=== PATIENT | female | born 1965 | race Caucasian/White ===

== ENCOUNTER 2019-12-15 08:12 | Outpatient (CLI) | payer MEDICARE, MEDICAID, SELFPAY ==
[2019-12-15 09:38] LABS: Alanine Aminotransferase 26 U/L (4-35); Albumin Level 4.3 g/dL (3.5-5.1); Alkaline Phosphatase 106 U/L (38-126); Aspartate Amino Transferase 24 U/L (14-36); Bilirubin,Total 0.5 mg/dL (0.2-1.3); Blood Urea Nitrogen 21 mg/dL (7-17); Calcium 9.6 mg/dL (8.4-10.2); Carbon Dioxide 30 mmol/L (22-30); Chloride 102 mmol/L (98-107); Estimated Glomerular Filt Rate > 60; Glucose 88 mg/dL (65-105); Potassium 4.9 mmol/L (3.4-5.0); Sodium 143 mmol/L (137-145)
== END 2019-12-15 08:13 | disposition home or self-care (01) ==
PROVIDERS: PCP Family Medicine; Visit Provider Physician Assistant
DX: Z13.1 Encounter for screening for diabetes mellitus (principal); Z13.220 Encounter for screening for lipoid disorders
CPT/HCPCS: 36415; 80053

== ENCOUNTER 2020-04-05 00:09 | Outpatient (CLI) | payer MEDICARE, SELFPAY ==
[2020-04-05 17:43] LABS: SARS-CoV-2 RNA PCR Negative
== END 2020-04-05 00:10 | disposition home or self-care (01) ==
LOC: ANHCOVIDDT 00:09
PROVIDERS: PCP Family Medicine; Visit Provider Podiatrist Foot & Ankle Surgery
DX: Z01.818 Encounter for other preprocedural examination (principal); Z11.59 Encounter for screening for other viral diseases
CPT/HCPCS: 87635; C9803; U0003

== ENCOUNTER 2020-04-07 00:57 | Day surgery (SDC) | payer MEDICARE, SELFPAY ==
[2020-03-24 16:24] VITALS: BMI 29.7
--- NOTE | ~2020-04-07 | XR_ITS ---
EXAMINATION: XR surgery orthopedic DATE: 04/07/2020 09:25 INDICATION: Left second proximal interphalangeal joint arthrodesis TECHNIQUE: Single fluoroscopic dorsal plantar spot images of the left forefoot were obtained during p rocedure performed by Dr. Castillo. Radiologist was not present for the imaging or procedure. The [place] of fluoroscopy time used during this procedure was 0.2 minutes. COMPARISON: None. FINDINGS: Image demonstrates changes of an internally fixed left second proximal interphalangeal joint arthrode sis with a compression screw placed over an axially directed guide pin. There is expected postoperati ve gas at the joint space. Additional postoperative changes a chronic bunionectomy at the medial head of the first metatarsal and screw fixation of a old healed realignment osteotomy at the head of the first metatarsal. Alignment appears near-anatomic. No fracture. Mild osteoarthritis at the first meta tarsophalangeal and first interphalangeal joints. IMPRESSION: 1. Expected appearance post instrumented left second toe proximal interphalangeal joint arthrodesis. See procedure note for further detail. Reviewed, dictated and finalized at location A. IMPRESSION: 1. Expected appearance post instrumented left second toe proximal interphalange al joint arthrodesis. See procedure note for further detail.
--- NOTE | 2020-04-07 07:12 | WPDHPUPDATE1 ---
History and Physical Update Update Date/Time: 04/07/20 07:12 History and Physical has been reviewed, including an updated exam of the patient. There are NO changes in the patient's condition. Risks, benefits, and alternatives have been discussed and questions answered. Patient agrees to proceed with procedure.
--- NOTE | 2020-04-07 07:24 | WPDANESEPPF ---
Anes - Initial Pre Proc Eval Procedure: Operation Date: 04/07/20 09:00 Proposed Procedures p Arthrodesis of Proximal Interphalangeal Joint Second Digit Left Foot - Quintin Castillo JR, MD Date/Time: 04/07/20 07:24 Surgeon: Quintin Castillo JR, MD Pre Op Diagnosis: fx with malunion 2nd digit left foot Patient Data Age: 55 Gender: F Height: 5 ft 7 in Weight: 90.2 kg Allergies Allergy/AdvReac Type Severity Reaction Status Date / Time No Known Allergies Allergy Verified 04/07/20 07:21 Home Medications Medication Instructions Recorded Confirmed Type aripiprazole 10 mg tablet 10 mg PO DAILY #90 tablet 10/13/19 04/07/20 Rx bupropion HCl 150 mg 24 hr tablet, 150 mg PO QAM #90 tablet 10/13/19 04/07/20 Rx extended release meloxicam 15 mg tablet 15 mg PO DAILY #30 tablet 12/14/19 04/07/20 Rx Acetaminophen Extra Strength 500 mg BYMOUTH TID PRN 03/24/20 04/07/20 History Patient hx anesthesia problems: none Family hx anesthesia problems: none [facility] Past Medical History Medical History Schizophrenia Surgical History Surgical History H/O knee surgery H/O: hysterectomy (~2014) S/P foot surgery, right (~2018) Family History Family History Mother Depression Family history of mental disorder Sibling Patient's brother is in good health Father Patient's father is Social History Social History Smoking status: Former smoker Second hand tobacco smoke exposure: No Smoking end date: 11/03/92 Alcohol intake: never Gender identity (if verbalized by the patient): Female Anes - Eval Final PreProcedure Day of Procedure 04/07/20 07:24 Patient weight: obese Heart: regular rate and rhythm Lungs: clear to auscultation Airway: Mallampati scale class II Neurological: other (alert) Last oral intake: >/= 8 hours ASA classification: III Emergent: no Anesthetic plan: proceed Anesthesia type and monitoring: general LMA and standard monitoring Informed Consent: The patient's anesthetic plan and its attendant risks and benefits were discussed with the patient/family/POA. Questions were solicited and answers provided to the satisfaction of the patient/family/POA.
[2020-04-07] MEDS: LACTATED RINGERS 1,000 ML 30 ML IV CONT (07:40)
[2020-04-07 07:56] VITALS: BP 113/81; PULSE 71; RESP 16; TEMP 36.7; O2SAT 100
[2020-04-07] MEDS: ceFAZolin 2 GM/D5W 50 ML 2 GM/50 ML BAG IVPB (08:33)
[2020-04-07] MEDS: LIDOCAINE HCL 2% LOCAL INJ 20 ML VIAL 10 ML INFILTRATE (08:43)
--- NOTE | 2020-04-07 09:32 | PM.OP ---
Procedure Note - Brief Procedure Note - Brief Date of procedure: 04/07/20 Pre-op diagnosis: fx with malunion 2nd digit left foot Post-op diagnosis: same Procedure performed: Arthrodesis of the proximal interphalangeal joint of the left foot Anesthesia: MAC and local Surgeon: Quintin Castillo JR, DPM Estimated blood loss (mL): 1 Complications: No immediate complications Condition: stable Disposition: same day
[2020-04-07 09:35] VITALS: BP 102/69; PULSE 55; RESP 18; O2SAT 98
[2020-04-07 10:05] VITALS: BP 106/71; PULSE 51; RESP 16
[2020-04-07 10:30] VITALS: BP 123/68; PULSE 50; RESP 16
[2020-04-07 11:00] VITALS: BP 120/79; PULSE 48; RESP 16
--- NOTE | 2020-04-07 17:11 | OP_ITS ---
DATE OF PROCEDURE: 04/07/2020 PREOPERATIVE DIAGNOSIS: Malunion of fracture of 2nd digit, left foot. POSTOPERATIVE DIAGNOSIS: Malunion of fracture of 2nd digit, left foot. PROCEDURE PERFORMED: Arthrodesis of the proximal interphalangeal joint to the left 2nd digit. PATHOLOGY: None. ANESTHESIA: MAC with local. HEMOSTASIS: Pneumatic ankle tourniquet at 250 mmHg. ESTIMATED BLOOD LOSS: Minimal. MATERIALS USED: One [employer] Phalinx hammertoe implant, medium with one 0.045 inch K-wire. INJECTABLES: 20 mL of a 1:1 mixture of 2% lidocaine plain and 0.5% Marcaine plain injected preoperatively. COMPLICATIONS: None. PROCEDURE IN DETAIL: Under mild sedation, the patient was brought to the operating room, placed on the operating table in the supine position. Pneumatic ankle tourniquet was placed about the patient's left ankle. Following IV sedation, local anesthesia was obtained about the left foot utilizing 20 mL of a 1:1 mixture of 2% lidocaine plain and 0.5% Marcaine plain. The foot was then scrubbed, prepped, and draped in the usual aseptic manner. An Esmarch bandage was then used to examine the patient's left foot and pneumatic ankle tourniquet was then inflated. Surgery began in the following manner. Attention was directed to the dorsal aspect of the second digit of the left foot where an incision was made starting along the base of the proximal phalanx of the second digit extending to the PIP joint of the left second digit. Incision was continued deep down through subcutaneous tissues using sharp and blunt dissection. All bleeders were ligated and cauterized as necessary. At this point, a transverse tenotomy was performed over the dorsal aspect of the proximal interphalangeal joint, but there was a noted clinical malposition of the second digit in the transverse plane laterally. At this point, the head of the proximal phalanx was freed of any tendinous and capsular structures. Next, the base of the middle phalanx was also exposed and freed of all tendinous and ligamentous structures. There was significant damage to the base of the proximal phalanx apparent with an old malunited intra-articular fracture to the second digit with malunion and dislocation. At this point, the abnormal portion of the middle phalanx was resected utilizing an oscillating bone cell. Next, the head of the proximal phalanx was also resected utilizing an oscillating bone saw. At this point, utilizing standard principles and techniques for the [facility] Phalinx hammertoe implant, size medium was positioned in a cannulated fashion along the PIP joint of the second digit. After implantation, the cannulated wire was drilled proximally into the proximal phalanx in order to help stabilize the digit. After implantation, the second digit was noted to be aligned in all planes. Next, a Satsuma was used to hold the K-wire which was bent dorsally and then cut utilizing a wireless manager. A DermApprovedgan ball was placed along the tip of the cut K-wire. Next, the tendinous structures to the PIP joint were reapproximated and coapted utilizing 3-0 Vicryl. Next, the subcutaneous structures were reapproximated and coapted utilizing 4-0 Vicryl. Next, the skin was reapproximated and coapted utilizing 4-0 Prolene in horizontal mattress suture fashion technique. Upon completion of procedure, the incision was dressed with Adaptic, 4x4s, Kerlix, and Coban. The pneumatic ankle tourniquet was then deflated and a prompt hyperemic response was noted to all digits of the left foot. A CAM walker boot was then applied. It is important to note that Dr. Castillo was present throughout the procedure. The patient did very well with the procedure and the anesthesia. She was transferred to the recovery room with vital signs stabl
== END 2020-04-07 11:45 | disposition home or self-care (01) ==
PROVIDERS: PCP Family Medicine; Visit Provider Podiatrist Foot & Ankle Surgery
PROC: (CPT 28750; principal; 2020-04-07 09:00)
DX: S92.512K Displaced fracture of proximal phalanx of left lesser toe(s), subsequent encounter for fracture with nonunion (principal); F20.9 Schizophrenia, unspecified; Z87.891 Personal history of nicotine dependence; E66.9 Obesity, unspecified; Z68.31 Body mass index [BMI] 31.0-31.9, adult; X50.0XXD Overexertion from strenuous movement or load, subsequent encounter
CPT/HCPCS: 28285; 87635; C1776; C9803; J0690; J2250; J2704; J3010; J7120; U0003

== ENCOUNTER 2020-04-28 09:26 | Outpatient (CLI) | payer MEDICARE, SELFPAY ==
--- NOTE | ~2020-04-28 | MM_ITS ---
EXAMINATION: MM screening [facility] BI w cici HISTORY: Screening mammogram TECHNIQUE: Craniocaudal and mediolateral oblique 3-D tomosynthesis images were obtained and synthetic 2-D images were generated. CAD analysis was submitted and interpreted. COMPARISON: 12/18/2018 bilateral digital screening mammogram BREAST PARENCHYMAL COMPOSITION: The breasts are almost entirely fatty. FINDINGS: There is no evidence of suspicious mass, calcification, or architectural distortion to sugg est malignancy in either breast. There has been no suspicious interval change. IMPRESSION: 1. No mammographic evidence of malignancy. 2. Recommend routine screening mammography in one year. BI-RADS Category 1: Negative Reviewed, dictated and finalized at location A.
[2020-04-28 10:38] LABS: Cholesterol 199 mg/dL (0-200); HDL Direct 48 mg/dL; Triglycerides 95 mg/dL (<150)
[2020-04-28 10:48] LABS: LDL Cholesterol Direct 113 mg/dL
== END 2020-04-28 09:27 | disposition home or self-care (01) ==
PROVIDERS: PCP Family Medicine; Visit Provider Physician Assistant
DX: Z12.31 Encounter for screening mammogram for malignant neoplasm of breast (principal); E78.5 Hyperlipidemia, unspecified; I10 Essential (primary) hypertension
CPT/HCPCS: 36415; 77063; 77067; 80061

== ENCOUNTER 2020-05-30 10:27 | Outpatient (CLI) | payer MEDICARE, SELFPAY ==
[2020-05-30 11:30] LABS: Alanine Aminotransferase 33 U/L (4-35); Aspartate Amino Transferase 26 U/L (14-36)
== END 2020-05-30 10:28 | disposition home or self-care (01) ==
PROVIDERS: PCP Family Medicine; Visit Provider Podiatrist Foot & Ankle Surgery
DX: B35.1 Tinea unguium (principal)
CPT/HCPCS: 36415; 84450; 84460

== ENCOUNTER 2020-08-09 10:44 | Outpatient (CLI) | payer MEDICARE, SELFPAY ==
[2020-08-09 11:53] LABS: Alanine Aminotransferase 24 U/L (4-35); Aspartate Amino Transferase 26 U/L (14-36)
== END 2020-08-09 10:45 | disposition home or self-care (01) ==
LOC: ANHLAB 10:48
PROVIDERS: PCP Family Medicine; Visit Provider Podiatrist Foot & Ankle Surgery
DX: B35.1 Tinea unguium (principal)
CPT/HCPCS: 36415; 84450; 84460

== ENCOUNTER 2020-10-16 09:50 | Outpatient (CLI) | payer MEDICARE, SELFPAY ==
[2020-10-16 10:24] LABS: Alanine Aminotransferase 30 U/L (4-35); Albumin Level 4.5 g/dL (3.5-5.1); Alkaline Phosphatase 102 U/L (38-126); Anion Gap 6 mmol/L (8-16); Aspartate Amino Transferase 31 U/L (14-36); Bilirubin,Total 0.4 mg/dL (0.2-1.3); Blood Urea Nitrogen 21 mg/dL (7-17); Calcium 9.9 mg/dL (8.4-10.2); Carbon Dioxide 29 mmol/L (22-30); Chloride 106 mmol/L (98-107); Cholesterol 231 mg/dL (0-200); Estimated Glomerular Filt Rate > 60; Glucose 97 mg/dL (65-105); HDL Direct 62 mg/dL; Potassium 4.5 mmol/L (3.4-5.0); Sodium 141 mmol/L (137-145); Triglycerides 58 mg/dL (<150)
[2020-10-16 10:28] LABS: Hemoglobin A1C 4.8 % (<5.7)
[2020-10-16 10:36] LABS: LDL Cholesterol Direct 131 mg/dL
== END 2020-10-16 09:51 | disposition home or self-care (01) ==
LOC: ANHLAB 09:52
PROVIDERS: PCP Family Medicine; Visit Provider Physician Assistant
DX: Z13.1 Encounter for screening for diabetes mellitus (principal); E78.5 Hyperlipidemia, unspecified; R73.09 Other abnormal glucose
CPT/HCPCS: 36415; 80053; 80061; 83036

== ENCOUNTER → 2021-01-02 00:26 | Outpatient (CLI) | payer MEDICARE, SELFPAY ==
[2021-01-02 19:08] LABS: SARS-CoV-2 RNA PCR Negative
== END ==
PROVIDERS: PCP Family Medicine; Visit Provider Podiatrist Foot & Ankle Surgery
DX: Z01.812 Encounter for preprocedural laboratory examination (principal); Z20.822 Contact with and (suspected) exposure to COVID-19
CPT/HCPCS: C9803; U0003; U0005

== ENCOUNTER 2021-01-05 01:08 | Day surgery (SDC) | payer MEDICARE, MEDICAID, SELFPAY ==
[2021-01-01 18:48] VITALS: BMI 32.8
--- NOTE | 2021-01-04 13:42 | WPDANESEPPF ---
Anes - Initial Pre Proc Eval Procedure: Operation Date: 01/05/21 10:30 Proposed Procedures p Arthrodesis Of The Interphalangeal Joint Of The Left Hallux - Quintin Castillo JR, MD Date/Time: 01/04/21 13:42 Surgeon: Quintin Castillo JR, MD Pre Op Diagnosis: Arthritis Of Interphalangeal Joint Left Hallux Patient Data Age: 55 Gender: F Height: 1.7 m Weight: 95.25 kg Allergies Allergy/AdvReac Type Severity Reaction Status Date / Time No Known Allergies Allergy Verified 10/13/20 09:41 Home Medications Medication Instructions Recorded Confirmed Type meloxicam 15 mg tablet 15 mg PO DAILY #30 tablet 12/14/19 01/01/21 Rx aripiprazole 10 mg tablet 10 mg PO DAILY #90 tablet 10/13/20 01/01/21 Rx bupropion HCl 300 mg 24 hr tablet, 300 mg PO QAM #90 tablet 10/13/20 01/01/21 Rx extended release tramadol 50 mg PO BID PRN 01/01/21 01/01/21 History PMFSH Past Medical History Medical History (Updated 01/04/21 @ 13:43 by Edmund Petty MD) Bipolar 1 disorder Obesity Schizophrenia Surgical History Surgical History H/O knee surgery H/O: hysterectomy (~2014) S/P foot surgery, right (~2018) Family History Family History Mother Depression Family history of mental disorder Sibling Patient's brother is in good health Father Patient's father is Social History Social History Smoking status: Never smoker Second hand tobacco smoke exposure: No Smoking end date: 11/03/92 Alcohol intake: never Gender identity (if verbalized by the patient): Female Spiritual care concerns: No Anes - Eval Final PreProcedure Day of Procedure 01/04/21 13:42 Patient weight: obese Heart: regular rate and rhythm Lungs: clear to auscultation and normal air movement Airway: Mallampati scale class II Neurological: alert and oriented Last oral intake: >/= 8 hours ASA classification: III Emergent: no Anesthetic plan: proceed Anesthesia type and monitoring: general GIVS Informed Consent: The patient's anesthetic plan and its attendant risks and benefits were discussed with the patient/family/POA. Questions were solicited and answers provided to the satisfaction of the patient/family/POA.
--- NOTE | ~2021-01-05 | XR_ITS ---
EXAMINATION: XR surgery orthopedic EXAM DATE: 01/05/2021 11:14 INDICATION: Left foot arthrodesis. TECHNIQUE: Fluoroscopy used during XR surgery orthopedic performed by Dr. Quintin Castillo JR MD. The DAP for this procedure was 0.6 cGycm2. FINDINGS: There are orthopedic screws bridging the left 1st interphalangeal joint and 2nd proximal i nterphalangeal joint. There are 2 screws identified bridging an old 1st metatarsal fracture or osteot mark. Correlate with procedure note. IMPRESSION: Fluoroscopy used during arthrodesis left foot. Reviewed, dictated and finalized at location A. ILATED RIB FITTER
--- NOTE | 2021-01-05 07:14 | WPDHPUPDATE1 ---
History and Physical Update Update Date/Time: 01/05/21 07:14 History and Physical has been reviewed, including an updated exam of the patient. There are NO changes in the patient's condition. Risks, benefits, and alternatives have been discussed and questions answered. Patient agrees to proceed with procedure.
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
[2021-01-05] MEDS: LACTATED RINGERS 1,000 ML 30 ML IV CONT (09:30)
[2021-01-05] MEDS: BUPIVACAINE HCL 0.5% PF 30 ML VIAL INFILTRATE (10:16)
[2021-01-05] MEDS: ceFAZolin 2 GM/D5W 50 ML 2 GM/50 ML BAG IVPB (10:16)
[2021-01-05] MEDS: LIDOCAINE HCL 2% LOCAL INJ 20 ML VIAL 10 ML INFILTRATE (10:16)
[2021-01-05 10:27] VITALS: BP 110/63; PULSE 82; RESP 18; TEMP 36.8; O2SAT 97; BMI 32.8
[2021-01-05 11:24] VITALS: BP 112/67; PULSE 52; RESP 12; O2SAT 96
--- NOTE | 2021-01-05 11:50 | PM.PROC ---
Procedure Note - Detailed Date of procedure: 01/05/21 Pre-op diagnosis: Arthritis Of Interphalangeal Joint Left Hallux Anesthesia: GLMA and local Surgeon: Quintin Castillo JR, DPM Estimated blood loss (mL): 1 Drains: No Packing: No Pathology: none sent Complications: No immediate complications Condition: stable Disposition: same day Findings: Under mild sedation, the patient was brought to the operating room, placed on the operating table in the supine position. A pneumatic ankle tourniquet was placed about the patient's ankle. Following IV sedation, I performed a proximal first metatarsal Paiz Block with 20cc's of a one to one mix of 0.5% Marcaine plain and 2% Lidocaine plain. The foot was then scrubbed, prepped, and draped in the usual aseptic manner. An Esmarch bandage was then used to examine the patient's foot and pneumatic ankle tourniquet was then inflated. Surgery began in the following manner. Attention was directed to the hallux where a 3cm incision was made just proximal to the nail fold extending to the base of the hallux. A transverse tenotomy was created dorsal to the interphalangeal joint, next the head of the proximal phalanx was resected with an sagittal saw blade. Next, I denuded the cartilage with an oscillating saw blade from the base of the distal phalanx. I used a 2.0 drill bit to fenestrate the distal proximal phalanx and base of the distal phalanx of the hallux to facilitate fusion of the joint. Moreover, I drove a K wire from the base of the distal phalanx exiting the hallux and retrograded through the proximal phalanx unitl the sunchondral bone of the base of the proximal phalanx was felt. Fluoroscopy was used to make sure that the digit and implant were both appropriately positioned within the canals of the proximal and distal phalanges of the hallux. Next, I drove a 45mm by 3.8mm [employer] Headed cannulated screw from distal to proximal in a cannulated fashion excellent compression was noted. Again, I used fluoroscopy to make sure that the screw was within the intramedullary canal of the corresponding phalanges. I repaired the extensor tendon with 2.0 Vicryl. I reapproximated the subcutaneous structures with 4.0 Vicryl and the skin with 4-0 Monocryl in simple in running subcuticular suture fashion technique. The guidewire was removed and final fluoroscopic images were taken. Upon completion of the procedure, the incision was dressed with Adaptic, 4 x 4's, Kerlix, and Coban. The pneumatic ankle tourniquet was then deflated and a prompt hyperemic response noted to all digits of the foot. A surgical shoe was then applied. The patient did very well with the procedure and the anesthesia. The patient was transferred to the recovery room with vital signs stable and vascular status intact to all remaining toes of the affected foot. Following a period of postoperative monitoring, the patient will be discharged home on the following written and oral postoperative instructions: 1. Keep the dressing clean, dry, and intact. Use a cast protector bag with showers. 2. The patient should use a surgical shoe for ambulation postoperatively. 3. The patient should be on bedrest with bathroom priviliges and elevate the affected foot when at rest. 4. The patient to contact Dr. Castillo for all postop care and if any problems arise. 5. Prescriptions were written for Percocet 5/325 dispensed 40 to be taken 1 p.o. q.4 to 6 hours as needed for severe pain.
[2021-01-05 12:45] VITALS: BP 112/76; PULSE 52; RESP 20
== END 2021-01-05 13:00 | disposition home or self-care (01) ==
PROVIDERS: PCP Family Medicine; Visit Provider Podiatrist Foot & Ankle Surgery
PROC: (CPT 28715; principal; 2021-01-05 10:30)
DX: M19.072 Primary osteoarthritis, left ankle and foot (principal); F31.9 Bipolar disorder, unspecified; F20.9 Schizophrenia, unspecified; E66.9 Obesity, unspecified; Z68.32 Body mass index [BMI] 32.0-32.9, adult
CPT/HCPCS: 28755; C9803; J0690; J2250; J2405; J2704; J3010; J7120; U0003; U0005

== ENCOUNTER 2021-01-25 10:31 | Outpatient (CLI) | payer MEDICARE, MEDICAID, SELFPAY ==
[2021-01-25 11:16] LABS: Alanine Aminotransferase 17 U/L (4-35); Albumin Level 4.5 g/dL (3.5-5.1); Alkaline Phosphatase 96 U/L (38-126); Anion Gap 6 mmol/L (8-16); Aspartate Amino Transferase 23 U/L (14-36); Bilirubin,Total 0.2 mg/dL (0.2-1.3); Blood Urea Nitrogen 21 mg/dL (7-17); Calcium 9.8 mg/dL (8.4-10.2); Carbon Dioxide 31 mmol/L (22-30); Chloride 106 mmol/L (98-107); Estimated Glomerular Filt Rate > 60; Glucose 95 mg/dL (65-105); Potassium 4.7 mmol/L (3.4-5.0); Sodium 143 mmol/L (137-145); Uric Acid 3.4 mg/dL (2.5-7.5)
== END 2021-01-25 10:32 | disposition home or self-care (01) ==
PROVIDERS: PCP Family Medicine; Visit Provider Podiatrist Foot & Ankle Surgery
DX: M10.9 Gout, unspecified (principal)
CPT/HCPCS: 36415; 80053; 84550

== ENCOUNTER 2021-05-01 08:02 | Outpatient (CLI) | payer MEDICARE, SELFPAY ==
[2021-05-01 09:11] LABS: Cholesterol 219 mg/dL (0-200); HDL Direct 45 mg/dL; Triglycerides 91 mg/dL (<150)
[2021-05-01 09:12] LABS: Alanine Aminotransferase 24 U/L (4-35); Albumin Level 4.6 g/dL (3.5-5.1); Alkaline Phosphatase 86 U/L (38-126); Anion Gap 11 mmol/L (8-16); Aspartate Amino Transferase 28 U/L (14-36); Bilirubin,Total 0.2 mg/dL (0.2-1.3); Blood Urea Nitrogen 14 mg/dL (7-17); Calcium 9.5 mg/dL (8.4-10.2); Carbon Dioxide 27 mmol/L (22-30); Chloride 103 mmol/L (98-107); Estimated Glomerular Filt Rate > 60; Glucose 104 mg/dL (65-105); Potassium 4.2 mmol/L (3.4-5.0); Sodium 141 mmol/L (137-145)
[2021-05-01 09:22] LABS: LDL Cholesterol Direct 118 mg/dL
== END 2021-05-01 08:03 | disposition home or self-care (01) ==
PROVIDERS: PCP Family Medicine; Referring Provider Family Medicine; Visit Provider Physician Assistant
DX: Z00.00 Encounter for general adult medical examination without abnormal findings (principal); Z13.220 Encounter for screening for lipoid disorders; E66.9 Obesity, unspecified
CPT/HCPCS: 36415; 80053; 80061

== ENCOUNTER 2021-05-01 09:31 | Outpatient (CLI) | payer MEDICARE, SELFPAY ==
--- NOTE | ~2021-05-01 | MM_ITS ---
EXAMINATION: MM screening [facility] BI w cici HISTORY: Screening TECHNIQUE: Craniocaudal and mediolateral oblique 3-D tomosynthesis images were obtained and synthetic 2-D images were generated. CAD analysis was submitted and interpreted. COMPARISON: Comparison to multiple prior studies sequentially, with oldest reviewed study dated 12/18. BREAST PARENCHYMAL COMPOSITION: There are scattered areas of fibroglandular density. FINDINGS: There is no evidence of suspicious mass, calcification, or architectural distortion to sugg est malignancy in either breast. There has been no suspicious interval change. IMPRESSION: 1. No mammographic evidence of malignancy. 2. Recommend routine screening mammography in one year. BI-RADS Category 1: Negative Reviewed, dictated and finalized at location A.
== END 2021-05-01 09:32 | disposition home or self-care (01) ==
PROVIDERS: PCP Family Medicine; Visit Provider Physician Assistant
DX: Z12.31 Encounter for screening mammogram for malignant neoplasm of breast (principal)
CPT/HCPCS: 36415; 77063; 77067; 80053; 80061

== ENCOUNTER 2021-05-23 10:28 | Outpatient (CLI) | payer MEDICARE, SELFPAY ==
[2021-05-23 11:30] LABS: Alanine Aminotransferase 17 U/L (4-35); Aspartate Amino Transferase 33 U/L (14-36)
== END 2021-05-23 10:29 | disposition home or self-care (01) ==
LOC: ANHLAB 10:31
PROVIDERS: PCP Family Medicine; Visit Provider Podiatrist Foot & Ankle Surgery
DX: B35.1 Tinea unguium (principal)
CPT/HCPCS: 36415; 84450; 84460

== ENCOUNTER 2022-02-08 08:42 | Emergency (ER) | payer MEDICARE, SELFPAY ==
--- NOTE | ~2022-02-08 | XR_ITS ---
EXAMINATION: XR foot RT min 3V, XR heel RT min 2V EXAM DATE: 02/08/2022 09:31 INDICATION: Fall, foot pain, surgery October 2021. TECHNIQUE: Right foot dorsoplantar, lateral and oblique projections obtained and reviewed. Frontal and lateral projections right calcaneus. Comparison is made to prior examination from 07/02/2017. FINDINGS: Right metatarsal bones unremarkable. There are surgical changes at the talus, calcaneus, subtalar joint including arthrodesis of the subtalar joint. Hardware is intact. There is moderate-siz ed inferior calcaneal spur. Small Nieves's deformity. There are no acute fractures identified. Mild to moderate polyarticular primary osteoarthritis. There are old 3rd, 4th metatarsal neck fractures. Compared to previous examination, some decrease in Boehler's angle suspected, loss of the subtalar tony int space and also interval orthopedic hardware, subtalar arthrodesis. IMPRESSION: 1. No acute right foot, calcaneal findings. 2. Interval subtalar arthrodesis. 3. Other chronic findings. Reviewed, dictated and finalized at location A. IMPRESSION: 1. No acute right foot, calcaneal findings. 2. Interval subtalar arthrodesis. 3. Other chronic findings.
[2022-02-08 08:51] VITALS: BP 133/56; PULSE 67; RESP 20; TEMP 36.7; O2SAT 96
--- NOTE | 2022-02-08 09:37 | PC.NURSE ---
Per Krystin in xray, pt declined imaging of elbow because it's just a scrape .
--- NOTE | 2022-02-08 09:43 | ED.LOWEXIN ---
HPI - Extremity Injury (Lower) General Chief Complaint: Extremity Injury, Lower Stated Complaint: fall Time Seen by Provider: 02/08/22 08:50 Source: RN notes reviewed History of Present Illness HPI Narrative: Patient presents emergency department from home for a fall. Patient is a last night she was walking when she tripped and fell she is during the fall she injured her left foot with pain in her left heel she states that she recently had surgery approximately 4 months ago by podiatry in her left foot in 1 to make sure everything was okay she she did have mild abrasion to her left elbow but denies any definable pain in the elbow she denies striking her head or any loss of consciousness states she not taking medication for the symptoms today she denies any numbness or tingling or any other Related Data Allergies Allergy/AdvReac Type Severity Reaction Status Date / Time No Known Allergies Allergy Verified 02/08/22 09:01 Review of Systems Review of Systems: Gen.: Denies fevers or chills Musculoskeletal: See HPI Neuro: Denies head injury, numbness, tingling, weakness Skin: Denies rash Endo: Denies DM PMFSH Past Medical History Medical History Bipolar 1 disorder Obesity Radiculopathy Schizophrenia Surgical History Surgical History H/O knee surgery H/O: hysterectomy (~2014) S/P foot surgery, right (~2018) Family History Family History Mother Depression Family history of mental disorder Sibling Patient's brother is in good health Father Patient's father is Social History Social History Second hand tobacco smoke exposure: No Smoking end date: 11/03/92 Alcohol intake: never Gender identity (if verbalized by the patient): Female Spiritual care concerns: No Exam Narrative: APPEARANCE: No acute distress, nontoxic, resting in bed Eyes: EOMI HEENT: Normocephalic, atraumatic, RESPIRATORY: No respiratory distress MUSCULOSKELETAl: Tender palpation over the left dorsal and inferior heel no swelling or ecchymosis present no tenderness of the remainder of the foot no tenderness of the ankle dorsalis pedis pulse 2+ neurovascular intact, mild superficial abrasion over the left elbow no tenderness over the left medial lateral posterior elbow full range of motion without pain radial pulse 2+ neurovascular intact NEURO: Awake and alert. Following commands, speech normal, no focal deficits SKIN:: Warm, dry. Normal Color no rash or lesions Course Course Emergency Course: Discussed with patient results of workup and diagnosis. Discussed need for follow-up with primary care, proper use of medication, and reasons to return to the emergency department. Patient understands and agrees to current treatment plan Vital Signs Vital signs: Vital Signs Temperature 98.1 F 02/08/22 08:51 Pulse Rate 67 02/08/22 08:51 Respiratory Rate 20 02/08/22 08:51 Blood Pressure 133/56 L 02/08/22 08:51 Pulse Oximetry 96 02/08/22 08:51 Temperature 98.1 F 02/08/22 08:51 Pulse Rate 67 02/08/22 08:51 Respiratory Rate 20 02/08/22 08:51 Blood Pressure 133/56 L 02/08/22 08:51 Pulse Oximetry 96 02/08/22 08:51 MDM - Extremity Injury (Lower) Imaging Data Radiologist's impression: ITS Impressions Foot X-Ray 02/08/22 09:33 IMPRESSION: 1. No acute right foot, calcaneal findings. 2. Interval subtalar arthrodesis. 3. Other chronic findings. Heel X-Ray 02/08/22 09:33 IMPRESSION: 1. No acute right foot, calcaneal findings. 2. Interval subtalar arthrodesis. 3. Other chronic findings. Discharge Plan Discharge Clinical Impression: Contusion of foot, left, Abrasion of elbow, left Patient Disposition: Home, Self-Care Condit
[2022-02-08] MEDS: IBUPROFEN 600 MG TABLET PO (10:02)
[2022-02-08 10:12] VITALS: BP 136/74
== END 2022-02-08 10:15 | disposition home or self-care (01) ==
PROVIDERS: Emergency Provider Emergency Medicine; PCP Family Medicine
DX: S90.31XA Contusion of right foot, initial encounter (principal); S50.312A Abrasion of left elbow, initial encounter; F31.9 Bipolar disorder, unspecified; F20.9 Schizophrenia, unspecified; E66.9 Obesity, unspecified; Z68.31 Body mass index [BMI] 31.0-31.9, adult; Z98.1 Arthrodesis status; W01.0XXA Fall on same level from slipping, tripping and stumbling without subsequent striking against object, initial encounter
CPT/HCPCS: 73630; 73650; 99283; A9270

== ENCOUNTER 2022-04-09 14:15 | Outpatient (CLI) | payer MEDICARE, SELFPAY ==
[2022-04-09 15:10] LABS: Alanine Aminotransferase 22 U/L (6-35); Aspartate Amino Transferase 25 U/L (14-36)
== END 2022-04-09 14:16 | disposition home or self-care (01) ==
LOC: ANHLAB 14:18
PROVIDERS: PCP Family Medicine; Visit Provider Podiatrist Foot & Ankle Surgery
DX: B35.1 Tinea unguium (principal)
CPT/HCPCS: 36415; 84450; 84460

== ENCOUNTER 2023-08-27 09:28 | Outpatient (CLI) | payer MEDICARE, MEDICAID, SELFPAY ==
--- NOTE | ~2023-08-27 | MM_ITS ---
EXAMINATION: MM screening brody BI w cici HISTORY: Screening mammogram TECHNIQUE: Craniocaudal, rotated lateral craniocaudal and mediolateral oblique 3-D tomosynthesis imag es of both breasts were obtained and synthetic 2-D images were generated. CAD analysis was submitted and interpreted. COMPARISON: 05/01/2021, 04/28/2020, 12/18/2018 bilateral screening mammogram examinations BREAST PARENCHYMAL COMPOSITION: The breasts are almost entirely fatty. FINDINGS: There is no evidence of suspicious mass, calcification, or architectural distortion to sugg est malignancy in either breast. There has been no suspicious interval change. IMPRESSION: 1. No mammographic evidence of malignancy. 2. Recommend routine screening mammography in one year. BI-RADS Category 1: Negative Reviewed, dictated and finalized at location A.
== END 2023-08-27 09:29 | disposition home or self-care (01) ==
LOC: ANHIMG 09:29
PROVIDERS: PCP Family Medicine; Visit Provider Physician Assistant
DX: Z12.31 Encounter for screening mammogram for malignant neoplasm of breast (principal)
CPT/HCPCS: 77063; 77067

== ENCOUNTER 2023-08-28 06:34 | Outpatient (CLI) | payer MEDICARE, MEDICAID, SELFPAY ==
[2023-08-28 07:55] LABS: Alanine Aminotransferase 27 U/L (6-35); Albumin Level 4.7 g/dL (3.5-5.1); Alkaline Phosphatase 94 U/L (38-126); Anion Gap 9 mmol/L (8-16); Aspartate Amino Transferase 27 U/L (14-36); Bilirubin,Total 0.6 mg/dL (0.2-1.3); Blood Urea Nitrogen 18 mg/dL (7-17); Calcium 9.5 mg/dL (8.4-10.2); Carbon Dioxide 24 mmol/L (22-30); Chloride 103 mmol/L (98-107); Estimated Glomerular Filt Rate > 60; Glucose 104 mg/dL (65-110); Potassium 3.8 mmol/L (3.4-5.0); Sodium 136 mmol/L (137-145)
[2023-08-28 15:05] LABS: Cholesterol 198 mg/dL (0-200); HDL Direct 63 mg/dL; Triglycerides 58 mg/dL (<150)
[2023-08-28 15:10] LABS: LDL Cholesterol Direct 104 mg/dL
== END 2023-08-28 06:35 | disposition home or self-care (01) ==
PROVIDERS: PCP Family Medicine; Visit Provider Physician Assistant
DX: E78.5 Hyperlipidemia, unspecified (principal); Z13.220 Encounter for screening for lipoid disorders; Z13.1 Encounter for screening for diabetes mellitus
CPT/HCPCS: 36415; 80053; 80061

== ENCOUNTER 2024-01-01 08:33 | Outpatient (CLI) | payer MEDICARE, MEDICAID, SELFPAY ==
--- NOTE | 2024-01-01 09:04 | ECG_ITS ---
Measurements Intervals [place] Rate: 59 P: 32 [place]: 157 QRS: 19 QRSD: 81 T: 32 QT: 396 QTc: 393 Interpretive Statements SINUS BRADYCARDIA NO PREVIOUS ECG AVAILABLE FOR COMPARISON Electronically Signed On 01-01-2024 15:43:00 FLIGHT SOFTWARE TEST ENGINEER by Aura Gar M.D.
== END 2024-01-01 08:34 | disposition home or self-care (01) ==
LOC: ANHIMG 08:37 → ANHCARD 08:37
PROVIDERS: PCP Family Medicine; Visit Provider Family Medicine
DX: E78.2 Mixed hyperlipidemia (principal); Z01.818 Encounter for other preprocedural examination
CPT/HCPCS: 93005

== ENCOUNTER 2024-12-03 02:31 | Day surgery (SDC) | payer MEDICARE, MEDICAID, SELFPAY ==
[2024-11-30 09:19] VITALS: BMI 33.8
--- OUTSIDE RECORDS SUMMARY | 2024-12-03 02:36 | XMS_ITS | Continuity of Care Document ---
Author Organization [facility] Address [id number] [place] [address] [address] [place] [address] Phone Care Team Providers Care Insulator Tester Name Role Phone Suman English Unavailable Unavailable Advance Directives Directive Yes / No Effective Date File Name No Information Encounters Encounter Description Practice Location Reason(s) For Visit Diagnoses Date Provider Providers Copied on Encounter [facility], [address], [place], [place], [id number], [place] tel:[phone] [facility] [place] No Information [address] [facility] [place] , [address], [place], [address], [place]. tel:[phone] Family History Family Member Type Diagnosis Age At Onset No Information Payers Payer name Insurance type Covered democrat ID Authoriza tion(s) No Information Social History Type Description Quantity Date Captured Comments Sex Female Smoking Status No Information Chief Complaint And Reason For Visit No Information Reason For Referral Reason For Referral No Information History Of Present Illness Encounter Date Complaint History Of Prese nt Illness No Information Functional Status Date Functional Assessmen t No Information Instructions Date Instruction Additional Infor mation No Information Assessments Type Assessment Date No Information Patient Care Teams Name Effective Dates (start - stop) Status Members No Information
--- OUTSIDE RECORDS SUMMARY | 2024-12-03 02:36 | XMS_ITS | Referral Summary ---
Author Organization [id number] [place] Address [address] [place] [phone] Care Team Providers Care Nursing Informatics Clinical Analyst Name Role Phone Kaycee Marie MD Primary Care Provider [phone] Encounters Date Type Department Care Team Description 11/26/[address] [facility] Obstetrics and Gynecology [address] [place] [address] Floor [address] [place] [phone] Belgica Smart RN Colonoscopy 11/17/2024 11:59 PM MACHINIST WOOD Anesthesia Event [facility] [address] [phone] Cheryl Rodriguez NP 11/24/[address] [facility] Obstetrics and Gynecology [address] [place] [address] Floor [address] [place] [phone] Kaitlin Jin CMA 11/24/2024 Orders Only [facility] OBGYN [address] [facility] [address] [place] [phone] ProviderThong MD 11/24/2024 4:15 PM MACHINIST WOOD Office Visit [facility] Obstetrics and Gynecology [address] [place] [address] Floor [address] [place] [phone] Kelsey Lim MD Cystocele with prolapse (Primary Dx); Rectal bleeding 11/08/[address] [facility] Obstetrics and Gynecology [address] [place] [address] Floor [address] [place] [phone] Neva Porras technical healthcare consultant question 11/05/[address] [facility] Obstetrics and Gynecology [address] [place] [address] [address] [place] [phone] Kaitlin Jin CMA 11/04/2024 Orders Only [facility] [address] [facility] [address] [place] [phone] Laisha Coreas MD 10/29/[address] [facility] Obstetrics and Gynecology [address] [place] [address] Floor [address] [place] [phone] Belgica Smart, REYES 10/28/[address] [facility] Obstetrics and Gynecology [address] [place] [address] [address] [place] [phone] Belgica Smart, RN 10/28/2024 1:00 PM MACHINIST WOOD Office Visit [facility] Obstetrics and Gynecology [address] [place] [address] Floor [address] [place] [phone] Mixed stress and urge urinary incontinence 10/25/2024 8:00 AM MACHINIST WOOD Office Visit [facility] Obstetrics and Gynecology [address] [place] [address] [address] [place] [phone] Kelsey Lim MD Cystocele with prolapse (Primary Dx); Pressure of female perineum; Rectocele; Vaginal vault prolapse; Vaginal enterocele; Cystocele, midline; Mixed stress and urge urinary incontinence 10/21/[address] [facility] Obstetrics and Gynecology [address] [place] [address] [address] [place] [phone] [place] [place] Scheduling Appointments 10/15/2024 Orders Only [facility] [address] [facility] [address] [place] [phone] Laisha Coreas MD 10/05/2024 3:00 PM MACHINIST WOOD Office Visit [facility] [address] [facility] [address] [place] [phone] Laisha Coreas MD Well woman exam with routine gynecological exam (Primary Dx); Encounter for screening mammogram for malignant neoplasm of breast; Vaginal enterocele; Cystocele, midline; Rectocele; Chronic idiopathic constipation 09/20/2024 Telephone [facility] [address] [phone] Melani Garvey RN from Last 3 Months Allergies Active Allergy Reactions Criticality Noted Date Comments Hydrocodone-Acetaminophen Mental status changes Low 04/13/2024 Medications buPROPion XL (WELLBUTRIN XL) 150 mg 24 hr tabletIndicati ons:Anxiety with Depression Take 1 tablet (150 mg total) by mouth every morning Active multivit,Ca,ir kk-YB-dvpjnl-l or [phone] pc-luz-lwr-mcg tabletIndicati ons:supplement Take 1 tablet by mouth every morning Active celecoxib (CeleBREX) 200 mg capsuleIndicat ions:Pain Take 1 capsule (200 mg total) by mouth as needed for pain 09/26/20 Active traMADoL (ULTRAM) 50 mg tabletIndicati ons:Pain Take 1 tablet (50 mg total) by mouth as needed for pain Active ARIPiprazole (ABILIFY) 5 mg tabletIndicati ons:Mood Take 1 tablet (5 mg total) by mouth every morning 10/25/20 Active ARIPiprazole (ABILIFY) 10 mg tablet Take 0.5 tablets (5 mg total) by mouth every morning 025 Discontinued docusate sodium (COLACE) 100 mg capsuleIndicat ions:constipat ion Take 1 capsule (100 mg total) by mouth 2 (two) times a day 04/15/20 025 Discontinued senna-docusate (PERICOLACE) 8.6-50 mgIndications: constipation Take 1 tablet by mouth 2 (two) times a day as needed for constipation 04/15/20 24 025 Discontinued ibuprofen (ADVIL,MOTRIN) 800 mg tablet Take 1 tablet (800 mg total) by mouth every 6 (six) hours as needed 09/24/20 19 025 Discontinued Active Problems Problem Noted Date Diagnosed Date Vaginal prolapse 11/02/2024 Rectocele 10/05/2024 Cystocele, midline 10/05/2024 Vaginal enterocele 10/05/2024 Chronic idiopathic constipation 10/05/2024 S/P reverse total shoulder arthroplasty, right 0 04/12/2024 Nontraumatic complete tear of right rotator cuff 08/28/2023 Allergic arthritis of shoulder region, right Bicipital tendinitis of right shoulder Right foot pain 12/05/2017 Ankle pain 05/01/2017 Arthralgia of hip 08/26/2013 Immunizations Name Administration Dates Next Due Influenza, Quadrivalent, Split, Intramuscular ,07/29/2016 Influenza, Quadrivalent, Spl it, Preservative Free, Intramuscular 07/26/2019,07/28/2017 Influenza, Trivalent, IM (MDV) 07/09/2018 Pneumococcal Conjugate PCV 13 06/17/2017 ZOSTER LIVE 07/28/2018 ZOSTER Recombinant 10/01/2018 Social History Tobacco Use Types Packs/Day Years Used Date Smoking Tobacco: Former Cigarettes 1.5 12 1 983 - 1994 Passive Smoke Exposure: Never Smokeless Tobacco: Never Tobacco Cessation:Counseling Given: Not Answered [facility] Utilities Answer Date Recorded In the past 12 months has [employer], gas, oil, or water [employer] threatened to shut off services in your home? No 04/13/2024 Social Connection and Isolat ion Panel [NHANES] Answer Date Recorded In a typical week, how many times do you talk on the phone with family, friends, or neighbors? More than three times a week 04/13/2024 How often do you get togethe r with friends or relatives? Once a week 04/13/2024 How often do you attend [facility] or druze services? Never 04/13/2024 Do you belong to any clubs o r organizations such as pentecostal groups, unions, fraternal or athletic groups, or school groups? No 04/13/2024 How often do you attend meet ings of the clubs or organizations you belong to? Never 04/13/2024 Are you , , di vorced, , never , or living with a partner? Never 04/13/2024 AUDIT-C Answer Date Recorded Q1: How often do you have a drink containing alcohol? Never 11/10/2024 Q2: How many drinks containi ng alcohol do you have on a typical day when you are drinking? Patient does not drink Q3: How often do you have si x or more drinks on one occasion? Never 11/10/2024 Overall Financial Resource Strain (CARDIA) Answe r Date Recorded How hard is it for you to pa y for the very basics like food, housing, medical care, and heating? Not hard at all 04/13/2024 Hunger Vital Sign Answer Date Recorded Within the past 12 months, y ou worried that your food would run out before you got the money to buy more. Never true 04/13/20 24 Within the past 12 months, t he food you bought just didn't last and you didn't have money to get more. Never true 04/13/2024 PRAPARE - Transportation Answer Date Re corded In the past 12 months, has l ack of transportation kept you from medical appointments or from getting medications? No 04/03 In the past 12 months, has l ack of transportation kept you from meetings, work, or from getting things needed for daily living? No 04/13/2024 Housing Stability Vital Sign Answer Celso e Recorded In the last 12 months, was t here a time when you were not able to pay the mortgage or rent on time? No 04/13/2024 Number of Times Moved in the Last Year Not on fi le 04/13/2024 At any time in the past 12 m [facility], were you homeless or living in a skilled nursing (including now)? No 04/13/2024 Personal Safety Answer Date Recorded Have you ever been in or are you currently in a harmful physical or emotional relationship or is someone making you feel afraid or unsafe? Denies 04/12/2024 Comments No Sex and Gender Information Value Date Recorded Sex Assigned at Not on file Legal Sex Female 9:01 PM MACHINIST WOOD Gender Identity Not on file Sexual Orientation Not on file Last Filed Vital Signs Vital Sign Reading Time Taken Comments Blood Pressure 105/73 11/24/2024 4:39 PM MACHINIST WOOD Pulse 79 04/15/2024 3:05 PM CDT Temperature 36.6 ??C (97.9 ??F) 04/15/2024 3:05 PM CD T Respiratory Rate 16 04/15/2024 3:05 PM CDT Oxygen Saturation 99% 04/15/2024 3:05 PM CDT Inhaled Oxygen Concentration - - Weight 95.3 kg (210 lb) 11/24/2024 4:39 PM MACHINIST WOOD Height 167.6 cm (5' 6 ) 11/24/2024 4:39 PM MACHINIST WOOD Body Mass Index 33.89 11/24/2024 4:39 PM MACHINIST WOOD Plan of Treatment Not on file Medical Devices Implanted Type Area Sock Lining Examiner Device Identifier Shelf Expiration Date Model / Serial / Lot Metal Bilateral: Foot [employer] Arthrex 24mm Modular Shoulder +4mm Baseplate Glenoid Sterile Ar-0481-42-4 - [id number] Implanted:Qty: 1 on 04/12/2024 by Malik Leavitt MD at [facility] Right: Shoulder [employer] [id number] 11/02/2028 AR-9560-2 4-4 / / [id number] [employer] Univers Revers Univers Joes Shoulder 8 Stem Humeral Ar-9501-08s - [id number] Implanted:Qty: 1 on 04/12/2024 by Malik Leavitt MD at [facility] Right: Shoulder [employer] [id number] 04/02/2028 AR-9501-0 8S / / [id number] [employer] Arthrex 25mm Central Modular Shoulder Screw Baseplate Sterile Ar-9561-25s - [id number] Implanted:Qty: 1 on 04/12/2024 by Malik Leavitt MD at [facility] Right: Shoulder [employer] [id number] 11/02/2027 AR-9561-2 5S / / [id number] [employer] 36mm 24 Baseplate Taper Sphere Glenoid Zs-[id number] - [id number] Implanted:Qty: 1 on 04/12/2024 by Malik Leavitt MD at [facility] Right: Shoulder [employer] [id number] 06/02/2028 AR-9564-2 436 / / [id number] [employer] 4.5mm 32mm Peripheral Screw Bone Sterile Qw-5874-03us - [id number] Implanted:Qty: 1 on 04/12/2024 by Malik Leavitt MD at [facility] Right: Shoulder [employer] [id number] 09/02/2028 AR-9562-3 2NL / / [id number] [employer] 4.5mm 32mm Peripheral Screw Bone Sterile Qz-[id number] - [id number] Implanted:Qty: 1 on 04/12/2024 by Malik Leavitt MD at [facility] Right: Shoulder [employer] [id number] 09/02/2028 AR-9562-3 2NL / / [id number] [employer] Screw Glenoid Locking Reverse Univers Revers 5.5x20mm Titanium Ar-9563-20 - [id number] Implanted:Qty: 1 on 04/12/2024 by Malik Leavitt MD at [facility] Right: Shoulder [employer] [id number] 11/02/2028 AR-9563-2 0 / / [id number] [employer] Screw Glenoid Locking Reverse Univers Revers 5.5x20mm Titanium Ar-9563-20 - [id number] Implanted:Qty: 1 on 04/12/2024 by Malik Leavitt MD at [facility] Right: Shoulder [employer] [id number] 11/02/2028 AR-9563-2 0 / / [id number] [employer] Arthrex Univers Revers 36mm Suture Cup Humeral Sterile Latex Free [id number] - [id number] Implanted:Qty: 1 on 04/12/2024 by Malik Leavitt MD at [facility] Right: Shoulder [employer] [id number] 11/02/2028 AR-9502F- 36CPC / / [id number] [employer] Univers Revers 36mm Shoulder +3mm Small Insert Humeral Sterile Ar-9503s-03 - [id number] Implanted:Qty: 1 on 04/12/2024 by Malik Leavitt MD at [facility] Right: Shoulder [employer] [id number] 09/02/2028 AR-9503S- 03 / / [id number] Procedures Procedure Name Priority Date/Time Associated Diagnosis Comments SCREENING MAMMOGRAM Schedule Routine, Read Routine (OP Routine) 11/24/2024 7:51 AM MACHINIST WOOD SCAN - RADIOLOGY/IMAGING 11/04/2024 8:39 AM MACHINIST WOOD POCT URINALYSIS DIPSTICK Routine 10/28/2024 2:04 PM MACHINIST WOOD Mixed stress and urge urinary incontinence URODYNAMICS 10/28/2024 1:53 PM MACHINIST WOOD SCAN - RADIOLOGY/IMAGING 10/15/2024 11:38 AM MACHINIST WOOD from Last 3 Months Results * Screening Mammogram (11/24/2024 7:51 AM MACHINIST WOOD) Anatomical Region Laterality Modality Breast N/A Mammography Thong Provider MD HERNANDEZ MAMMO PROCEDURES Vanessa l Result * SCAN - RADIOLOGY/IMAGING (11/04/2024 8:39 AM MACHINIST WOOD) Anatomical Region Laterality Modality Other Laisha Coreas MD Final Resu lt * POCT urinalysis dipstick (10/28/2024 2:04 PM MACHINIST WOOD) Color, Urine, POC Yellow Clarity, ur, POC Clear Clear Glucose, ur, POC Negative Negative MG/DL Bilirubin, ur, POC Negative Negative, Small, Moderate, Large Ketones, ur, POC Negative Negative Specific [place], POC 1.020 1.003 - 1.030 Blood, ur, POC Negative Negative pH, ur, POC 5.0 5.0 - 8.0 Protein, ur, POC Negative Negative Urobilinogen, urine, POC 0.2 0.2 - 1.0 mg/dL Nitrite, ur, POC Negative Negative Leukocytes, ur, POC Negative Negative Lot Number [id number] Urine 10/28/2024 2:04 PM MACHINIST WOOD Result [facility] Kelsey Lim MD POINT OF CARE TEST ORDERA BLES Final Result * Urodynamics (10/28/2024 1:53 PM MACHINIST WOOD) Kelsey Lim MD PROCEDURE ORDERABLES F inal Result * SCAN - RADIOLOGY/IMAGING (10/15/2024 11:38 AM MACHINIST WOOD) Anatomical Region Laterality Modality Other us Laisha Coreas MD Final Resu lt from Last 3 Months Insurance IDMS IDMS [facility] MEDICARE O [facility] MEDICARE HMO IDPA Advance Directives For more information, please contact: [phone] * Full Code (Latest Code Status on File) Date Activated Date Inactivated Comments 04/12/2024 5:42 PM 04/16/2024 12:17 AM Care Teams Nursing Informatics Clinical Analyst Relationship Specialty Start Date End Date Kaycee Marie MD PCP - General Family Medicine 01/30/24
--- OUTSIDE RECORDS SUMMARY | 2024-12-03 02:36 | XMS_ITS | Encounter Summary ---
Author Organization [facility] Address [address] [facility] [address] [place] [address] Care Team Providers Care Literacy Coordinator Name Role Phone Kaycee Marie MD Primary Care Provider [phone] Encounter Details Date Type Department Care Team (Late st Contact Info) Description 10/15/2024 Orders Only [facility] [address] [facility] [address] [place] [address] [place] [address] [facility] [address] [place], [place] [id number] Social History Tobacco Use Types Packs/Day Years Used Date Smoking Tobacco: Former Cigarettes Q uit: 1994 [facility] Utilities Answer Date Recorded In the past 12 months has [employer], gas, oil, or water company threatened to shut off services in your [...] week 04/13/2024 How often do you attend chur ch or methodist services? Never 04/13/2024 Do you belong to any clubs o r organizations such as oriental orthodox groups, unions, fraternal or athletic groups, or school groups? No 04/13/2024 How often do you attend meet ings of the clubs or organizations you belong to? Never 04/13/2024 Are you , , di vorced, , never , or living with a partner? Never 04/13/2024 AUDIT-C Answer Date Recorded Q1: How often do you have a drink containing alcohol? Never 04/12/2024 Q2: How many drinks containi ng alcohol do you have on a typical day when you are drinking? Patient does not drink Q3: How often do you have si x or more drinks on one occasion? Never 04/12/2024 Overall Financial Resource Strain (CARDIA) Answe r [...] any time in the past 12 m [facility], were you homeless or living in a care home (including now)? No 04/13/2024 Personal Safety Answer Date Recorded Have you ever been in or are you currently in a harmful physical or emotional relationship or is someone making you feel afraid or unsafe? Denies 04/12/2024 Comments No Sex and Gender Information Value Date Recorded Sex Assigned at Not on file Legal Sex Female 9:01 PM [employer] Gender Identity Not on file Sexual Orientation Not on file documented as of this encounter Plan of Treatment Not on file documented as of this encounter Procedures Procedure Name Priority Date/Time Associated Diagnosis Comments SCAN - RADIOLOGY/IMAGING 10/15/2024 11:38 AM [employer] documented in this encounter Results * SCAN - RADIOLOGY/IMAGING (10/15/2024 11:38 AM [employer]) Anatomical Region Laterality Modality Other us Laisha Coreas MD Final Resu lt documented in this encounter Visit Diagnoses Not on filedocumented in this encounter Care Teams Literacy Coordinator Relationship Specialty Start Date End Date Kaycee Marie MD PCP - General Family Medicine 01/30/24 documented as of this encounter
--- OUTSIDE RECORDS SUMMARY | 2024-12-03 02:36 | XMS_ITS | Clinical Summary ---
Author Organization [id number] [place] Address [address] [place] [phone] Care Team Providers Care [employer] Supervisor Name Role Phone Kaycee Marie MD Primary Care Provider [phone] Allergies Active Allergy Reactions Criticality Noted Date Comments Hydrocodone-Acetaminophen Mental status changes Low 04/13/2024 Medications buPROPion XL (WELLBUTRIN XL) 150 mg 24 hr tabletIndicati ons:Anxiety with Depression Take 1 tablet (150 mg total) by mouth every morning Active multivit,Ca,ir kq-HE-xxveaw-l sd [phone] ma-cln-npe-mcg tabletIndicati ons:supplement Take 1 tablet by mouth every morning Active celecoxib (CeleBREX) 200 mg capsuleIndicat ions:Pain Take 1 capsule (200 mg total) by mouth as needed for pain 09/26/20 24 Active traMADoL (ULTRAM) 50 mg tabletIndicati ons:Pain Take 1 tablet (50 mg total) by mouth as needed for pain Active ARIPiprazole (ABILIFY) 5 mg tabletIndicati ons:Mood Take 1 tablet (5 mg total) by mouth every morning 10/25/20 24 Active ARIPiprazole (ABILIFY) 10 mg tablet Take 0.5 tablets (5 mg total) by mouth every morning 025 Discontinued docusate sodium (COLACE) 100 mg capsuleIndicat ions:constipat ion Take 1 capsule (100 mg total) by mouth 2 (two) times a day 04/15/20 24 025 Discontinued senna-docusate (PERICOLACE) 8.6-50 mgIndications: constipation [...] Ankle pain 05/01/2017 Arthralgia of hip 08/26/2013 Encounters Date Type Department Care Team Description 11/26/2024 Telephone [facility] [address] [place] [address] Floor [address] [phone] Belgica Smart RN Colonoscopy 11/24/2024 4:[address] JUSTICE Office Visit [facility] [address] [place] [address] Floor [address] [phone] Kelsey Lim MD Cystocele with prolapse (Primary Dx); Rectal bleeding 11/24/2024 Telephone [facility] [address] [place] [address] Floor [address] [phone] Kaitlin Jin CMA 11/24/2024 Orders Only [facility] [address] [facility] [address] [place] [address] ProviderThong MD 11/17/2024 11:[address] JUSTICE Anesthesia Event [facility] Operating Room [address] [place] [phone] Cheryl Rodriguez NP 11/08/2024 Telephone [facility] [address] [place] [address] [facility] Floor [address] [phone] Neva Porras, price lister question 11/05/2024 Telephone [facility] [address] [place] [address] Floor [address] [phone] Davin JohnDAISHA ye 11/04/2024 Orders Only [facility] [address] [facility] [address] [place] [phone] Laisha Coreas MD 10/29/2024 Telephone [facility] [address] [place] [address] Floor [address] [phone] Belgica Smart RN 10/28/2024 1:[address] JUSTICE Office Visit [facility] [address] [place] [address] Floor [address] [phone] Mixed stress and urge urinary incontinence 10/28/2024 Telephone [facility] [address] [place] [address] Floor [address] [phone] Belgica Smart RN 10/25/2024 8:[address] JUSTICE Office Visit [facility] [address] [place] [address] Floor [address] [phone] Kelsey Lim MD Cystocele with prolapse (Primary Dx); Pressure of female perineum; Rectocele; Vaginal vault prolapse; Vaginal enterocele; Cystocele, midline; Mixed stress and urge urinary incontinence 10/21/2024 Telephone [facility] [address] [place] [address] Floor [address] [phone] Verona Boston Scheduling Appointments 10/15/2024 Orders Only [facility] [address] [facility] [address] [place] [phone] Laisha Coreas MD 10/05/2024 3:[address] JUSTICE Office Visit [facility] [address] [facility] [address] [place] [phone] Laisha Coreas MD Well woman exam with routine gynecological exam (Primary Dx); Encounter for screening mammogram for malignant neoplasm of breast; Vaginal enterocele; Cystocele, midline; Rectocele; Chronic idiopathic constipation 09/20/2024 Telephone [facility] [address] [facility] [address] [place] [address] Melani Garvey RN from Last 3 Months Immunizations Name Administration Dates Next Due Influenza, Quadrivalent, Split, Intramuscular ,07/29/2016 Influenza, Quadrivalent, Spl it, Preservative Free, Intramuscular 07/26/2019,07/28/2017 Influenza, Trivalent, IM (MDV) 07/09/2018 Pneumococcal Conjugate PCV 13 06/17/2017 ZOSTER LIVE 07/28/2018 ZOSTER Recombinant 10/01/2018 Surgical History Surgery Date Site/Laterality Comments HYSTERECTOMY early ANKLE SURGERY Right multiple, last one was 12/2017 OTHER SURGICAL HISTORY 11/03/1992 - 11/02/1993 Left bone malformation-knee FOOT SURGERY Bilateral + metal implant on both feet, left foot- 09/2019, right- 10/2021 REVERSE TOTAL SHOULDER ARTHROPLASTY 04/03/2024 - 05/02/2024 Right Medical History Medical History Date Comments Nontraumatic complete tear of right rotator cuff Obesity Family History Medical History Relation Name Comments Anesthesia problems Neg Hx Breast cancer Neg Hx Colon cancer Neg Hx Ovarian cancer Neg Hx Uterine cancer Neg Hx Social History Tobacco Use Types Packs/Day Years Used Date Smoking Tobacco: Former Cigarettes 1.5 12 1 983 - 1994 Passive Smoke Exposure: Never Smokeless Tobacco: Never Tobacco Cessation:Counseling Given: Not Answered [facility] Utilities Answer Date Recorded In the past 12 months has [employer], gas, oil, or water [employer] threatened to shut off services in your [...] week 04/13/2024 How often do you attend [facility] or buddhist services? Never 04/13/2024 Do you belong to any clubs o r organizations such as confucianist groups, unions, fraternal or athletic groups, or [...] any time in the past 12 m [facility], were you homeless or living in a retirement (including now)? No 04/13/2024 Personal Safety Answer Date Recorded Have you ever been in or are you currently in a harmful physical or emotional relationship or is someone making you feel afraid or unsafe? Denies 04/12/2024 Comments No Sex and Gender Information Value Date Recorded Sex Assigned at Not on file Legal Sex Female 9:[address] JUSTICE Gender Identity Not on file Sexual Orientation Not on file Obstetrics History Para Term AB IAB SAB Ectopic Multiple Livin g Live Births 0 0 0 0 0 0 0 0 0 0 0 Last Filed Vital Signs Vital Sign Reading Time Taken Comments Blood Pressure 105/73 11/24/2024 4:[address] JUSTICE Pulse 79 04/15/2024 3:05 PM CDT Temperature 36.6 ??C (97.9 ??F) 04/15/2024 3:05 PM CD T Respiratory Rate 16 04/15/2024 3:05 PM CDT Oxygen Saturation 99% 04/15/2024 3:05 PM CDT Inhaled Oxygen Concentration - - Weight 95.3 kg (210 lb) 11/24/2024 4:[address] JUSTICE Height 167.6 cm (5' 6 ) 11/24/2024 4:[address] JUSTICE Body Mass Index 33.89 11/24/2024 4:[address] JUSTICE Plan of Treatment Health Maintenance Due Date Last Done Comments Colon Cancer Screening-Colonoscopy 1967 Depression Screening 1967 Hepatitis C Screening 1967 DTaP/Tdap/Td Vaccine (1 - Tdap) 1978 Hepatitis B Screening 1985 Zoster Vaccine (3 of 3) 11/26/2018 10/01/2018, 07/28 Influenza Vaccine (#1) 2024 9, 07/26/2019, 07/09/2018, Additional history exists Regular Well Visit/Exam 18-64 10/05/2025 10/05/2024, 12/23/2019 Breast Cancer Screening-Mammogram 11/24/2025 11/24/2024 Pneumococcal vaccine <65 Aged Out 06/17/2017 No longer eligible based on patient's age to complete this topic Medical Devices Implanted Type Area Mate Relief Device Identifier Shelf Expiration Date Model / Serial / Lot Metal Bilateral: Foot [employer] Arthrex 24mm Modular Shoulder +4mm Baseplate Glenoid Sterile Qf-8770-98-4 - [id number] Implanted:Qty: 1 on 04/12/2024 by Malik Leavitt MD at Right: Shoulder [employer] [id number] 11/02/2028 AR-9560-2 4-4 / / [id number] [employer] [facility] Shoulder 8 Stem Humeral Ar-9501-08s - [id number] Implanted:Qty: 1 on 04/12/2024 by Malik Leavitt MD at Right: Shoulder [employer] [id number] 04/02/2028 AR-9501-0 8S / / [id number] [employer] Arthrex 25mm Central Modular Shoulder Screw Baseplate Sterile Ar-9561-25s - [id number] Implanted:Qty: 1 on 04/12/2024 by Malik Leavitt MD at Right: Shoulder [employer] [id number] 11/02/2027 AR-9561-2 5S / / [id number] [employer] 36mm 24 Baseplate Taper Sphere Glenoid Os-[id number] - [id number] Implanted:Qty: 1 on 04/12/2024 by Malik Leavitt MD at Right: Shoulder [employer] [id number] 06/02/2028 AR-9564-2 436 / / [id number] [employer] 4.5mm 32mm Peripheral Screw Bone Sterile Uw-9665-33zn - [id number] Implanted:Qty: 1 on 04/12/2024 by Malik Leavitt MD at Right: Shoulder [employer] [id number] 09/02/2028 AR-9562-3 2NL / / [id number] [employer] 4.5mm 32mm Peripheral Screw Bone Sterile Jc-6312-66bn - [id number] Implanted:Qty: 1 on 04/12/2024 by Malik Leavitt MD at Right: Shoulder [employer] [id number] 09/02/2028 AR-9562-3 2NL / / [id number] [employer] Screw Glenoid Locking Reverse Univers Revers 5.5x20mm Titanium Ar-9563-20 - [id number] Implanted:Qty: 1 on 04/12/2024 by Malik Leavitt MD at Right: Shoulder [employer] [id number] 11/02/2028 AR-9563-2 0 / / [id number] [employer] Screw Glenoid Locking Reverse Univers Revers 5.5x20mm Titanium Ar-9563-20 - [id number] Implanted:Qty: 1 on 04/12/2024 by Malik Leavitt MD at Right: Shoulder [employer] [id number] 11/02/2028 AR-9563-2 0 / / [id number] [employer] Arthrex Univers Revers 36mm Suture Cup Humeral Sterile Latex Free Ww-5169q-[id number] - [id number] Implanted:Qty: 1 on 04/12/2024 by Malik Leavitt MD at Right: Shoulder [employer] [id number] 11/02/2028 AR-9502F- 36CPC / / [id number] [employer] Univers Revers 36mm Shoulder +3mm Small Insert Humeral Sterile Ar-9503s-03 - [id number] Implanted:Qty: 1 on 04/12/2024 by Malik Leavitt MD at Right: Shoulder [employer] [id number] 09/02/2028 AR-9503S- 03 / / [id number] Procedures Procedure Name Priority Date/Time Associated Diagnosis Comments SCREENING MAMMOGRAM Schedule Routine, Read Routine (OP Routine) 11/24/2024 7:[address] JUSTICE SCAN - RADIOLOGY/IMAGING 11/04/2024 8:[address] JUSTICE POCT URINALYSIS DIPSTICK Routine 10/28/2024 2:[address] JUSTICE Mixed stress and urge urinary incontinence URODYNAMICS 10/28/2024 1:[address] JUSTICE SCAN - RADIOLOGY/IMAGING 10/15/2024 11:[address] JUSTICE from Last 3 Months Results * Screening Mammogram (11/24/2024 7:[address] JUSTICE) Anatomical Region Laterality Modality Breast N/A Mammography us Historical Provider MD IMG MAMMO PROCEDURES Vanessa l Result * SCAN - RADIOLOGY/IMAGING (11/04/2024 8:[address] JUSTICE) Anatomical Region Laterality Modality Other Laisha Coreas MD Final Resu lt * POCT urinalysis dipstick (10/28/2024 2:[address] JUSTICE) Color, Urine, POC Yellow Clarity, ur, POC Clear Clear Glucose, ur, POC Negative Negative MG/DL Bilirubin, ur, POC Negative Negative, Small, Moderate, Large Ketones, ur, POC Negative Negative Specific [place], POC 1.020 1.003 - 1.030 Blood, ur, POC Negative Negative pH, ur, POC 5.0 5.0 - 8.0 Protein, ur, POC Negative Negative Urobilinogen, urine, POC 0.2 0.2 - 1.0 mg/dL Nitrite, ur, POC Negative Negative Leukocytes, ur, POC Negative Negative Lot Number [id number] Urine 10/28/2024 2:[address] JUSTICE Kelsey Lim MD POINT OF CARE TEST ORDERA BLES Final Result * Urodynamics (10/28/2024 1:[address] JUSTICE) Kelsey Lim MD PROCEDURE ORDERABLES F inal Result * SCAN - RADIOLOGY/IMAGING (10/15/2024 11:[address] JUSTICE) Anatomical Region Laterality Modality Other Laisha Coreas MD Final Resu lt from Last 3 Months Insurance IDPA IDPA [facility] MEDICARE O [facility] MEDICARE O IDPA Advance Directives For more information, please contact: [phone] * Full Code (Latest Code Status on File) Date Activated Date Inactivated Comments 04/12/2024 5:42 PM 04/16/2024 12:17 AM Care Teams [employer] Supervisor Relationship Specialty Start Date End Date Kaycee Marie MD PCP - General Family Medicine 01/30/24
--- OUTSIDE RECORDS SUMMARY | 2024-12-03 02:36 | XMS_ITS | Patient Health Summary ---
Author Organization [facility] Address [facility] [place] [address] Care Team Providers Care Manager Urgent Care Name Role Phone Kaycee Marie MD Primary Care Provider [phone] Note from [facility],non-owned Affiliates and Associated Physician Practices is amultiple site organization consisting of ambulatory clinics and hospital sitesin [place], [place], [place] and [place]. This disclosure is being madepursuant to the Care Everywhere program and may not contain all information available regarding this patient. Last updated 18.[facility] Allergies No known active allergies Medications * Be aware that medications may not be up to date on this document. Alwaysverify current medications with the patient. * buPROPion SR 12hr (ZYBAN) 150 MG tablet Take 150 mg by mouth 2 times daily * ARIPiprazole (ABILIFY) 10 MG tablet Take 10 mg by mouth once daily * ibuprofen (MOTRIN) 800 MG tablet(Started 09/24/2019) Take 1 tablet by mouth every 6 hours as needed for Pain * TERBINAFINE HCL PO * Vit-Fe Fumarate-FA (M-VIT PO) * buPROPion SR 12hr (WELLBUTRIN SR) 150 MG tablet Take 150 mg by mouth once daily * meloxicam (MOBIC) 7.5 MG tablet Take 7.5 mg by mouth once daily * traMADol (ULTRAM) 50 MG tablet(Started 10/18/2021) Take 1 (one) tablet by mouth every 4 hours as needed for Pain * acetaminophen (TYLENOL) 500 MG tablet(Started 10/18/2021) Take 1 (one) tablet by mouth every 4 hours as needed for Fever or Pain Maximum allowable Acetaminophen amount = 4 Grams (4000 mg) / 24 hours. Active Problems Problem Noted Date Diagnosed Date Right foot pain 12/05/2017 Social History Tobacco Use Types Packs/Day Years Used Date Smoking Tobacco: Former Cigarettes 1 1994 Smokeless Tobacco: Never Alcohol Use Standard Drinks/Week Comments Yes 0 (1 standard drink = 0.6 oz pur e alcohol) seldom AUDIT-C Answer Date Recorded Q1: How often do you have a drink containing alc ohol? Never 10/18/2021 Average Number of Drinks Not on file 021 Q3: How often do you have si x or more drinks on one occasion? Never 10/18/2021 Sex and Gender Information Value Date Recorded Sex Assigned at Not on file Gender Identity Not on file Sexual Orientation Not on file Last Filed Vital Signs Vital Sign Reading Time Taken Comments Blood Pressure 119/82 10/18/2021 9:55 AM CLOSING MACHINE OPERATOR Pulse 73 10/18/2021 9:55 AM CLOSING MACHINE OPERATOR Temperature 36.2 ??C (97.1 ??F) 10/18/2021 6:15 AM CS T Respiratory Rate 12 10/18/2021 9:55 AM CLOSING MACHINE OPERATOR Oxygen Saturation 97% 10/18/2021 10:05 AM CLOSING MACHINE OPERATOR Inhaled Oxygen Concentration - - Weight 97.1 kg (214 lb) 10/18/2021 6:15 AM CLOSING MACHINE OPERATOR Height 170.2 cm (5' 7 ) 10/11/2021 1:09 PM CLOSING MACHINE OPERATOR Body Mass Index 33.52 10/11/2021 1:09 PM CLOSING MACHINE OPERATOR Medical Devices Implanted Type Area Zigzag Stitcher Device Identifier Shelf Expiration Date Model / Serial / Lot Vtoss Bone Graft Implanted:Qty: 1 on 12/05/2017 by George Sanchez DPM at [facility] Right: Foot [id number] / / [id number] Stpl Bone [id number] 3mm Easyclip Implanted:Qty: 1 on 12/05/2017 by George Sanchez DPM at [facility] Right: Ankle [employer] 06/03/2020 [id number] / / [id number] 7.0mm / 70 Mm Headless Compression Screw Implanted:Qty: 1 on 12/05/2017 by Goerge Sanchez DPM at [facility] Right: Ankle [id number] / / 50 Mm Screw Implanted:Qty: 1 on 12/05/2017 by George Sanchez DPM at [facility] Right: Ankle [id number] / / Ti Asanis Iii Washer 5.0 Mm Implanted:Qty: 1 on 12/05/2017 by George Sanchez DPM at [facility] Right: Ankle [id number] / / Screw 3mm 16mm Chaitanya Rvrs Cut Flut Slf Cut Implanted:Qty: 2 on 09/24/2019 at [facility] Left: Foot [employer] [id number] / / Graft Bone Alfs + Dbm 1cc Algrf Pst Implanted:Qty: 1 on 10/18/2021 by George Sanchez DPM at [facility] Right: Foot [employer] 05/30/2022 [id number] / / [id number] Wire K .045in 6in 2 End Troc Pnt Smth Ss Implanted:Qty: 4 on 10/18/2021 by George Sanchez DPM at [facility] Right: Foot [employer] [id number] / / Explanted Type Area Zigzag Stitcher Device Identifier Shelf Expiration Date Model / Serial / Lot Pin Fx 2.5mm Smth 100mm Orth Stnm Ss Ns Explanted:Qty: 2 on 12/05/2017 at [facility] Right: Ankle [employer] [id number] / / Gw Orth 2mm 150mm Unthread Fixos Explanted:Qty: 2 on 12/05/2017 at [facility] Right: Ankle [employer] [id number] / / Gw Orth 3.2mm 150mm Unthread Explanted:Qty: 1 on 12/05/2017 at [facility] Right: Ankle [employer] [id number] / / Wire K 1.2mm 100mm 3mm Asns Chaitanya Screw Fx Explanted:Qty: 2 on 09/24/2019 at [facility] Left: Foot [employer] [id number] / / Procedures * XR SHOULDER RIGHT 2VW OR MORE(Performed 07/13/2024) Performed for Right shoulder pain, unspecified chronicity * XR SHOULDER RIGHT 2VW OR MORE(Performed 06/01/2024) Performed for Right shoulder pain, unspecified chronicity * XR SHOULDER RIGHT 2VW OR MORE(Performed 05/04/2024) Performed for Right shoulder pain, unspecified chronicity * XR SHOULDER RIGHT 2VW OR MORE(Performed 12/03/2022) Performed for Right shoulder pain, unspecified chronicity * FL ANABELA SURGERY(Performed 10/18/2021) Performed for Right foot pain * LARYNGEAL MASK AIRWAY(Performed 10/18/2021) * RI TREAT METATARSAL FRACTURE(Performed 10/18/2021) Performed for Closed fracture of third metatarsal bone of right foot, physeal involvement unspecified, initial encounter, Closed fracture of fourth metatarsal bone of right foot, physeal involvement unspecified, initial encounter, Foot pain, right * PERCUTANEOUS FIXATION FOOT (TARSAL-METATARSAL/CALCANEAL)(Performed 10/18/2021) Performed for Closed fracture of third metatarsal bone of right foot, physeal involvement unspecified, initial encounter, Closed fracture of fourth metatarsal bone of right foot, physeal involvement unspecified, initial encounter, Foot pain, right * FL ANABELA SURGERY LESS 60 MIN(Performed 09/24/2019) Performed for Pain * REVISION NERVE FOOT(Performed 09/24/2019) Performed for Acquired hallux valgus of left foot, Nerve entrapment of lower limb, left, Left foot pain * BUNIONECTOMY (HALLUX VALGUS CORRECTION) BILATERAL(Performed 09/24/2019) Performed for Acquired hallux valgus of left foot, Nerve entrapment of lower limb, left, Left foot pain * IMAGING/RADIOLOGY/XRAY RESULTS ORDER(Performed 12/19/2017) * BASIC METABOLIC PANEL (CALCIUM TOTAL)(Performed 12/14/2017) * BASIC METABOLIC PANEL (CALCIUM TOTAL)(Performed 12/10/2017) * CBC W AUTO DIFFERENTIAL(Performed 12/10/2017) * BASIC METABOLIC PANEL (CALCIUM TOTAL)(Performed 12/09/2017) * CBC W AUTO DIFFERENTIAL(Performed 12/09/2017) * BASIC METABOLIC PANEL (CALCIUM TOTAL)(Performed 12/08/2017) * CBC W AUTO DIFFERENTIAL(Performed 12/08/2017) * URINALYSIS REFLEX MICROSCOPIC REFLEX CULTURE(Performed 12/07/2017) * COMPREHENSIVE METABOLIC PANEL(Performed 12/06/2017) * CBC W AUTO DIFFERENTIAL(Performed 12/06/2017) * XR FOOT RIGHT 3VW OR MORE(Performed 12/05/2017) Performed for Right foot pain * LARYNGEAL MASK AIRWAY(Performed 12/05/2017) * FL ANABELA SURGERY 2 HRS PLUS(Performed 12/05/2017) Performed for Right foot pain * LENGTHENING OR SHORTENING TENDON(S) LEG/ANKLE(Performed 12/05/2017) * PERIPHERAL BLOCK(Performed 12/05/2017) * PERIPHERAL BLOCK(Performed 12/05/2017) Results * XR Shoulder Right 2Vw or More (07/13/2024 9:11 AM CDT) Only the most recent of4 resultswithin the time period is included. Anatomical Region Laterality Modality Upper Extremity Radiographic Trinidad ging 07/13/2024 3:41 PM CDT Narrative 07/13/2024 3:41 PM CDT PROCEDURE(s): XR SHOULDER RIGHT 2VW OR MORE DATE AND TIME OF EXAM(s): 07/13/2024 9:11 AM INDICATION(s): M25.511: Pain in right shoulder. COMPARISON(s): Right shoulder radiographs dated 06/01/2024. 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 No evidence of hardware failure, acute fracture, or dislocation is seen. The soft tissues are grossly unremarkable. > Interpreting Provider: Christiano Moon MD on 07/13/2024 3:41 PM Procedure Note Christiano Moon MD - 07/13/2024 PROCEDURE(s): XR SHOULDER RIGHT 2VW OR MORE DATE AND TIME OF EXAM(s): 07/13/2024 9:11 AM INDICATION(s): M25.511: Pain in right shoulder. COMPARISON(s): Right shoulder radiographs dated 06/01/2024. 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 No evidence of hardware failure, acute fracture, or dislocation is seen. The softtissues are grossly unremarkable. > Interpreting Provider: Christiano Moon MD on 07/13/2024 3:41 PM Malik Leavitt MD DIAGNOSTIC IMAGING O RDERABLES * FL ANABELA SURGERY (10/18/2021 9:04 AM CLOSING MACHINE OPERATOR) Narrative [facility] - 10/18/2021 9:07 AM CLOSING MACHINE OPERATOR For details of this study, please see the providers note. George Sanchez [facility] FLUOROSCOPY ORDERABLES [facility] [address] [place] [address] * LARYNGEAL MASK AIRWAY (10/18/2021 7:25 AM CLOSING MACHINE OPERATOR) Narrative Vannesa Hernandes APRN-CRNA - 10/18/2021 7:25 AM CLOSING MACHINE OPERATOR Vannesa Hernandes APRN-CRNA ? 10/18/2021 ??7:26 AM LMA Placement Procedure/LDA Note: Patient Location: OR. Procedure: LMA. Pretreatment: 100% O2 Induction: standard IV Patient position: supine. Mask Ventilation: not attempted Type: ??gel LMA Size: ??4 Placement verified by: bilateral breath sounds and CO2 monitor Dentition unchanged? ??Yes Staff Section ? Anesthesia Provider: Vannesa Hernandes APRN-CRNA, Performed the procedure ? Provider #1: Alfred Sinclair, . Alfred Sinclair DO GENERAL ANESTHESIA O RDERABLES * FL ANABELA SURGERY LESS 60 MIN (09/24/2019 8:30 AM CLOSING MACHINE OPERATOR) Anatomical Region Laterality Modality Radiographic Trinidad ging 09/24/2019 2:17 PM CLOSING MACHINE OPERATOR Narrative 09/24/2019 2:13 PM CLOSING MACHINE OPERATOR Fluoroscopy was rendered. No radiologist was present. Fluoroscopy time was 2 seconds. 5 images were submitted. Reading Radiologist: Amara Barrios MD on 09/24/2019 at 2:18 PM Procedure Note Amara Barrios MD - 09/24/2019 Fluoroscopy was rendered. No radiologist was present. Fluoroscopy time was 2 seconds. 5 images were submitted. Reading Radiologist: Amara Barrios MD on 09/24/2019 at 2:18 PM George Ni Daniel DPM FLUOROSCOPY ORDERABLES * IMAGING/RADIOLOGY/XRAY RESULTS ORDER (12/19/2017 2:14 AM CLOSING MACHINE OPERATOR) Anatomical Region Laterality Modality Other Narrative 12/19/2017 2:14 AM CLOSING MACHINE OPERATOR Ordered by an unspecified provider. Scanned Document IMAGING * (ABNORMAL) BASIC METABOLIC PANEL (CALCIUM TOTAL) (12/14/2017 5:06 AM CLOSING MACHINE OPERATOR) Only the most recent of4 resultswithin the time period is included. Glucose 79 74 - 106 mg/dL 12/14/2017 5:31 AM [facility] Sodium 140 136 - 145 mmol/L 12/14/2017 5:31 AM [facility] Potassium 3.8 3.5 - 5.1 mmol/L 12/14/2017 5:31 AM [facility] Chloride 105 98 - 107 mmol/L 12/14/2017 5:31 AM [facility] CO2 28 22 - 31 mmol/L 12/14/2017 5:31 AM [facility] Calcium 9.5 8.5 - 10.1 mg/dL 12/14/2017 5:31 AM [facility] Anion Gap 7(L) 8 - 16 mmol/L 12/14/2017 5:31 AM [facility] BUN 10 7 - 21 mg/dL 12/14/2017 5:31 AM [facility] Creatinine 0.65 0.50 - 1.30 mg/dL 12/14/2017 5:31 AM [facility] eGFR by MDRD >60 >60 mL/min/1.7 3m2 12/14/2017 5:31 AM [facility] eGFR by MDRD >60 >60 mL/min/1.7 3m2 12/14/2017 5:31 AM [facility] Blood BLOOD SPECIMEN / Unknown Venipuncture / Unknown 12/14/2017 5:06 AM CLOSING MACHINE OPERATOR 12/14/2017 5:10 AM CLOSING MACHINE OPERATOR Osvaldo Hawkins MD LAB - CHEMISTRY [facility] [address] [place] [id number] * (ABNORMAL) CBC W AUTO DIFFERENTIAL (12/10/2017 4:37 AM CLOSING MACHINE OPERATOR) Only the most recent of4 resultswithin the time period is included. WBC 4.5 4.4 - 10.7 x10E9/L 12/10/2017 5:50 AM CLOSING MACHINE OPERATOR [facility] WBC Corrected x10E9/L 12/10/2017 5:50 AM [facility] RBC 3.47(L) 3.80 - 5.20 x10E12/L 12/10/2017 5:50 AM [facility] Hemoglobin 10.2(L) 12.0 - 15.6 gm/dL 12/10/2017 5:50 AM [facility] Hematocrit 31.4(L) 35.9 - 45.5 % 12/10/2017 5:50 AM [facility] MCV 90.5 80.7 - 98.3 fl 12/10/2017 5:50 AM [facility] MCH 29.4 26.7 - 34.0 pg 12/10/2017 5:50 AM [facility] MCHC 32.5 30.8 - 35.9 gm/dL 12/10/2017 5:50 AM [facility] Platelet Count 360 153 - 416 x10E9/L 12/10/2017 5:50 AM [facility] RDW-CV 11.1(L) 12.1 - 14.9 % 12/10/2017 5:50 AM [facility] MPV 9.4 9.4 - 12.9 fl 12/10/2017 5:50 AM [facility] Neutrophils % 61.2 44.0 - 73.0 % 12/10/2017 5:50 AM CLOSING MACHINE OPERATOR [facility] Lymphocytes % 25.6 20.0 - 43.0 % 12/10/2017 5:50 AM [facility] Monocytes % 6.6 5.0 - 13.0 % 12/10/2017 5:50 AM [facility] Eosinophils % 5.9 0.0 - 6.0 % 12/10/2017 5:50 AM [facility] Basophils % 0.7 0.0 - 2.0 % 12/10/2017 5:50 AM [facility] Immature Granulocytes 0.0 0 - 1 % 12/10/2017 5:50 AM [facility] Neutrophil Absolute 2.78 2.01 - 7.14 x10E9/L 12/10/2017 5:50 AM [facility] Lymphocytes Absolute 1.16 1.07 - 3.94 x10E9/L 12/10/2017 5:50 AM [facility] Monocytes Absolute 0.30 0.26 - 1.07 x10E9/L 12/10/2017 5:50 AM [facility] Eosinophils Absolute 0.27 0 - 0.47 x10E9/L 12/10/2017 5:50 AM [facility] Basophils Absolute 0.03 0 - 0.08 x10E9/L 12/10/2017 5:50 AM [facility] Immature Granulocytes Absolute 0.00 0.00 - 0.06 x10E9/L 12/10/2017 5:50 AM [facility] nRBC Auto 0 /100 WBC 12/10/2017 5:50 AM [facility] Blood BLOOD SPECIMEN / Unknown Venipuncture / Unknown 12/10/2017 4:37 AM CLOSING MACHINE OPERATOR 12/10/2017 5:27 AM [facility] Jesse Dunlap MD LAB - HEMATOLOGY ORD ERABLES [facility] [address] [place] [id number] * URINALYSIS ROUTINE W/REFLEX TO CULTURE (12/07/2017 6:32 AM [facility]) Color UA Straw Straw, Yellow 12/07/2017 7:08 AM [facility] Clarity UA Clear Clear 12/07/2017 7:08 AM [facility] Glucose UA Negative Negative 12/07/2017 7:08 AM [facility] Bilirubin UA Negative Negative 12/07/2017 7:08 AM [facility] Ketone UA Negative Negative 12/07/2017 7:08 AM [facility] Specific Dumont UA 1.006 1.005 - 1.030 12/07/2017 7:08 AM [facility] Blood UA Negative Negative 12/07/2017 7:08 AM [facility] pH UA 7.0 5.0 - 8.0 pH 12/07/2017 7:08 AM [facility] Protein UA Negative Negative 12/07/2017 7:08 AM [facility] Urobilinogen UA Negative Negative mg/dL 12/07/2017 7:08 AM [facility] Nitrite UA Negative Negative 12/07/2017 7:08 AM [facility] Leukocyte UA Negative Negative 12/07/2017 7:08 AM [facility] Urine Microscopy Urine microscopy not indicated 12/07/2017 7:08 AM [facility] Reflex Status Culture not indicated 12/07/2017 7:08 AM [facility] Urine URINE SPECIMEN OBTAINED BY CLEAN CATCH PROCEDURE / Unknown Collection / Unknown 12/07/2017 6:32 AM CLOSING MACHINE OPERATOR 12/07/2017 6:34 AM [facility] Narrative [facility] - 12/07/2017 7:08 AM CLOSING MACHINE OPERATOR Lee Rueda LEAD HOUSEKEEPER-GENETIC SCIENTIST LAB - URINALYSIS ORDERABLES Performing Organization Address City/State/RUST Co de Phone Number [facility] [address] [place] [address] * (ABNORMAL) COMPREHENSIVE METABOLIC PANEL (12/06/2017 4:49 AM CLOSING MACHINE OPERATOR) Glucose 125(H) 74 - 106 mg/dL 12/06/2017 5:15 AM [facility] Sodium 137 136 - 145 mmol/L 12/06/2017 5:15 AM [facility] Potassium 3.8 3.5 - 5.1 mmol/L 12/06/2017 5:15 AM [facility] Chloride 104 98 - 107 mmol/L 12/06/2017 5:15 AM [facility] CO2 28 22 - 31 mmol/L 12/06/2017 5:15 AM [facility] Calcium 8.6 8.5 - 10.1 mg/dL 12/06/2017 5:15 AM [facility] Anion Gap 5(L) 8 - 16 mmol/L 12/06/2017 5:15 AM [facility] BUN 15 7 - 21 mg/dL 12/06/2017 5:15 AM [facility] Creatinine 0.63 0.50 - 1.30 mg/dL 12/06/2017 5:15 AM [facility] Alkaline Phosphatase 124 38 - 126 U/L 12/06/2017 5:15 AM CLOSING MACHINE OPERATOR [facility] ALT 21 13 - 61 U/L 12/06/2017 5:15 AM [facility] AST 29 5 - 40 U/L 12/06/2017 5:15 AM [facility] Protein Total 6.3(L) 6.4 - 8.2 gm/dL 12/06/2017 5:15 AM [facility] Albumin 3.3(L) 3.4 - 5.0 gm/dL 12/06/2017 5:15 AM [facility] Bilirubin Total 0.5 0.2 - 1.0 mg/dL 12/06/2017 5:15 AM [facility] eGFR by MDRD >60 >60 mL/min/1.7 3m2 12/06/2017 5:15 AM [facility] eGFR by MDRD >60 >60 mL/min/1.7 3m2 12/06/2017 5:15 AM [facility] Blood BLOOD SPECIMEN / Unknown Venipuncture / Unknown 12/06/2017 4:49 AM CLOSING MACHINE OPERATOR 12/06/2017 4:52 AM CLOSING MACHINE OPERATOR Paulino Cabezas LEAD HOUSEKEEPER-GENETIC SCIENTIST LAB - CHEMISTRY O RDERABLES [facility] [address] [place] [id number] * XR FOOT 3+ VW RIGHT IN PACU (12/05/2017 2:27 PM CLOSING MACHINE OPERATOR) Anatomical Region Laterality Modality Ankle / Foot Radiographic Trinidad ging 12/05/2017 2:34 PM CLOSING MACHINE OPERATOR Narrative 12/05/2017 2:34 PM CLOSING MACHINE OPERATOR Right Foot 3 Views INDICATION: Right foot fusion aftercare FINDINGS: ??No prior. 3 views show subtalar fusion and talonavicular fusion. No hardware failure. Procedure Note Partha Bedoya MD - 12/05/2017 Right Foot 3 Views INDICATION: Right foot fusion aftercare FINDINGS: No prior. 3 views show subtalar fusion and talonavicular fusion. No hardware failure. Parris Cadet DPM DIAGNOSTIC IMAGIN G ORDERABLES * FL ANABELA SURGERY 2 HRS PLUS (12/05/2017 1:26 PM CLOSING MACHINE OPERATOR) Anatomical Region Laterality Modality Radiographic Trinidad ging 12/05/2017 1:31 PM CLOSING MACHINE OPERATOR Narrative 12/05/2017 1:31 PM CLOSING MACHINE OPERATOR FLUOROSCOPY: Less than 1 hour ??of fluoroscopy was utilized during a podiatric surgery. No radiologist was present. Please refer to surgical report for details. 42 seconds fluoroscopy were provided Procedure Note Azul Hernandez MD - 12/05/2017 FLUOROSCOPY: Less than 1 hour of fluoroscopy was utilized during a podiatric surgery. No radiologist was present. Please refer to surgical report for details. 42 seconds fluoroscopy were provided George Sanchez DPM FLUOROSCOPY ORDERABLES Care Teams Manager Urgent Care Relationship Specialty Start Date End Date Kaycee Marie MD [address] [place] [address] PCP - General Family Medicine 09/17/19
--- OUTSIDE RECORDS SUMMARY | 2024-12-03 02:36 | XMS_ITS | Clinical Summary ---
Author Organization [facility] [employer] Address [facility] [facility] [place] [address] Care Team Providers Care Deputy Assessor Name Role Phone Kaycee Marie MD Primary Care Provider [phone] Source Comments [facility] [employer],non-[facility] Affiliates and Associated Physician Practices is amultiple site organization consisting of ambulatory clinics and hospital sitesin [place], [place]. This disclosure is being madepursuant to the Care Everywhere program and may not contain all information available regarding this patient. Last updated 18.[facility] [employer] Allergies No known active allergies Medications * Be aware that medications may not be up to date on this document. Alwaysverify current medications with the patient. Medication Sig Dispensed Refills Start Date End Date Status buPROPion SR 12hr (ZYBAN) 150 MG tablet Take 150 mg by mouth 2 times daily Active ARIPiprazole (ABILIFY) 10 MG tablet Take 10 mg by mouth once daily Active ibuprofen (MOTRIN) 800 MG tablet Take 1 tablet by mouth every 6 hours as needed for Pain 60 tablet 09/24/2019 Active Additional Information Patient not taking.Reported on 10/11/2021 TERBINAFINE HCL PO Active Vit-Fe Fumarate-FA (M-VIT PO) Active buPROPion SR 12hr (WELLBUTRIN SR) 150 MG tablet Take 150 mg by mouth once daily Active meloxicam (MOBIC) 7.5 MG tablet Take 7.5 mg by mouth once daily Active traMADol (ULTRAM) 50 MG tablet Take 1 (one) tablet by mouth every 4 hours as needed for Pain 40 tablet 10/18/2021 Active acetaminophen (TYLENOL) 500 MG tablet Take 1 (one) tablet by mouth every 4 hours as needed for Fever or Pain Maximum allowable Acetaminophen amount = 4 Grams (4000 mg) / 24 hours. 50 tablet 10/18/2021 Active Active Problems Problem Noted Date Diagnosed Date Right foot pain 12/05/2017 Social History Tobacco Use Types Packs/Day Years Used Date Smoking Tobacco: Former Cigarettes 1 - 1994 Smokeless Tobacco: Never Alcohol Use Standard [...] Comments Blood Pressure 119/82 10/18/2021 9:55 AM [facility] Pulse 73 10/18/2021 9:55 AM [facility] Temperature 36.2 ??C (97.1 ??F) 10/18/2021 6:15 AM CS T Respiratory Rate 12 10/18/2021 9:55 AM [facility] Oxygen Saturation 97% 10/18/2021 10:05 AM [facility] Inhaled Oxygen Concentration - - Weight 97.1 kg (214 lb) 10/18/2021 6:15 AM [facility] Height 170.2 cm (5' 7 ) 10/11/2021 1:09 PM [facility] Body Mass Index 33.52 10/11/2021 1:09 PM [facility] Plan of Treatment Health Maintenance Due Date Last Done Comments COLOGUARD (AGES 45-75) - COLON CA SCREENING 1967 COLON MONITORING 1967 COLONOSCOPY - COLON CA SCREENING 1967 CT COLONOGRAPHY - COLON CA SCREENING 1967 Colorectal Cancer Screening 1967 FIT - COLON CA SCREENING 1967 FLEX SIG - COLON CA SCREENING 1967 LIPID TESTING 1967 MAMMOGRAM 1967 PAP SMEAR 1967 HIV SCREENING 1982 HEPATITIS C SCREENING 01/23/1985 DTAP/TDAP/TD VACCINES (1 - Tdap) 1986 HEPATITIS B VACCINE (1 of 3 - 19+ 3-dose series) 1986 PNEUMOCOCCAL VACCINE 50+ (1 of 1 - PCV) 2017 ZOSTER VACCINE (1 of 2) 2017 SCREENING FOR DIABETES 12/14/2020 8, 12/10/2017, 12/09/2017, Additional history exists COVID-19 VACCINE (3 - 2023- season) 2024 09/29/2021, 01/09/2021 INFLUENZA VACCINE (#1) 2024 , 07/11/2020, 07/26/2019, Additional history exists DEPRESSION SCREENING 11/03/2024 HIB VACCINE Aged Out No longer eligi ble based on patient's age to complete this topic HPV VACCINE Aged Out No longer eligi ble based on patient's age to complete this topic MENINGOCOCCAL (Group B) VACCINE Aged Out No longer eligible based on patient's age to complete this topic MENINGOCOCCAL VACCINE Aged Out No avril shanita eligible based on patient's age to complete this topic PNEUMOCOCCAL VACCINE Aged Out No long er eligible based on patient's age to complete this topic Medical Devices Implanted Type Area Tetryl Nitrator Operator Device Identifier Shelf Expiration Date Model / Serial / Lot Vtoss Bone Graft Implanted:Qty: 1 on 12/05/2017 by George Sanchez DPM at [facility] Right: Foot [id number] / / [id number] Stpl Bone [id number] 3mm Easyclip Implanted:Qty: 1 on 12/05/2017 by George Sanchez DPM at [facility] Right: Ankle [employer] 06/03/2020 [id number] / / [id number] 7.0mm / 70 Mm Headless Compression Screw Implanted:Qty: 1 on 12/05/2017 by George Sanchez DPM at [facility] Right: Ankle [id number] / / 50 Mm Screw Implanted:Qty: 1 on 12/05/2017 by George Sanchez DPM at [facility] Right: Ankle [id number] / / Ti Asanis Iii Washer 5.0 Mm Implanted:Qty: 1 on 12/05/2017 by George Sanchez DPM at [facility] Right: Ankle [id number] / / Screw 3mm 16mm Chaitanya Rvrs Cut Flut Slf Cut Implanted:Qty: 2 on 09/24/2019 at [facility] Left: Foot [employer] [id number] / / Graft Bone Alfs + Dbm 1cc Algrf Pst Implanted:Qty: 1 on 10/18/2021 by George Sanchez DPM at [facility] Right: Foot [employer] 05/30/2022 [id number] / / [id number] Wire K .045in 6in 2 End Troc Pnt Smth Ss Implanted:Qty: 4 on 10/18/2021 by George Sanchez DPM at [facility] Right: Foot [employer] [id number] / / Explanted Type Area Tetryl Nitrator Operator Device Identifier Shelf Expiration Date Model / Serial / Lot Pin Fx 2.5mm Smth 100mm Orth Stnm Ss Ns Explanted:Qty: 2 on 12/05/2017 at [facility] Right: Ankle [employer] [id number] / / Gw Orth 2mm 150mm Unthread Fixos Explanted:Qty: 2 on 12/05/2017 at [facility] Right: Ankle [employer] [id number] / / Gw Orth 3.2mm 150mm Unthread Explanted:Qty: 1 on 12/05/2017 at [facility] Right: Ankle [employer] [id number] / / Wire K 1.2mm 100mm 3mm Asns Chaitanya Screw Fx Explanted:Qty: 2 on 09/24/2019 at [facility] Left: Foot [employer] [id number] / / Procedures Procedure Name Priority Date/Time Associated Diagnosis Comments BASIC METABOLIC PANEL (CALCIUM TOTAL) AM Draw 12/14/2017 5:06 AM [facility] from Last 3 Months or Most Recently Relevant to Health Maintenance Results * (ABNORMAL) BASIC METABOLIC PANEL (CALCIUM TOTAL) (12/14/2017 5:06 AM [facility]) Glucose 79 74 - 106 mg/dL 12/14/2017 5:31 AM [facility] Sodium 140 136 - 145 mmol/L 12/14/2017 5:31 AM [facility] Potassium 3.8 3.5 - 5.1 mmol/L 12/14/2017 5:31 AM [facility] Chloride 105 98 - 107 mmol/L 12/14/2017 5:31 AM [facility] CO2 28 22 - 31 mmol/L 12/14/2017 5:31 AM [facility] Calcium 9.5 8.5 - 10.1 mg/dL 12/14/2017 5:31 AM [facility] Anion Gap 7(L) 8 - 16 mmol/L 12/14/2017 5:31 AM [facility] BUN 10 7 - 21 mg/dL 12/14/2017 5:31 AM [facility] Creatinine 0.65 0.50 - 1.30 mg/dL 12/14/2017 5:31 AM [facility] eGFR by MDRD >60 >60 mL/min/1.7 3m2 12/14/2017 5:31 AM [facility] eGFR by MDRD >60 >60 mL/min/1.7 3m2 12/14/2017 5:31 AM [facility] Blood BLOOD SPECIMEN / Unknown Venipuncture / Unknown 12/14/2017 5:06 AM [facility] 12/14/2017 5:10 AM [facility] Osvaldo Hawkins MD LAB - CHEMISTRY SRIDHAR MUÑOZ [facility] [address] [place] [address] from Last 3 Months or Most Recently Relevant to Health Maintenance Advance Directives * Full Code (Latest Code Status on File) Date Activated Date Inactivated Comments 12/05/2017 2:29 PM 12/15/2017 2:21 PM Care Teams Deputy Assessor Relationship Specialty Start Date End Date Kaycee Marie MD [address] [place] [address] PCP - General Family Medicine 09/17/19
--- OUTSIDE RECORDS SUMMARY | 2024-12-03 02:36 | XMS_ITS | Continuity of Care Document ---
Author Organization [facility] Address [address] [place] [address] Phone Care Team Providers Care Piano Assembler Name Role Phone Cedrick Louie MD Unavailable Unavailable Advance Directives Directive Yes / No Effective Date File Name No Information Encounters Encounter Description Practice Location Reason(s) For Visit Diagnoses Date Provider Providers Copied on Encounter [facility], [address], [place], [place], [id number], tel:[phone] [facility] No Information Liban Philip. [address] , [place], [place], [id number], [place]. tel:[phone] Referring Provider: Jin Gomez, [address], [place], [address]. tel:[phone] Family History Family Member Type Diagnosis Age At Onset No Information Payers Payer name Insurance type Covered libertarian ID Authoriza tion(s) MEDICARE [id number] Social History Type Description Quantity Date Captured [...]
--- OUTSIDE RECORDS SUMMARY | 2024-12-03 02:36 | XMS_ITS | Continuity of Care Document ---
Author Organization [facility] Address [address] [place] [address] Phone Care Team Providers Care Flare Stitcher Name Role Phone House THEODORA Cheryl Unavailable Unavailable Allergies, Adverse Reactions, Alerts Substance Reaction Status Criticality No Known Allergies Active No Inform ation Medications Medication Instructions Dosage Effective Dates (start - stop) Status Comments aripiprazole 2 mg tablet take 1 tablet by oral route every day 2 MG - Active bupropion HCl 75 mg tablet take 1 tablet by oral route 3 times every day 75 MG - Active meloxicam 7.5 mg tablet take 2 tablet by oral route every day 15 MG - Active Procedures Procedure Date Global/Postop followup visit Global/Postop followup visit BMI Documented Above Normal Limit F/U Pl an Doc Arc 2 0 Sling Angola Arm Sling Global/Postop followup visit Total Shoulder Replcmt Biceps Tenodesis Release shoulder joint Office/outpatient visit,est, mod 2023 Kenalog 40mg/mL Asp/Injection, Major Joint W/ Ultrasound Office/outpatient visit,est, mod 2022 Office/outpatient visit,est, mod 2022 Kenalog 10mg/mL Asp/Injection, Major Joint W/ Ultrasound Kenalog 10mg/mL Asp/Injection, Major Joint W/ Ultrasound Office/outpatient visit,est, mod 2022 Kenalog 40mg/mL Asp/Injection, Major Joint W/ Ultrasound Office/outpatient visit,new, mod 2022 Advance Directives Directive Yes / No Effective Date File Name No Information Encounters Encounter Description Practice Location Reason(s) For Visit Diagnoses Date Provider Providers Copied on Encounter [facility], [address] [place] [address], [id number], tel:[phone] [facility] Professional Building shoulder (chief complaint) Presence of right artificial shoulder joint 4 House Cheryl . [address] [place] [address], [id number] , [place]. tel:[phone] Referring Provider: Kaycee Marie, [address] [place] [address], [id number] . tel:[phone] [facility], [address] [place] [address], [id number], [place] tel:[phone] [facility] shoulder (chief complaint) Presence of right artificial shoulder joint 4 House Cheryl . [address] [place] [address], [id number] , [place]. tel:[phone] Referring Provider: Kaycee Marie, [address] [place] [address], [id number] . tel:[phone] [facility], [address] [place] [address], [id number], [place] tel:[phone] [facility] Other specified arthritis, right shoulder 4 Dagmar Gan. [address] [place] [address], [id number] , [place]. tel:[phone] [facility], [address] [place] [address], [id number], [place] tel:[phone] [facility] shoulder (chief complaint) Contracture, right shoulderComplet e rotatr-cuff tear/ruptr of r shoulder, not traumaBicipital tendinitis, right shoulderEncount er for other orthopedic aftercare 4 Anton Luna . [address] [facility], [place] [address], [place], [place], [id number] , [place]. tel:[phone] Referring Provider: Kaycee Marie, [address] [place] [address], [id number] . tel:[phone] [facility] [employer], [address], [id number], [place] tel:[phone] [facility] No Information 4 Dagmar Gan. [address] [facility], [place] [address], [place], [place], [id number] , [place]. tel:[phone] Referring Provider: Malik Morales, [address] [place] [address], [place], [address] . tel:[phone] [facility] [employer] [facility], [address] [place] [address], [id number], [place] tel:[phone] [facility] Contracture, right shoulder 4 Dagmar Gan. [address] [facility], [place] [address], [place], [place], [id number] , [place]. tel:[phone] Office/outpa tient visit,est, mod [facility] [employer], [address] [place] [address], [id number], [place] tel:[phone] [facility] [place] pain (chief complaint) Other specified arthritis, right shoulderContrac ture, right shoulderComplet e rotatr-cuff tear/ruptr of r shoulder, not traumaBicipital tendinitis, right shoulder Feb- 4 Dagmar Gan. [address] [facility], [place] [address], [place], [place], [id number] , [place]. tel:[phone] Referring Provider: Kaycee Marie, [address] [place] [address], [id number] . tel:[phone] [facility], [address], [id number], [place] tel:[phone] [facility] Other specified arthritis, right shoulder 4 Leavitt Malik. [address] [place] [address], [place], [place], [id number] , [place]. tel:[phone] Office/outpa tient visit,est, [facility], [address] [place] [address], [place], [place], [id number], [place] tel:[phone] [facility] [place] pain (chief complaint) Complete rotatr-cuff tear/ruptr of r shoulder, not traumaOther specified arthritis, right shoulderBicipit al tendinitis, right shoulder 3 Elavitt Malik. [address], [id number] , [place]. tel:[phone] Referring Provider: Kaycee Marie [address] [place] [address], [id number] . tel:[phone] Office/outpa tient visit,est, [facility], [facility] [address], [id number], [place] tel:[phone] [facility] [place] Complete rotatr-cuff tear/ruptr of r shoulder, not traumaOther specified arthritis, right shoulderBicipit al tendinitis, right shoulder 3 Leavitt Malik. [address], [id number] , [place]. tel:[phone] Referring Provider: Kaycee Marie [address] [place] [address], [address] . tel:[phone] [facility], [address], [id number], [place] tel:[phone] [facility] [place] pain (chief complaint) Complete rotatr-cuff tear/ruptr of r shoulder, not traumaBicipital tendinitis, right shoulderOther specified arthritis, right shoulder 3 Anton Luna . [address] [facility], [place] [address], [place], [place], [id number] , [place]. [phone] Referring Provider: Kaycee Marie, [address] [place] [address], [id number] . tel:[phone] Office/outpa tient visit,[facility], [address], [id number], [place] tel:[phone] [facility] right shoulder pain (chief complaint) Complete rotatr-cuff tear/ruptr of r shoulder, not traumaOther specified arthritis, right shoulderBicipit al tendinitis, right shoulder 3 Dagmar Gan. [address], [id number] , [place]. tel:[phone] Referring Provider: Kaycee Marie, [address] [place] [address], [id number] . tel:[phone] Office/outpa tient visit,[facility], [address], [id number], [place] tel:[phone] [facility] [place] pain (chief complaint) Other specified arthritis, right shoulderComplet e rotatr-cuff tear/ruptr of r shoulder, not traumaBicipital tendinitis, right shoulder 3 Dagmar Gan. [address], [id number] , [place]. tel:[phone] Referring Provider: Malik Morales, [address] [address], [place], [address] . tel:[phone] Family History Family Member Type Diagnosis Age At Onset Mother Problem (finding) Depression Mother Problem (finding) Heart Disease Payers Payer name Insurance type Covered libertarian ID Authoriza tion(s) [employer] Medicare HMO PPO Clai ms Office CI [id number] Medicaid MEDICAID Social History Type Description Quantity Date Captured Comments Alcohol Use Details Unknown Caffeine Use Details Unknown Tobacco Use Status No Information Smoking Status No Information Non-Smoking Tobacco Use Details : No Details Available : No Details Available Sex Female Vital Signs Date / Time: Height Weight BMI Pulse Rate Blood Pressure Temperature Respiratory Rate Body Surface Area Head Circumference Head Circ. Percentile Wt./David. Percentile BMI percentile Pulse Ox Inhaled Ox 9:17 AM 66.00 in 95.254 kg (210.00 lbs) 33.8 9 kg/m eter (2) 2.11 meter(2) Chief Complaint And Reason For Visit From encounter dated '07/13/2024 10:00'. shoulder (chief complaint). Description: The patient returns 3 months from the above stated procedure. The patient has done well in the interim and notes no wound or skin problems, wound drainage, new neurological complaints. They have been compliant with the prescribed weight bearing status per the patient's report. They have progressed well with prescribed physical therapy and are overall happy with their progress. They have good gains in ROM and feel ready to proceed to the final phase of strengthening. No other complaints. Reason For Referral Reason For Referral No Information Plan Of Treatment Date Type Action Status Referral Ordered: CT scan Upper Extrem W/o Contrast RT shoulder Appointment date/timeframe: 09/11/2023 ordered History Of Present Illness Encounter Date Complaint History Of Prese nt Illness shoulder The patient retu rns 3 months from the above stated procedure. The patient has done well in the interim and notes no wound or skin problems, wound drainage, new neurological complaints. They have been compliant with the prescribed weight bearing status per the patient's report. They have progressed well with prescribed physical therapy and are overall happy with their progress. They have good gains in ROM and feel ready to proceed to the final phase of strengthening. No other complaints. shoulder The patient retu rns 6 weeks from the above procedure. The patient has done well in the interim and notes no wound/skin problems, wound drainage, new neurological complaints, or abnormal swelling/calf pain. The patient notes they have been compliant with physical therapy and sling use. They are progressing well. No other complaints noted. shoulder The patient retu rns 2 weeks from the above procedure. They note no fevers, chills, night sweats, abnormal swelling or calf pain. They have been compliant with physical therapy guided rehabilitation per their report. They note appropriate use of the sling as instructed. No other immediate post operative issues are noted. right shoulder pain Cherri walden is a 59 year old female. The patient has known glenohumeral osteoarthritis and returns now in anticipation of planned shoulder arthroplasty having failed all reasonable non-operative treatments. In addition to the history today I have reviewed lab tests including: CBC, CMP, A1C. These results are compatible with proceeding to shoulder arthroplasty. She presents with pain, decreased range of motion and weakness on the right side. She states that the symptoms have been chronic non-traumatic. The symptoms occur constantly with intermittent worsening. The problem is worse. Currently the patient states that the symptoms are incapacitating. The pain is described as aching and sharp. The symptoms are aggravated by daily activities, reaching or use of the arm, moving the arm suddenly and sleeping in any position. In addition to right shoulder pain the patient is also experiencing decreased mobility and nocturnal awakening. Pertinent negatives include fever, radicular symptoms, numbness and weakness. The patient has had a previous x-ray. Prior treatments have included icing, medications, rest/activity cessation, prior injections all without adequate resolution. The patient has now failed greater than 6 months of non-operative treatment, had symptoms for greater than one year, and has daily pain limiting ADLs including sleep, self care. They are indicated for shoulder arthroplasty. right shoulder pain Cherri walden is a 58 year old female. The patient has known glenohumeral osteoarthritis and returns noting worsening of symptoms compared to their last visit. She presents with pain, decreased range of motion and weakness on the right side. She states that the symptoms have been chronic non-traumatic. The symptoms occur constantly. The problem is worse. Currently the patient states that the symptoms are incapacitating. The pain is described as aching and sharp. The symptoms occur with activity. The symptoms are aggravated by daily activities and moving the arm suddenly. In addition to right shoulder pain the patient is also experiencing decreased mobility and nocturnal awakening. Pertinent negatives include fever, radicular symptoms, numbness and weakness. The patient has had a previous x-ray. Previous treatment includes injections, greater than 6 weeks of PT guided rehab, icing, OTC meds, activity modifications. right shoulder pain Cherri walden is a 58 year old female. The patient has a known irrepariable cuff tear/cuff arthropathy. She presents with pain on the right side. The patient returns after prior subacromial injection noting good relief, but pain has returned. The pain is described as aching and is moderate to severe. The pain is intermittent and made worse by activities away from the body. The patient does have pain with overhead activities, does have pain with reaching behind the back, and does have pain at night. The patient has not had episodes of instability. Current treatment has consisted of NSAIDS/Tylenol, icing, prior PT guided rehab. right shoulder pain Cherri walden is a 58 year old female. She has known end stage cuff arthropathy. She presents with pain, weakness and decreased range of motion on the right side. She states that the symptoms have been chronic non-traumatic. She notes a good response (roughly 2 months of near complete relief) to the prior injection and non-op treatments, but pain has returned. The symptoms occur constantly with intermittent worsening. Currently the patient states that the symptoms are moderate-severe. The symptoms occur with activity. The patient is experiencing pain in the following locations: lateral shoulder and anterior shoulder on the right side. The patient has had a previous x-ray. She has had rest, ice/heat, activity mods, PT guided rehab, SA injection in November. right shoulder pain Cherri walden is a 57 year old female. She presents with pain, crepitus and decreased range of motion on the right side. She states that the symptoms have been chronic non-traumatic. She notes symptoms for years. The symptoms occur constantly with intermittent worsening. The problem is fluctuating. Currently the patient states that the symptoms are moderate-severe. The pain is described as aching, sharp and stabbing. The symptoms occur with activity. The symptoms are aggravated by abduction, daily activities, sleeping, lifting away from the body, moving the arm suddenly and reaching overhead. Cherri states that the symptoms are relieved by ice, otc medicines and rest. In addition to right shoulder pain the patient is also experiencing nocturnal awakening. Pertinent negatives include fever, joint instability and tingling in the arms. Prior pain medications include Ultram. Functional Status Date Functional Assessmen t No Information Instructions Date Instruction Additional Infor rolando The patient will pro fabiola to full WBAT and activities as tolerated. The will follow up at one year from surgery with repeat films. They will continue their home exercise plan for maintenance and gradual functional improvement. We discussed the role of joint prophylaxis with oral antibiotics prior to any dental or surgical procedures and to call at any time with questions, concerns, or other issues. Questions answered, verbalized understanding. Related to Presence of right artificial shoulder joint The details of the p rocedure performed and imaging studies were discussed in detail with the patient. The patient will progress to partial weightbearing (no lifting more than 2 pounds), and may progress out of the sling. The will follow up at 3 months from surgery with repeat films and will continue PT per protocol. We discussed the role of joint prophylaxis with oral antibiotics prior to any dental or surgical procedures and to call at any time with questions, concerns, or other issues. Questions answered, verbalized understanding. Related to Presence of right artificial shoulder joint The details of the p rocedure performed and imaging studies were discussed in detail with the patient. The patient will progress to partial weightbearing (no lifting more than 2 pounds), and may progress out of the sling. The will follow up at 6 weeks from surgery with repeat films and will continue PT per protocol. We discussed the role of joint prophylaxis with oral antibiotics prior to any dental or surgical procedures and to call at any time with questions, concerns, or other issues. Questions answered, verbalized understanding. Related to Encounter for other orthopedic aftercare The patient has been cleared for shoulder arthroplasty. The patient has elected to proceed with total shoulder arthroplasty and open tenodesis. However, upon discussion with her family members who have accompanied her to the appointment today, it appears unfortunately Cherri has done none of the preparation needed to proceed with the planned shoulder replacement. She lives alone and has been unable to procure any resources to assist serve the first 7 to 10 days after surgery. Her family all work and are unable to help. As such we have elected to postpone this until perhaps early April to allow them to be home when school is out this would likely be a much better approach. In the interim we will continue symptomatic treatments and readdress as appropriate. Questions answered verbalized understanding agreement with the plan. Related to Bicipital tendinitis, right shoulder Given the patient's failure of a reasonable trial of non-operative treatment options and progression of symptoms to a level which preclude desired activities, we discussed they would be a candidate for reverse total shoulder arthroplasty. We discussed in detail the risks, benefits, and alternatives of total shoulder arthroplasty, and the patient would like to proceed. She would like to do this at [facility] or [facility] as an observation (as required), but likely going home same day. We will make arrangements to have preoperative clearance obtained with assistance of the patient's primary care provider and any medical subspecialists as appropriate. We will coordinate appropriate dental clearance and pre-operative risk evaluation (appropriate BMI evaluation, diabetes control, skin preparation, etc) prior to surgery. I would like to see the patient back once this is all arranged to review in detail and make a final decision on operative intervention. We will obtain calibrated lateral, true AP views as well as pre-op 3D CT scan to template pre-operatively. Questions answered, verbalized understanding. In the interim we discussed the risks, benefits, and alternatives of an injection to try to get some relief in the interim between now and surgery, and she would like to proceed. We will arrange for this today. Related to Bicipital tendinitis, right shoulder Injection performed today as documented. Continue non-operative treatments as outlined previously. Follow up prn if symptoms return or worsen. Questions answered, verbalized understanding. Related to Complete rotatr-cuff tear/ruptr of r shoulder, not trauma After discussing the risk and benefits of continued non-op treatment and a repeat injection the patient would like to proceed. They were given instruction on icing, activity modifications as appropriate, and continued home exercises. We discussed the pros and cons, need for side effect monitoring of OTC medications.We discussed in general the option of reverse shoulder arthroplasty in the future if non-surgical treatment fails to provide adequate relief or significant duration of improvement. This will be discussed in more detail should non-operative treatment fail. We discussed any arthroplasty could not occur sooner than 3 months post injection due to mitchell-prosthetic infection concerns. They will follow up as needed should symptoms worsen or return, and know to call at an time with questions or concerns. Questions answered, verbalized understanding. Related to Bicipital tendinitis, right shoulder After discussing the risks, benefits, and alternatives the patient has elected to proceed with a subacromial injection, We also provided instructions on icing and activity modifications. Instructions were given for a home exercise program as appropriate. We discussed the risk and benefits of an oral NSAID and the patient agreed with side effect monitoring instruction/declined.The patient will follow up on an as needed basis. We discussed we could repeat an injection again in 3 months or more if needed depending on the response today. We discussed possible reverse TSA in the future if non-surgical treatment fails or if the patient would like to proceed with surgery, providing the patient can tolerate this from a medical and post op rehabilitation standpoint. Questions answered, verbalized understanding. Related to Bicipital tendinitis, right shoulder Assessments Type Assessment Date assessment Presence of right artificial star ulder joint Patient Care Teams Name Effective Dates (start - stop) Status Members No Information
--- OUTSIDE RECORDS SUMMARY | 2024-12-03 02:36 | XMS_ITS | Clinical Summary ---
Author Organization [facility] Address [address] [place] [address]. [place], [place] [id number] [place] [address] Care Team Providers Care Gold Tooler Name Role Phone Melani Benton THEODORA Primary Care Provider [phone] Social History Tobacco Use Types Packs/Day Years Used Date Smoking Tobacco: Never Assessed Comments Unknown Sex and Gender Information Value Date Recorded Sex Assigned at Not on file Legal Sex Female 6:12 PM CDT Gender Identity Not on file Sexual Orientation Not on file Last Filed Vital Signs Vital Sign Reading Time Taken Comments Blood Pressure 112/74 06/17/2017 3:14 PM CDT Pulse 67 06/17/2017 3:14 PM CDT Temperature - - Respiratory Rate - - Oxygen Saturation - - Inhaled Oxygen Concentration - - Weight 78 kg (172 lb) 06/17/2017 3:14 PM CDT Height 170.2 cm (5' 7 ) 06/17/2017 3:14 PM CDT Body Mass Index 26.94 06/17/2017 3:14 PM CDT Plan of Treatment Health Maintenance Due Date Last Done Comments Cervical Cancer Screening Pa p Smear (Age 30 to 64) Every 3 Years 1967 Colorectal Cancer Screening Colonoscopy (10 Years) 1967 Annual Physical 1970 Hepatitis C 1985 DTaP, Tdap and Td Vaccines ( 1 - Tdap) 1986 Hepatitis B Vaccines (1 of 3 - 19+ 3-dose series) 1986 Cervical Cancer Screening Pa p with HPV Testing (Age 30 to 64) Every 5 Years 1997 Cervical Cancer Screening with HPV 1997 Mammogram Screening 2007 Zoster Vaccines (1 of 2) 2017 COVID-19 Vaccine (2023-2 5 season) 2024 Influenza Adult (#1) 2024 07/28/2017 Pneumococcal Vaccine: Pediat rics (0 to 5 Years) and At-Risk Patients (6 to 64 Years) Aged Out 06/17/2017 No longer eligi ble based on patient's age to complete this topic Meningococcal B Vaccine Aged Out No l onger eligible based on patient's age to complete this topic Meningococcal Vaccine Aged Out No avril shanita eligible based on patient's age to complete this topic RSV Immunizations Under 20 Months Aged Out No longer eligible based on patient's age to complete this topic Care Teams Gold Tooler Relationship Specialty Start Date End Date Melani Benton FNP [address] [place] [address] PCP - General 01/22/17
--- OUTSIDE RECORDS SUMMARY | 2024-12-03 02:36 | XMS_ITS | Referral Summary ---
Author Organization [facility] Address [facility] [place] [address] Care Team Providers Care Marine Firer Name Role Phone Kaycee Marie MD Primary Care Provider [phone] Source Comments [facility] Affiliates and Associated Physician Practices is amultiple site organization consisting of ambulatory clinics and hospital sitesin [place], [place], [place] and [place]. This disclosure is being madepursuant to the Care Everywhere program and may not contain all information available regarding this patient. Last updated 18.[facility] Allergies No known active allergies Medications * [...] Comments Blood Pressure 119/82 10/18/2021 9:55 AM TAX STAFF ACCOUNTANT Pulse 73 10/18/2021 9:55 AM TAX STAFF ACCOUNTANT Temperature 36.2 ??C (97.1 ??F) 10/18/2021 6:15 AM CS T Respiratory Rate 12 10/18/2021 9:55 AM TAX STAFF ACCOUNTANT Oxygen Saturation 97% 10/18/2021 10:05 AM TAX STAFF ACCOUNTANT Inhaled Oxygen Concentration - - Weight 97.1 kg (214 lb) 10/18/2021 6:15 AM TAX STAFF ACCOUNTANT Height 170.2 cm (5' 7 ) 10/11/2021 1:09 PM TAX STAFF ACCOUNTANT Body Mass Index 33.52 10/11/2021 1:09 PM TAX STAFF ACCOUNTANT Functional Status Functional Status Response Date of Assess ment Is person deaf or have serious hearing difficult y? No 12/05/2017 Is person blind or have serious difficulty seein g? No 12/05/2017 Does person have serious dif ficulty walking/climbing stairs? No 12/05/2017 Does person have difficulty dressing/bathing? No 12/05/2017 Does person have difficulty doing errands alone? No 12/05/2017 Cognitive Status Response Date of Assessm ent Does person have difficulty concentrating/remembering/making decisions? No 12/05/2017 Plan of Treatment Not on file Medical Devices Implanted Type Area Converter Supervisor Device Identifier Shelf Expiration Date Model / Serial / Lot Vtoss Bone Graft Implanted:Qty: 1 on 12/05/2017 by George Sanchez DPM at [facility] Right: Foot [id number] / / [id number] Stpl Bone [id number] 3mm Easyclip Implanted:Qty: 1 on 12/05/2017 by George Sanchez DPM at [facility] Right: Ankle [employer] 06/03/2020 [id number] / / [id number] 7.0mm / 70 Mm Headless Compression Screw Implanted:Qty: 1 on 12/05/2017 by George Sanchez DPM at [facility] Right: Ankle [id number] / / 50 Mm Screw Implanted:Qty: 1 on 12/05/2017 by George Sanchez DPM at [facility] Right: Ankle [id number] / / Ti Asanis Iii Washer 5.0 Mm Implanted:Qty: 1 on 12/05/2017 by George Sanchez DPM at [facility] Right: Ankle [id number] / / Screw 3mm 16mm Chaitanya Rvrs Cut Flut Slf Cut Implanted:Qty: 2 on 09/24/2019 at [facility] Left: Foot [employer] [id number] / / Graft Bone Alfs + Dbm 1cc Algrf Pst Implanted:Qty: 1 on 10/18/2021 by George Sanchez DPM at [facility] Right: Foot [employer] 05/30/2022 [id number] / / [id number] Wire K .045in 6in 2 End Troc Pnt Smth Ss Implanted:Qty: 4 on 10/18/2021 by George Sanchez DPM at [facility] Right: Foot [employer] [id number] / / Explanted Type Area Converter Supervisor Device Identifier Shelf Expiration Date Model / Serial / Lot Pin Fx 2.5mm Smth 100mm Orth Stnm Ss Ns Explanted:Qty: 2 on 12/05/2017 at [facility] Right: Ankle [employer] [id number] / / Gw Orth 2mm 150mm Unthread Fixos Explanted:Qty: 2 on 12/05/2017 at [facility] Right: Ankle [employer] [id number] / / Gw Orth 3.2mm 150mm Unthread Explanted:Qty: 1 on 12/05/2017 at [facility] Right: Ankle [employer] [id number] / / Wire K 1.2mm 100mm 3mm Asns Chaitanya Screw Fx Explanted:Qty: 2 on 09/24/2019 at [facility] Left: Foot [employer] [id number] / / Procedures Procedure Name Priority Date/Time Associated Diagnosis Comments BASIC METABOLIC PANEL (CALCIUM TOTAL) AM Draw 12/14/2017 5:06 AM TAX STAFF ACCOUNTANT from Last 3 Months or Most Recently Relevant to Health Maintenance Results * (ABNORMAL) BASIC METABOLIC PANEL (CALCIUM TOTAL) (12/14/2017 5:06 AM TAX STAFF ACCOUNTANT) Glucose 79 74 - 106 mg/dL 12/14/2017 5:31 AM [facility] Sodium 140 136 - 145 mmol/L 12/14/2017 5:31 AM TAX STAFF ACCOUNTANT [facility] Potassium 3.8 3.5 - 5.1 mmol/L 12/14/2017 5:31 AM TAX STAFF ACCOUNTANT [facility] Chloride 105 98 - 107 mmol/L 12/14/2017 5:31 AM TAX STAFF ACCOUNTANT [facility] CO2 28 22 - 31 mmol/L 12/14/2017 5:31 AM TAX STAFF ACCOUNTANT [facility] Calcium 9.5 8.5 - 10.1 mg/dL 12/14/2017 5:31 AM [facility] Anion Gap 7(L) 8 - 16 mmol/L 12/14/2017 5:31 AM [facility] BUN 10 7 - 21 mg/dL 12/14/2017 5:31 AM [facility] Creatinine 0.65 0.50 - 1.30 mg/dL 12/14/2017 5:31 AM [facility] eGFR by MDRD >60 >60 mL/min/1.7 3m2 12/14/2017 5:31 AM TAX STAFF ACCOUNTANT [facility] eGFR by MDRD >60 >60 mL/min/1.7 3m2 12/14/2017 5:31 AM TAX STAFF ACCOUNTANT [facility] Blood BLOOD SPECIMEN / Unknown Venipuncture / Unknown 12/14/2017 5:06 AM TAX STAFF ACCOUNTANT 12/14/2017 5:10 AM TAX STAFF ACCOUNTANT Osvaldo Hawkins MD LAB - CHEMISTRY SRIDHAR MUÑOZ [facility] Organization Address City/State/ZIP Co de Phone Number [facility] [address] [place] [address] from Last 3 Months or Most Recently Relevant to Health Maintenance Advance Directives * Full Code (Latest Code Status on File) Date Activated Date Inactivated Comments 12/05/2017 2:29 PM 12/15/2017 2:21 PM Care Teams Marine Firer Relationship Specialty Start Date End Date Kaycee Marie MD [address] [place] [address] PCP - General Family Medicine 09/17/19
[2024-12-03 08:25] VITALS: BP 112/83; PULSE 102; RESP 20; TEMP 36.1; O2SAT 97
[2024-12-03] MEDS: LACTATED RINGERS 1,000 ML 150 ML IV CONT (08:37)
--- NOTE | 2024-12-03 09:06 | P.PNAN_ITS ---
Anes - Initial Pre Proc Eval Procedure: Operation Date: 12/03/24 09:30 Proposed Procedures p Colonoscopy - Vincent Conte MD Date/Time: 12/03/24 09:06 Surgeon: Vincent Conte MD Pre Op Diagnosis: fecal abnormalities Patient Data Age: 59 Gender: F Height: 1.68 m Weight: 97.5 kg Last Vital Signs Temp 36.1 C L 12/03/24 08:25 Pulse 102 H 12/03/24 08:25 Resp 20 12/03/24 08:25 BP 112/83 12/03/24 08:25 Pulse Ox 97 12/03/24 08:25 O2 Del Method Room Air 12/03/24 08:25 Allergies Allergy/AdvReac Type Severity Reaction Status Date / Time No Known Allergies Allergy Verified 12/03/24 08:23 Home Medications ?Medication ?Instructions ?Recorded ?Confirmed ?Type bupropion HCl 150 mg 24 hr tablet, 150 mg PO QAM #90 tabs 12/11/23 12/03/24 Rx extended release celecoxib 200 mg capsule (Celebrex) 200 mg PO BID PRN pain #180 caps 10/28/24 12/03/24 Rx aripiprazole 5 mg tablet (Abilify) 5 mg PO DAILY #30 tabs 11/20/24 12/03/24 Rx tramadol 50 mg tablet 50 mg PO Q6H PRN pain #120 tabs 11/23/24 12/03/24 Rx Patient hx anesthesia problems: none Family hx anesthesia problems: none Results Review: All pre-operative results and documents have been reviewed as part of the pre- operative evaluation. [facility] Past Medical History Medical History Hyperlipidemia Radiculopathy Bipolar 1 disorder Obesity Schizophrenia Surgical History Surgical History H/O shoulder surgery H/O knee surgery H/O: hysterectomy (~2014) S/P foot surgery, right (~2018) Family History Family History Mother Depression Family history of mental disorder Sibling Patient's brother is in good health Father Patient's father is Social History Social History Smoking packs per day: 1 Smoking cigarettes per day: 20.0 Years smoked: 15 Smoking pack-years: 15.00 Smoking status: Former smoker Tobacco type: cigarettes Second hand tobacco smoke exposure: No Smoking end date: 11/03/92 Alcohol intake: never Substance use: never Substance use type: does not use Do You Feel Safe in your Home?: Yes Lack of Transportation: No Lack of Food: Never True Current Housing: I Have Housing Concerned About Future Housing: No Difficulty Paying Gas/Electric Bills: No Difficulty Paying for Meds: No Currently Unemployed: No Education: High School Diploma/GED Living arrangements: alone Occupation/Education: retired Gender identity (if verbalized by the patient): Female Spiritual care concerns: No Anes - Eval Final PreProcedure Day of Procedure 12/03/24 09:06 Patient weight: obese Heart: tachycardia Lungs: clear to auscultation Airway: Mallampati scale class II Neurological: alert and oriented Last oral intake: >/= 8 hours ASA classification: III Emergent: no Anesthetic plan: proceed Anesthesia type and monitoring: general GIVS and standard monitoring Results Review: All pre-operative results and documents have been reviewed as part of the pre- operative evaluation. Informed Consent: The patient's anesthetic plan and its attendant risks and benefits were discussed with the patient/family/POA. Questions were solicited and answers provided to the satisfaction of the patient/family/POA.
--- NOTE | 2024-12-03 09:22 | PM.IMHP ---
H&P: HPI History of Present Illness Date/Time: 12/03/24 09:22 Chief Complaint: Screening colonoscopy Narrative: This is the patient's first colonoscopy. There are no GI symptoms and there is no family history of colorectal cancer. Review of Systems Review of Systems: All systems reviewed & are unremarkable except as noted in HPI and below PMFSH Past Medical History Medical History Hyperlipidemia Radiculopathy Bipolar 1 disorder Obesity Schizophrenia Surgical History Surgical History H/O shoulder surgery H/O knee surgery H/O: hysterectomy (~2014) S/P foot surgery, right (~2018) Family History Family History Mother Depression Family history of mental disorder Sibling Patient's brother is in good health Father Patient's father is Social History Social History Smoking packs per day: 1 Smoking cigarettes per day: 20.0 Years smoked: 15 Smoking pack-years: 15.00 Smoking status: Former smoker Tobacco type: cigarettes Second hand tobacco smoke exposure: No Smoking end date: 11/03/92 Alcohol intake: never Substance use: never Substance use type: does not use Do You Feel Safe in your Home?: Yes Lack of Transportation: No Lack of Food: Never True Current Housing: I Have Housing Concerned About Future Housing: No Difficulty Paying Gas/Electric Bills: No Difficulty Paying for Meds: No Currently Unemployed: No Education: High School Diploma/GED Living arrangements: alone Occupation/Education: retired Gender identity (if verbalized by the patient): Female Spiritual care concerns: No Meds Home Medications and Allergies Home Medications ?Medication ?Instructions ?Recorded ?Confirmed ?Type bupropion HCl 150 mg 24 hr tablet, 150 mg PO QAM #90 tabs 12/11/23 12/03/24 Rx extended release celecoxib 200 mg capsule (Celebrex) 200 mg PO BID PRN pain #180 caps 10/28/24 12/03/24 Rx aripiprazole 5 mg tablet (Abilify) 5 mg PO DAILY #30 tabs 11/20/24 12/03/24 Rx tramadol 50 mg tablet 50 mg PO Q6H PRN pain #120 tabs 11/23/24 12/03/24 Rx Allergies Allergy/AdvReac Type Severity Reaction Status Date / Time No Known Allergies Allergy Verified 12/03/24 08:23 Vital Signs Vital Signs - 24 hr 12/03/24 08:25 Temperature 96.9 F L Pulse Rate 102 H Respiratory Rate 20 Blood Pressure 112/83 Pulse Oximetry 97 Oxygen Delivery Room Air Exam Const: General: cooperative and healthy appearing Resp: Effort & Inspection: normal respiratory effort and able to speak in complete sentences Auscultation: clear to auscultation bilaterally Cardio: Rate: regular rate Rhythm: regular rhythm GI: Inspection: normal to inspection GI Palp: No No hepatosplenomegaly present Auscultation: normal bowel sounds Rectal Exam: deferred Skin: General skin exam: normal color Psych: Appearance: grossly normal Mental Status: mental status grossly normal Assessment and Plan Assessment and plan (1) Encounter for screening colonoscopy: Code(s): Z12.11 - Encounter for screening for malignant neoplasm of colon Status: Acute Assessment and Plan: The patient is deemed a good candidate for the procedure. Consent signed. Will proceed.
[2024-12-03 09:45] VITALS: BP 96/64; PULSE 78; RESP 17; O2SAT 96
[2024-12-03 09:55] VITALS: BP 116/80; PULSE 81; RESP 19; O2SAT 99
[2024-12-03 10:05] VITALS: BP 128/84; PULSE 80; RESP 20; O2SAT 100
== END 2024-12-03 10:21 | disposition home or self-care (01) ==
PROVIDERS: PCP Family Medicine; Referring Provider Student in an Organized Health Care Education/Training Program; Visit Provider Internal Medicine Gastroenterology
PROC: 0DJD8ZZ Inspection of Lower Intestinal Tract, Via Natural or Artificial Opening Endoscopic (ICD-10-PCS; CPT 45378; principal; 2024-12-03 09:30)
DX: Z12.11 Encounter for screening for malignant neoplasm of colon (principal); E78.5 Hyperlipidemia, unspecified; F31.9 Bipolar disorder, unspecified; F20.9 Schizophrenia, unspecified; E66.9 Obesity, unspecified; Z68.34 Body mass index [BMI] 34.0-34.9, adult; Z79.891 Long term (current) use of opiate analgesic; Z79.1 Long term (current) use of non-steroidal anti-inflammatories (NSAID); Z98.890 Other specified postprocedural states; Z87.891 Personal history of nicotine dependence; Z80.0 Family history of malignant neoplasm of digestive organs
CPT/HCPCS: G0105; J2003; J2704; J7120

== ENCOUNTER 2025-04-25 10:51 | Outpatient (CLI) | payer MEDICARE, MEDICAID, SELFPAY ==
--- NOTE | ~2025-04-25 | XR_ITS ---
3 VIEWS LUMBAR SPINE Ordering provider: Supriya Cramer, PA History: . Dorsalgia . Comparison: None. FINDINGS: VERTEBRAL BODIES:Loss of height is seen in T12 and L1 most likely chronic.. Otherwise, No visible fra cture or subluxation. Degenerative changes of the spine. DISK SPACES: Narrowing of the disc L3-L4, L4-5 and L5-S1. Multilevel facet joint disease. SOFT TISSUES: Normal. IMPRESSION: No acute osseous abnormality lumbar spine. Loss of height of T12 and L1 which is most likely chronic. Multilevel degenerative disc disease. Reviewed, dictated and finalized at location A. IMPRESSION: No acute osseous abnormality lumbar spine. Loss of height of T12 and L1 which i s most likely chronic. Multilevel degenerative disc disease.
--- NOTE | ~2025-04-25 | XR_ITS ---
XR sacroiliac joints min 3V Ordering provider: Supriya Cramer, WALE History: . Sacroiliac pain . Comparison: None. FINDINGS: BONES: No acute fracture or dislocation. JOINTS: The bilateral sacroiliac joint spaces are normal. No bony fusion of the sacroiliac joints or bony erosions. Degenerative changes of the spine. SOFT TISSUES: Unremarkable. IMPRESSION: NO ACUTE OSSEOUS ABNORMALITY. NORMAL SACROILIAC JOINTS. Reviewed, dictated and finalized at location A.
== END 2025-04-25 10:52 | disposition home or self-care (01) ==
PROVIDERS: PCP Family Medicine; Visit Provider Physician Assistant
DX: R29.890 Loss of height (principal); M51.369 Other intervertebral disc degeneration, lumbar region without mention of lumbar back pain or lower extremity pain; M51.379 Other intervertebral disc degeneration, lumbosacral region without mention of lumbar back pain or lower extremity pain
CPT/HCPCS: 72110; 72202

== ENCOUNTER 2025-05-10 08:26 | Outpatient (CLI) | payer MEDICARE, MEDICAID, SELFPAY ==
--- NOTE | ~2025-05-10 | MR_ITS ---
MRI of the lumbar spine Clinical History: Back pain Technique: Axial T2-weighted images, and sagittal T1-weighted, T2-weighted, and T2 fat-sat images wer e acquired. COMPARISON: 08/26/2014 Findings: There is no acute fracture. There are mild chronic wedging deformities of T11, T12, and L1. There is 5 mm retrolisthesis of L3 over L4. There is minimal grade 1 anterolisthesis of L4 over L5. No suspicious bone marrow signal abnormality seen. At L1-L2, there is minimal disc bulge and mild to moderate facet arthropathy. No central canal stenos is or definite neural foraminal narrowing. At L2-L3, there is no disc bulge or herniation. There is moderate facet arthropathy. No central canal stenosis or neural foraminal narrowing. At L3-L4, there is moderate to advanced degenerative distended. There is diffuse disc bulge with ivan re facet arthropathy. There is moderate spinal canal stenosis/thecal sac compression. There is severe bilateral neural foraminal narrowing. At L4-L5, there is advanced degenerative disc narrowing. Disc bulge and severe facet arthropathy resu lt in severe spinal canal stenosis/thecal sac compression. There is severe bilateral neural foraminal narrowing. At L5-S1, there is moderate to severe degenerative disc narrowing with minimal disc bulge. There is s evere facet arthropathy. No ruben central canal stenosis. There is severe bilateral neural foraminal compromise. Paravertebral soft tissues are unremarkable. Impression: Advanced degenerative spondylosis, especially at L3-L4, L4-L5, and L5-S1. Mild chronic compression deformities of T11, T12, and L1. 5 mm retrolisthesis of L3 over L4. Reviewed, dictated and finalized at [facility]. Impression: Advanced degenerative spondylosis, especially at L3-L4, L4-L5, and L5-S1. Mild chronic compression deformities of T11, T12, and L1. 5 mm retrolisthesis of L3 over L4.
== END 2025-05-10 08:27 | disposition home or self-care (01) ==
LOC: MICIMG 08:26
PROVIDERS: PCP Family Medicine; Visit Provider Physician Assistant
DX: M47.816 Spondylosis without myelopathy or radiculopathy, lumbar region (principal); M47.817 Spondylosis without myelopathy or radiculopathy, lumbosacral region; M48.56XA Collapsed vertebra, not elsewhere classified, lumbar region, initial encounter for fracture; M48.57XA Collapsed vertebra, not elsewhere classified, lumbosacral region, initial encounter for fracture; M48.54XA Collapsed vertebra, not elsewhere classified, thoracic region, initial encounter for fracture; X58.XXXA Exposure to other specified factors, initial encounter
CPT/HCPCS: 72148

== ENCOUNTER 2025-06-16 13:07 | Inpatient (IN) | payer MEDICARE, MEDICAID, SELFPAY ==
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
--- NOTE | ~2025-06-16 | MR_ITS ---
EXAMINATION: MR knee LT wo/w con, MR lower leg LT wo/w con DATE: 06/17/2025 15:55 INDICATION: Left knee pain with abnormal findings on x-ray TECHNIQUE: 1. Magnetic resonance imaging (MRI) of the left knee was performed without intravenous contrast. Seq uences included coronal PD-weighted FSE, coronal PD-weighted FS FSE, coronal T2-weighted FS FSE, sagi ttal T1-weighted FSE, sagittal fluid sensitive FSE STIR, axial T2-weighted FS FSE, axial T1-weighted FSE, axial T1-weighted FS FSE and postcontrast axial, sagittal and coronal T1-weighted FS FSE . 2. MRI of the left lower leg was performed without intravenous contrast. Sequences included axial, sa gittal and coronal T1-weighted FSE and fluid sensitive FSE STIR, axial T1-weighted FS FSE and postcon trast axial, sagittal and coronal T1-weighted FS FSE. The contralateral right lower leg is included o n the coronal images. COMPARISON: None. FINDINGS: Medial compartment: There is medial extrusion of the medial meniscal body. No evident meniscal tear. Near full-thickness central subchondral osteophytes at the anterior weightbearing medial femoral condyle likely at the si te of prior deep chondral ulceration or fissuring. Moderate-sized marginal osteophytes along the medi al tibial plateau. Lateral compartment: Lateral meniscus is normal. There is mild partial-thickness cartilage loss with smooth chondral surfa ce regularity at the lateral aspect of the posterior weightbearing lateral femoral condyle. Many cart ilage in the lateral compartment appears relatively preserved. Small marginal osteophytes along the w eightbearing lateral femoral condyle. Patellofemoral compartment: There is lateral patellar subluxation. Full/near full-thickness chondral ulceration along the lateral half of the lateral trochlea but without degenerative subchondral changes. There is partial thicknes s chondral fissuring without degenerative subchondral changes at the trochlear groove and medial troc hlea. Partial-thickness cartilage loss at the cephalad aspect of the patella with tiny focus of subar ticular edema-like signal change at the central aspect of the lateral facet likely related to overlyi ng chondral fissuring. Moderate-sized inferior patellar and small trochlear marginal osteophytes. Ligaments and tendons: Anterior and posterior cruciate ligaments are normal. There is thickening of the proximal medial osmar ateral ligament with focus of susceptibility artifact underlying the region of the femoral origin of the ligament which suggests prior ligament repair. The fibular collateral ligament complex is normal. Mild distal quadriceps tendinopathy with moderate-sized enthesophyte at its patellar insertion. Segovia llar tendon is normal. There is prominent thickening of the medial patellofemoral retinaculum with mu ltiple foci susceptibility artifact along the retinaculum and along the anteromedial margin of the pr oximal tibia where there is a large heterotopic ossicle which suggests prior medial retinacular repai r. The visualized medial and lateral hamstring tendons as well as the iliotibial band are normal. Fluid: Physiologic amount of fluid in the joint space. No loose osteochondral bodies identified. Osseous/other: There is an irregular contour with corticated margin along the medial aspect of the medial supracondy lar region of the distal femoral metaphysis suggestive of sequela of prior osteotomy. There is promin ent osseous excrescence along the posterior medial aspect of the distal metaphysis. There appears to be a prior corticated junction between the osseous excrescence and the underlying femur which would a rgue against osteochondroma and which favors heterotopic ossification related to old surgery or traum a, potentially avulsive injury of the medial head of the gastrocnemius and/or distal abductor longus insertions. No fracture or pathologic marrow replacing process. Left lower leg: There is an old healed fracture deformity at the mid fibular diaphysis with heterotopic ossification extending across the tibiofibular syndesmosis at this level accounting for the appearance on prior ra diographs. No acute fracture or pathologic marrow replacing process. Metallic magnetic field artifact seen at the contralateral right hindfoot likely for prior subtalar arthrodesis. Correlate with surgi ashley history. Mild to moderate osteoarthritis at the bilateral ankles. There is relatively symmetric m uscle bulk and signal in the bilateral calves. There are some subcutaneous varicosities along the med ial aspect of the bilateral calves. IMPRESSION: 1. Tricompartmental osteoarthritis at the left knee, moderate severity with high-grade lateral trochl ear chondromalacia at the patellofemoral compartment and minimal to mild at the medial and lateral co mpartments. 2. Postoperative change at the left knee suggesting prior medial collateral ligament and medial bowers lofemoral retinaculum repairs with likely secondary heterotopic ossification as detailed above and as seen on prior knee radiographs. No lesion suspicious for malignancy or other acute osseous abnormali ty. 3. Old healed fracture of the mid left fibular diaphysis with bridging heterotopic ossification exten ding to the adjacent femur across the tibiofibular syndesmosis which accounts for the appearance on t he prior radiographs. Reviewed, dictated and finalized at location A. IMPRESSION: 1. Tricompartmental osteoarthritis at the left knee, moderate severity with hig h-grade lateral trochlear chondromalacia at the patellofemoral compartment and minimal to mild at the medial and lateral compartments. 2. Postoperative change at the left knee suggesting prior medial collateral lig ament and medial patellofemoral retinaculum repairs with likely secondary heter otopic ossification as detailed above and as seen on prior knee radiographs. No lesion suspicious for malignancy or other acute osseous abnormality. 3. Old healed fracture of the mid left fibular diaphysis with bridging heteroto pic ossification extending to the adjacent femur across the tibiofibular syndes mosis which accounts for the appearance on the prior radiographs.
--- NOTE | ~2025-06-16 | XR_ITS ---
Exam: X-ray of the left 3 views HISTORY: Knee pain Comparisons: None. TECHNIQUE: 3 images of the left knee were obtained. Findings: Bones appear osteopenic. No fracture. No dislocation. Severe narrowing of the patellofemoral joint. There is a 1.2 x 2.3 cm probable osteophyte about the tibial spine. There is a 6.1 x 1.1 cm heterogeneous masslike structure about the medial femoral condyle and medial tibial plateau. Margins are indistinct. Subtle bony irregularity along the medial cortex of the distal third of the left tibia. There is a possible large osteochondroma along the posterior medial aspect of the left distal femur. Other etiologies are possible. IMPRESSION: 1.There is a 6.1 x 1.1 cm heterogeneous masslike structure about the medial femoral condyle and media l tibial plateau. Margins are indistinct. Differential includes but is not limited to a fluid collect ion or mass. An MRI of the left knee with and without contrast is recommended. 2.There is a possible large osteochondroma along the posterior medial aspect of the left distal femur . Other etiologies are possible. Attention on follow-up MRI imaging. 3. No acute fracture or dislocation. 4. Severe narrowing of the patellofemoral joint. 5. Subtle bony irregularity along the medial cortex of the distal third of the left tibia. The findin g is nonspecific. Attention follow-up MRI imaging. 6.There is a 1.2 x 2.3 cm probable osteophyte about the tibial spine. Reviewed, dictated and finalized at location A. IMPRESSION: 1.There is a 6.1 x 1.1 cm heterogeneous masslike structure about the medial fem oral condyle and medial tibial plateau. Margins are indistinct. Differential in cludes but is not limited to a fluid collection or mass. An MRI of the left kne e with and without contrast is recommended. 2.There is a possible large osteochondroma along the posterior medial aspect of the left distal femur. Other etiologies are possible. Attention on follow-up M RI imaging. 3. No acute fracture or dislocation. 4. Severe narrowing of the patellofemoral joint. 5. Subtle bony irregularity along the medial cortex of the distal third of the left tibia. The finding is nonspecific. Attention follow-up MRI imaging. 6.There is a 1.2 x 2.3 cm probable osteophyte about the tibial spine.
--- NOTE | ~2025-06-16 | US_ITS ---
EXAMINATION: US venous doppler [facility] DATE: 06/16/2025 13:42 INDICATION: Left lower extremity pain TECHNIQUE: Grayscale ultrasound images without and with compression and Doppler ultrasound images of the left lower extremity veins were obtained. COMPARISON: 05/23/2016 FINDINGS: The visualized portions of left common femoral vein, profunda (deep) femoral vein, popliteal vein, pe roneal veins, posterior tibial veins, and greater saphenous vein outflow are patent. Noncompressibility is identified within the left femoral vein, although the left femoral vein is marsh nt with dopplerable flow. This may represent prior thrombus for which clinical correlation with patie nt's history is needed. IMPRESSION: 1. No acute deep venous thrombosis. Findings within the left femoral vein (as detailed above) which may represent prior deep venous thrombosis at this level, for which clinical correlation with patient 's history is needed. Reviewed, dictated and finalized at location A. IMPRESSION: 1. No acute deep venous thrombosis. Findings within the left femoral vein (as detailed above) which may represent prior deep venous thrombosis at this level, for which clinical correlation with patient's history is needed.
--- NOTE | ~2025-06-16 | XR_ITS ---
EXAMINATION: XR ankle LT min 3V DATE: 06/16/2025 15:37 INDICATION: Left ankle injury TECHNIQUE: Anteroposterior, oblique, mortise, and lateral views of the left ankle were obtained. COMPARISON: None. FINDINGS: Postoperative changes with a few screws at the first ray likely related to prior realignment osteotom ies for hallux valgus correction but which is incompletely visualized and suboptimally profiled. Sugg estion of pes planus however assessment is limited on nonweightbearing imaging. No traumatic malalign ment. No fracture. Mild polyarticular osteoarthritis at the subtalar, calcaneocuboid and a few of the tarsal metatarsal joints. No ankle joint effusion. Small plantar calcaneal spur. Heterotopic ossific ation along the mid tibiofibular syndesmosis likely related to old healed fracture IMPRESSION: 1. No acute osseous adenopathy. Chronic postoperative, degenerative and post traumatic changes as det sai above. Reviewed, dictated and finalized at location A. IMPRESSION: 1. No acute osseous adenopathy. Chronic postoperative, degenerative and post tr aumatic changes as detailed above.
[2025-06-16 13:15] VITALS: BP 115/79; PULSE 64; RESP 18; TEMP 36.1; O2SAT 98
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
--- OUTSIDE RECORDS SUMMARY | 2025-06-16 13:16 | XMS_ITS | Continuity of Care Document ---
Author Organization [facility] Address [address] [place] [address] [address] [place] [address] Phone Care Team Providers Care Policy Manager Name Role Phone Suman English Unavailable Unavailable Advance Directives Directive Yes / No Effective Date File Name No Information Encounters Encounter Description Practice Location Reason(s) For Visit Diagnoses Date Provider Providers Copied on Encounter [facility], [id number] [place] [address] [address], [place], [place], [id number], [place] tel:[phone] [facility] [place] No Information [address] [facility] [place] , [address], [place], [address], [place]. tel:[phone] Family History Family Member Type Diagnosis Age At Onset No Information Payers Payer name Insurance type Covered green party ID Authoriza tion(s) No Information Social History [...]
--- OUTSIDE RECORDS SUMMARY | 2025-06-16 13:16 | XMS_ITS | Encounter Summary ---
Author Organization [facility] Address [address] [place] [address] Care Team Providers Care Senior Recruiter Name Role Phone Kaycee Marie MD Primary Care Provider [phone] Encounter Details Date Type Department Care Team (Late st Contact Info) Description 10/15/2024 Orders Only [facility] [address] [place] [address] [place] [address] [facility] [address] [place], [place] [id number] Social History Tobacco Use Types Packs/Day Years Used Date Smoking Tobacco: Former Cigarettes Q uit: 1994 [facility] Utilities Answer Date Recorded In the past 12 months has e electric, gas, oil, or water company threatened to shut off services in your home? No 04/13/2024 Social Connection and Isolation Panel Answer Date Recorded In a typical week, how many times do you talk on the phone with family, friends, or neighbors? More than three times a week 04/13/2024 How often do you get togethe r with friends or relatives? Once a week 04/13/2024 How often do you attend chur ch or taoist services? Never 04/13/2024 Do you belong to any clubs o r organizations such as scientology groups, unions, fraternal or athletic groups, or [...] any time in the past 12 m [facility], were you homeless or living in a longterm (including now)? No 04/13/2024 Personal Safety Answer Date Recorded Have you ever been in or are you currently in a harmful physical or emotional relationship or is someone making you feel afraid or unsafe? Denies 04/12/2024 Comments No Sex and Gender Information Value Date Recorded Sex Assigned at Not on file Legal Sex Female 9:01 PM METHODS ENGINEER Gender Identity Not on file Sexual Orientation Not on file documented as of this encounter Plan of Treatment Not on file documented as of this encounter Procedures Procedure Name Priority Date/Time Associated Diagnosis Comments SCAN - RADIOLOGY/IMAGING 10/15/2024 11:38 AM METHODS ENGINEER documented in this encounter Results * SCAN - RADIOLOGY/IMAGING (10/15/2024 11:38 AM METHODS ENGINEER) Anatomical Region Laterality Modality Other us Laisha Coreas MD Final Resu lt documented in this encounter Visit Diagnoses Not on filedocumented in this encounter Care Teams Senior Recruiter Relationship Specialty Start Date End Date Kaycee Marie MD PCP - General Family Medicine 01/30/24 documented as of this encounter
--- OUTSIDE RECORDS SUMMARY | 2025-06-16 13:17 | XMS_ITS | Continuity of Care Document ---
Author Organization [facility] Address [address] [place] [address] Phone Care Team Providers Care Route Contractor Name Role Phone House HUMAN SERVICES CARE SPECIALIST Cheryl YIP Unavailable Unavail able Allergies, Adverse Reactions, Alerts Substance Reaction Status [...] Pl an Doc Arc 2 0 Sling [place] Arm Sling Global/Postop followup visit Total Shoulder [...] Date Provider Providers Copied on Encounter [facility], [address] [place] [address], [id number], [place] tel:[phone] [facility] Building shoulder (chief complaint) Presence of right artificial shoulder joint 4 House HUMAN SERVICES CARE SPECIALIST Cheryl . [address] [place] [address], [id number] , [place]. tel:[phone] Referring Provider: Kaycee Marie, [address] [place] [address], [id number] . tel:[phone] [facility], [address] [place] [address], [id number], [place] tel:[phone] [facility] shoulder (chief complaint) Presence of right artificial shoulder joint 4 House HUMAN SERVICES CARE SPECIALIST Cheryl . [address] [place] [address], [id number] , [place]. tel:[phone] Referring Provider: Kaycee Marie, [address] [place] [address], [id number] . tel:[phone] [facility], [address] [place] [address], [id number], [place] tel:[phone] [facility] Other specified arthritis, right shoulder 4 Dagmar Gan. [address] [place] [address], [id number] , [place]. tel:[phone] [facility], [address] [place] [address], [id number], [place] tel:[phone] [facility] shoulder (chief complaint) Contracture, right shoulderComplet e rotatr-cuff tear/ruptr of r shoulder, not traumaBicipital tendinitis, right shoulderEncount er for other orthopedic aftercare 4 [place] HUMAN SERVICES CARE SPECIALIST Cheryl . [address] [facility] [place] [address] [address], [place], [place], [id number] , [place]. tel:[phone] Referring Provider: Kaycee Marie, [address] [place] [address], [id number] . tel:[phone] [facility], [address] [address], [place], [place], [id number], [place] tel:[phone] [facility] No Information 4 Dagmar Gan. [address] [address], [place], [place], [id number] , [place]. tel:[phone] Referring Provider: Malik Morales, [address] [address], [place], [address] . tel:[phone] [facility], [address] [address], [place], [place], [id number], [place] tel:[phone] [facility] Contracture, right shoulder March- 4 Dagmar Gan. [address] [address], [place], [place], [id number] , [place]. tel:[phone] Office/outpa tient visit,est, [facility] [employer], [address] [address], [place], [place], [id number], [place] tel:[phone] [facility] Professional Building right shoulder pain (chief complaint) Other specified arthritis, right shoulderContrac ture, right shoulderComplet e rotatr-cuff tear/ruptr of r shoulder, not traumaBicipital tendinitis, right shoulder Feb- 4 Dagmar Gan. [address] [facility] [place] [address], [place], [place], [id number] , [place]. tel:[phone] Referring Provider: Kaycee Marie, [address] [place] [address], [id number] . tel:[phone] [facility], [address] [place] [address], [id number], [place] tel:[phone] [facility] Other specified arthritis, right shoulder 4 Dagmar Gan. [address], [id number] , [place]. tel:[phone] Office/outpa tient visit,est, [facility], [address], [id number], [place] tel:[phone] [facility] right shoulder pain (chief complaint) Complete rotatr-cuff tear/ruptr of r shoulder, not traumaOther specified arthritis, right shoulderBicipit al tendinitis, right shoulder 3 Dagmar Gan. [address] [place] [address], [id number] , [place]. tel:[phone] Referring Provider: Kaycee Marie [address] [place] [address], [id number] . tel:[phone] Office/outpa tient visit,est, [facility], [address] [place] [address], [id number], [place] tel:[phone] [facility] Complete rotatr-cuff tear/ruptr of r shoulder, not traumaOther specified arthritis, right shoulderBicipit al tendinitis, right shoulder 3 Dagmar Gan. [address], [id number] , [place]. tel:[phone] Referring Provider: Kaycee Marie [address] [place] [address], [address] . tel:[phone] [facility], [address] [place] [address], [id number], [place] tel:[phone] [facility] right shoulder pain (chief complaint) Complete rotatr-cuff tear/ruptr of r shoulder, not traumaBicipital tendinitis, right shoulderOther specified arthritis, right shoulder 3 [place] HUMAN SERVICES CARE SPECIALIST Cheryl . [address] [address], [place], [place], [id number] , [place]. tel:[phone] Referring Provider: Kaycee Marie, [address] [place] [address], [id number] . tel:[phone] Office/outpa tient visit,[facility], [address], [id number], [place] tel:[phone] [facility] right shoulder pain (chief complaint) Complete rotatr-cuff tear/ruptr of r shoulder, not traumaOther specified arthritis, right shoulderBicipit al tendinitis, right shoulder 3 Dagmar Gan. [address], [id number] , [place]. tel:[phone] Referring Provider: Kaycee Marie, [address] [place] [address], [id number] . tel:[phone] Office/outpa tient visit,[facility], [address] [place] [address], [id number], [place] tel:[phone] [facility] right shoulder pain (chief complaint) Other specified arthritis, right shoulderComplet e rotatr-cuff tear/ruptr of r shoulder, not traumaBicipital tendinitis, right shoulder 3 Dagmar Gan. [address], [id number] , [place]. tel:[phone] Referring Provider: Malik Leavitt MD T, [address] [address], [place], [address] . tel:[phone] Family History Family Member Type Diagnosis Age At Onset Mother Problem (finding) Depression Mother Problem (finding) Heart Disease Payers Payer name Insurance type Covered green party ID Authoriza tion(s) [employer] Medicare HMO PPO Clai ms Office CI [id number] Medicaid MEDICAID Social History Type Description Quantity [...] She would like to do this at [facility] or [facility] as an observation (as required), but likely [...]
--- OUTSIDE RECORDS SUMMARY | 2025-06-16 13:17 | XMS_ITS | Clinical Summary ---
Author Organization [facility] [employer] Address [facility] [facility] [place] [address] Care Team Providers Care Lay Out Inspector Name Role Phone Kaycee Marie MD Primary Care Provider [phone] Source Comments [facility] [employer],non-[facility] Affiliates and Associated Physician Practices is amultiple site organization consisting of ambulatory clinics and hospital sitesin [place], [place], [place] and [place]. This disclosure is being madepursuant to the Care Everywhere program and may not contain all information available regarding this patient. Last updated 18.[facility] [employer] Allergies No known active allergies Medications * Be aware that medications may not be up to date on this document. Alwaysverify current medications with the patient. buPROPion SR 12hr (ZYBAN) 150 MG tablet Take 150 mg by mouth 2 times daily Active ARIPiprazole (ABILIFY) 10 MG tablet Take 10 mg by mouth once daily Active ibuprofen (MOTRIN) 800 MG tablet Take 1 tablet by mouth every 6 hours as needed for Pain 60 tablet 9 Active Additional Information Patient not taking.Reported on [...] hours as needed for Pain 40 tablet Active acetaminophen (TYLENOL) 500 MG tablet Take 1 (one) tablet by mouth every 4 hours as needed for Fever or Pain Maximum allowable Acetaminophen amount = 4 Grams (4000 mg) / 24 hours. 50 tablet Active Active Problems Problem Noted Date Diagnosed [...] more drinks on one occasion? Never 10/18/2021 Comments No Sex and Gender Information Value Date Recorded Sex Assigned at Not on file Legal Sex Female 6:15 AM ACADEMIC VICE PRESIDENT Gender Identity Not on file Sexual Orientation Not on file Last Filed Vital Signs Vital Sign Reading Time Taken Comments Blood Pressure 119/82 10/18/2021 9:55 AM ACADEMIC VICE PRESIDENT Pulse 73 10/18/2021 9:55 AM ACADEMIC VICE PRESIDENT Temperature 36.2 C (97.1 F) 10/18/2021 6:15 AM ACADEMIC VICE PRESIDENT Respiratory Rate 12 10/18/2021 9:55 AM ACADEMIC VICE PRESIDENT Oxygen Saturation 97% 10/18/2021 10:05 AM ACADEMIC VICE PRESIDENT Inhaled Oxygen Concentration - - Weight 97.1 kg (214 lb) 10/18/2021 6:15 AM ACADEMIC VICE PRESIDENT Height 170.2 cm (5' 7) 10/11/2021 1:09 PM ACADEMIC VICE PRESIDENT Body Mass Index 33.52 10/11/2021 1:09 PM ACADEMIC VICE PRESIDENT Plan of Treatment Health Maintenance Due Date Last Done Comments COLOGUARD (AGES 45-75) - COLON CA SCREENING 1967 COLON MONITORING 1967 COLONOSCOPY - COLON CA SCREENING 1967 CT COLONOGRAPHY - COLON CA SCREENING 1967 Colorectal Cancer Screening 1967 FIT - COLON CA SCREENING 1967 FLEX SIG - COLON CA SCREENING 1967 LIPID TESTING 1967 MAMMOGRAM 1967 HIV SCREENING 1982 HEPATITIS C SCREENING 01/23/1985 DTAP/TDAP/TD VACCINES (1 - Tdap) 1986 HEPATITIS B VACCINE (1 of 3 - 19+ 3-dose series) 1986 PAP SMEAR 01/29/1988 PNEUMOCOCCAL VACCINE 50+ (1 of 1 - PCV) 2017 ZOSTER VACCINE (1 of 2) 2017 COVID-19 VACCINE (3 - 2023- season) 2024 09/29/2021, 01/09/2021 DEPRESSION SCREENING 11/03/2024 INFLUENZA VACCINE (#1) 2025 1, 07/11/2020, 07/26/2019, Additional history exists SCREENING FOR DIABETES 02/01/2027 4, 12/14/2017, 12/10/2017, Additional history exists HIB VACCINE Aged Out No longer eligi ble based on patient's age to complete this topic HPV VACCINE Aged Out No longer eligi ble based on patient's age to complete this topic MENINGOCOCCAL (Group B) VACCINE SHARED DECISION-MAKING Aged Out No longer eligible based on patient's age to complete this topic MENINGOCOCCAL GROUPS A/C/Y/W VACCINE Aged Out No longer eligible based on patient's age to complete this topic Medical Devices Implanted Type Area Night Shift Supervisor Device Identifier Shelf Expiration Date Model / Serial / Lot Vtoss Bone Graft Implanted:Qty: 1 on 12/05/2017 by George Sacnhez DPM at [facility] Right: Foot [id number] / / [id number] Stpl Bone [id number] 3mm Easyclip Implanted:Qty: 1 on 12/05/2017 by George Sanchez DPM at [facility] Right: Ankle [employer] 06/03/2020 [id number] / / [id number] 7.0mm / 70 Mm Headless Compression Screw Implanted:Qty: 1 on 12/05/2017 by George Sanchez DPM at [facility] Right: Ankle [id number] / / 50 Mm Screw Implanted:Qty: 1 on 12/05/2017 by George Sanchez DPM at [facility] Right: Ankle [id number] / / Ti Asanis Iii Washer 5.0 Mm Implanted:Qty: 1 on 12/05/2017 by George Sanchez DPM at [facility] Right: Ankle [id number] / / Screw 3mm 16mm Chaitanya Rvrs Cut Flut Slf Cut Implanted:Qty: 2 on 09/24/2019 at [facility] Left: Foot [employer] [id number] / / Graft Bone Alfs + Dbm 1cc Algrf Pst Implanted:Qty: 1 on 10/18/2021 by George Sanchez DPM at [facility] Right: Foot [employer] 05/30/2022 [id number] / / [id number] Wire K .045in 6in 2 End Troc Pnt Smth Ss Implanted:Qty: 4 on 10/18/2021 by George Sanchez DPM at [facility] Right: Foot [employer] [id number] / / Explanted Type Area Night Shift Supervisor Device Identifier Shelf Expiration Date Model / Serial / Lot Pin Fx 2.5mm Smth 100mm Orth Stnm Ss Ns Explanted:Qty: 2 on 12/05/2017 at [facility] Right: Ankle [employer] [id number] / / Gw Orth 2mm 150mm Unthread Fixos Explanted:Qty: 2 on 12/05/2017 at [facility] Right: Ankle [employer] [id number] / / Gw Orth 3.2mm 150mm Unthread Explanted:Qty: 1 on 12/05/2017 at [facility] Right: Ankle [employer] [id number] / / Wire K 1.2mm 100mm 3mm Asns Chaitanya Screw Fx Explanted:Qty: 2 on 09/24/2019 at [facility] Left: Foot [employer] [id number] / / Procedures Procedure Name Priority Date/Time Associated Diagnosis Comments BASIC METABOLIC PANEL (CALCIUM TOTAL) AM Draw 12/14/2017 5:06 AM ACADEMIC VICE PRESIDENT from Last 3 Months or Most Recently Relevant to Health Maintenance Results * (ABNORMAL) BASIC METABOLIC PANEL (CALCIUM TOTAL) (12/14/2017 5:06 AM ACADEMIC VICE PRESIDENT) Glucose 79 74 - 106 mg/dL 12/14/2017 5:31 AM [facility] Sodium 140 136 - 145 mmol/L 12/14/2017 5:31 AM [facility] Potassium 3.8 3.5 - 5.1 mmol/L 12/14/2017 5:31 AM [facility] Chloride 105 98 - 107 mmol/L 12/14/2017 5:31 AM [facility] CO2 28 22 - 31 mmol/L 12/14/2017 5:31 AM [facility] Calcium 9.5 8.5 - 10.1 mg/dL 12/14/2017 5:31 AM [facility] Anion Gap 7(L) 8 - 16 mmol/L 12/14/2017 5:31 AM [facility] BUN 10 7 - 21 mg/dL 12/14/2017 5:31 AM [facility] Creatinine 0.65 0.50 - 1.30 mg/dL 12/14/2017 5:31 AM [facility] eGFR by MDRD >60 >60 mL/min/1.7 3m2 12/14/2017 5:31 AM [facility] eGFR by MDRD >60 >60 mL/min/1.7 3m2 12/14/2017 5:31 AM [facility] Blood BLOOD SPECIMEN / Unknown Venipuncture / Unknown 12/14/2017 5:06 AM ACADEMIC VICE PRESIDENT 12/14/2017 5:10 AM ACADEMIC VICE PRESIDENT us Osvaldo Hawkins MD LAB - CHEMISTRY ORDERABLES Vanessa braga Result [facility] [address] [place] [address] from Last 3 Months or Most Recently Relevant to Health Maintenance Advance Directives * Full Code (Latest Code Status on File) Date Activated Date Inactivated Comments 12/05/2017 2:29 PM 12/15/2017 2:21 PM Care Teams Lay Out Inspector Relationship Specialty Start Date End Date Kaycee Marie MD [address] [place] [address] PCP - General Family Medicine 09/17/19
--- OUTSIDE RECORDS SUMMARY | 2025-06-16 13:17 | XMS_ITS | Clinical Summary ---
Author Organization [place] [address] [employer] Address [address] [place] [address] Care Team Providers Care Hand Miter Operator Name Role Phone Kaycee Marie MD Primary Care Provider [phone] Allergies Active Allergy Reactions Criticality Noted Date Comments Hydrocodone-Acetaminophen Mental status changes Low 04/13/2024 Medications buPROPion XL (WELLBUTRIN XL) 150 mg 24 hr tablet Take 1 tablet (150 mg total) by mouth every morning Active multivit,Ca,iron-FA -lycopn-lut [id number] os-jnf-dsv-mcg tablet Take 1 tablet by mouth every morning Active traMADoL (ULTRAM) 50 mg tabletIndications:P ain Take 1 tablet (50 mg total) by mouth as needed for pain Active ARIPiprazole (ABILIFY) 5 mg tablet Take 1 tablet (5 mg total) by mouth every morning 4 Active polyethylene glycol (MIRALAX) 17 gram/dose bulk powder Take 17 g by mouth daily as needed (constipatio n) 578 g 5 Active docusate sodium (COLACE) 100 mg capsuleIndications: constipation Take 1 capsule (100 mg total) by mouth 2 (two) times a day 60 capsule 2 5 Active estradioL (ESTRACE) 0.01 % (0.1 mg/gram) vaginal cream Apply 1 gram nightly to vagina for 1 week, then Friday// Friday 42.5 g 11 5 08/13/20 25 Active ibuprofen (ADVIL,MOTRIN) 800 mg tablet Take 1 tablet (800 mg total) by mouth every 8 (eight) hours 30 tablet 5 Active ondansetron ODT (ZOFRAN-ODT) 4 mg disintegrating tablet Take 1 tablet (4 mg total) by mouth every 8 (eight) hours as needed for nausea or vomiting 3 tablet 5 Active acetaminophen (TYLENOL) 325 mg tablet Take 2 tablets (650 mg total) by mouth every 6 (six) hours as needed for pain 30 tablet 5 Active Active Problems Problem Noted Date Diagnosed Date Vaginal prolapse 11/02/2024 Rectocele 10/05/2024 Cystocele, midline 10/05/2024 Vaginal enterocele 10/05/2024 Chronic idiopathic constipation 10/05/2024 S/P reverse total shoulder arthroplasty, right 0 04/12/2024 Nontraumatic complete tear of right rotator cuff 08/28/2023 Allergic arthritis of shoulder region, right Bicipital tendinitis of right shoulder Right foot pain 12/05/2017 Ankle pain 05/01/2017 Arthralgia of hip 08/26/2013 Immunizations Immunization Administration Dates Next Due Influenza, Quadrivalent, Split, [...] Tobacco: Never Tobacco Cessation:Counseling Given: Not Answered [facility] Utilities Answer Date Recorded In the past 12 months has th e electric, gas, oil, or water company [...] often do you attend chur ch or buddhism services? Never 04/13/2024 Do you belong to [...] you have a drink containing alcohol? Never 12/16/2024 Q2: How many drinks containi ng alcohol do you have on a typical day when you are drinking? Patient does not drink Q3: How often do you have si x or more drinks on one occasion? Never 12/16/2024 Overall Financial Resource Strain (CARDIA) Answe r [...] any time in the past [address] [facility], were you homeless or living in a usp (including now)? No 04/13/2024 Personal Safety Answer Date Recorded Have you ever been in or are you currently in a harmful physical or emotional relationship or is someone making you feel afraid or unsafe? Denies 12/16/2024 Comments No Sex and Gender Information Value Date Recorded Sex Assigned at Not on file Legal Sex Female 9:01 PM FLAT LOCKER Gender Identity Not on file Sexual Orientation Not on file Obstetrics History Para Term AB IAB SAB Ectopic Multiple Livin g Live Births 0 0 0 0 0 0 0 0 0 0 0 Last Filed Vital Signs Vital Sign Reading Time Taken Comments Blood Pressure 131/80 12/16/2024 2:30 PM FLAT LOCKER Pulse 68 12/16/2024 2:30 PM FLAT LOCKER Temperature 36.5 C (97.7 F) 12/16/2024 1:35 PM FLAT LOCKER Respiratory Rate 12 12/16/2024 2:30 PM FLAT LOCKER Oxygen Saturation 97% 12/16/2024 2:30 PM FLAT LOCKER Inhaled Oxygen Concentration - - Weight 95.3 kg (210 lb 1.6 oz) 12/16/2024 9:29 A M FLAT LOCKER Height 167.6 cm (5' 6) 11/24/2024 4:39 PM FLAT LOCKER Body Mass Index 33.91 11/24/2024 4:39 PM FLAT LOCKER Plan of Treatment Health Maintenance Due Date Last Done Comments Colon Cancer Screening-Colonoscopy 1967 Depression Screening 1967 Hepatitis C Screening 1967 DTaP/Tdap/Td Vaccine (1 - Tdap) 1978 Hepatitis B Screening 1985 Zoster Vaccine (3 of 3) 11/26/2018 10/01/2018, 07/28 Influenza Vaccine (#1) 2025 9, 07/26/2019, 07/09/2018, Additional history exists Regular Well Visit/Exam 18-64 10/05/2025 10/05/2024, 12/23/2019 Breast Cancer Screening-Mammogram 11/24/2025 11/24/2024 Pneumococcal vaccine <65 Aged Out 06/17/2017 No longer eligible based on patient's age to complete this topic Medical Devices Implanted Type Area Genetic Counselor Device Identifier Shelf Expiration Date Model / Serial / Lot Metal Bilateral: Foot Ar[employer]rex Inc Arthrex 24mm Modular Shoulder +4mm Baseplate Glenoid Sterile Ut-9235-40-4 - [id number] Implanted:Qty: 1 on 04/12/2024 by Malik Leavitt MD at [facility] Right: Shoulder [employer] Inc [id number] 11/02/2028 AR-9560-2 4-4 / / [id number] Arthrex Inc Univers Revers Univers [place] Shoulder 8 Stem Humeral Ar-9501-08s - [id number] Implanted:Qty: 1 on 04/12/2024 by Malik Leavitt MD at [facility] Right: Shoulder [employer] Inc [id number] 04/02/2028 AR-9501-0 8S / / [id number] Arthrex Inc Arthrex 25mm Central Modular Shoulder Screw Baseplate Sterile Ar-9561-25s - [id number] Implanted:Qty: 1 on 04/12/2024 by Malik Leavitt MD at [facility] Right: Shoulder [employer] Inc [id number] 11/02/2027 AR-9561-2 5S / / [id number] Arthrex Inc 36mm 24 Baseplate Taper Sphere Glenoid Xw-1252-2553 - [id number] Implanted:Qty: 1 on 04/12/2024 by Malik Leavitt MD at [facility] Right: Shoulder [employer] Inc [id number] 06/02/2028 AR-9564-2 436 / / [id number] Arthrex Inc 4.5mm 32mm Peripheral Screw Bone Sterile Pg-5973-15nq - [id number] Implanted:Qty: 1 on 04/12/2024 by Malik Leavitt MD at [facility] Right: Shoulder [employer] Inc [id number] 09/02/2028 AR-9562-3 2NL / / [id number] Ar[employer]rex Inc 4.5mm 32mm Peripheral Screw Bone Sterile Pk-[id number] - [id number] Implanted:Qty: 1 on 04/12/2024 by Malik Leavitt MD at [facility] Right: Shoulder Ar[employer] Inc [id number] 09/02/2028 AR-9562-3 2NL / / [id number] Ar[employer]rex Inc Screw Glenoid Locking Reverse Univers Revers 5.5x20mm Titanium Ar-9563-20 - [id number] Implanted:Qty: 1 on 04/12/2024 by Malik Leavitt MD at [facility] Right: Shoulder [employer] Inc [id number] 11/02/2028 AR-9563-2 0 / / [id number] Ar[employer]rex Inc Screw Glenoid Locking Reverse Univers Revers 5.5x20mm Titanium Ar-9563-20 - [id number] Implanted:Qty: 1 on 04/12/2024 by Malik Leavitt MD at [facility] Right: Shoulder Ar[employer] Inc [id number] 11/02/2028 AR-9563-2 0 / / [id number] Ar[employer]rex Inc Arthrex Univers Revers 36mm Suture Cup Humeral Sterile Latex Free Ng-5470l-74uxw - [id number] Implanted:Qty: 1 on 04/12/2024 by Malik Leavitt MD at [facility] Right: Shoulder Ar[employer]rex Inc [id number] 11/02/2028 AR-9502F- 36CPC / / [id number] Arthrex Inc Univers Revers 36mm Shoulder +3mm Small Insert Humeral Sterile Ar-9503s-03 - [id number] Implanted:Qty: 1 on 04/12/2024 by Malik Leavitt MD at [facility] Right: Shoulder [employer] Inc [id number] 09/02/2028 AR-9503S- 03 / / [id number] Procedures Procedure Name Priority Date/Time Associated Diagnosis Comments SCREENING MAMMOGRAM Schedule Routine, Read Routine (OP Routine) 11/24/2024 7:51 AM FLAT LOCKER from Last 3 Months or Most Recently Relevant to Health Maintenance Results * Screening Mammogram (11/24/2024 7:51 AM FLAT LOCKER) Anatomical Region Laterality Modality Breast N/A Mammography us Historical Provider MD HERNANDEZ MAMMO PROCEDURES Vanessa l Result from Last 3 Months or Most Recently Relevant to Health Maintenance Insurance IDPA DR ESTRADA [address] [place] [id number] [facility]DE [facility] MEDICARE O [facility] MEDIC[facility] HMO IDPA Advance Directives For more information, please contact: [phone] * Full Code (Latest Code Status on File) Date Activated Date Inactivated Comments 04/12/2024 5:42 PM 04/16/2024 12:17 AM Care Teams Hand Miter Operator Relationship Specialty Start Date End Date Kaycee Marie MD PCP - General Family Medicine 01/30/24
--- OUTSIDE RECORDS SUMMARY | 2025-06-16 13:17 | XMS_ITS | Continuity of Care Document ---
Author Organization [facility] Address [address] [place] [address] Phone Care Team Providers Care Professional Fee Coder Name Role Phone Cedrick Louie MD Unavailable Unavailable Advance Directives Directive Yes / No Effective Date File Name No Information Encounters Encounter Description Practice Location Reason(s) For Visit Diagnoses Date Provider Providers Copied on Encounter [facility], [address], [place], [place], [id number], tel:[phone] [facility] No Information Liban Philip. [address] , [place], [place], [id number], [place]. tel:[phone] Referring Provider: Jin Gomez, [address], [place], [address]. tel:[phone] Family History Family Member Type Diagnosis Age At Onset No Information Payers Payer name Insurance type Covered green party ID Authoriza tion(s) MEDICARE [id number] Social History Type Description Quantity Date Captured [...]
--- OUTSIDE RECORDS SUMMARY | 2025-06-16 13:17 | XMS_ITS | Patient Health Record ---
Author Organization [facility] Address [facility] [place] [address] Care Team Providers Care Sales Promotion Director Name Role Phone Kaycee Marie MD Primary Care Provider José Luis Herman Unavailable [phone] Allergies No Known Allergies Reason For Referral No Information Social History Sex Assigned At : Social History Observation Description Sex Assigned At Female Plan Of Treatment No Information Insurance Providers Payer Name Payer Address Payer Phone Subscriber Number Group Number Insured Name Patient Relationship to Insured Coverage Start Date Coverage End Date [employer] [address] [address] [place] [address] [phone] [id number] MELVIN ROYAL Self - patient is the insured Medicaid-[place] l Medicaid [address] [address] [place] [address] [id number] MELVIN ROYAL Self - patient is the insured Medical (General) History Medical History History ICD Code Bipolar 1 disorder HLD Obesity Schizophrenia
--- OUTSIDE RECORDS SUMMARY | 2025-06-16 13:17 | XMS_ITS | Clinical Summary ---
Author Organization [facility] Address [address] [place] [address] Care Team Providers Care Hard Tile Setter Apprentice Name Role Phone Melani Benton Primary Care Provider Social History Tobacco Use Types Packs/Day Years [...] 3:14 PM CDT Height 170.2 cm (5' 7) 06/17/2017 3:14 PM CDT Body Mass Index [...] 2007 Zoster Vaccines (1 of 2) 2017 Pneumococcal Vaccine: 50+ Ye ars (2 of 2 - PPSV23) 06/17/2018 06/17/2017 COVID-19 Vaccine (2023-2 5 season) 2024 Meningococcal B Vaccine Aged Out No l onger eligible based on patient's age to complete this topic Meningococcal Vaccine Aged Out No avril shanita eligible based on patient's age to complete this topic RSV Immunizations Under 20 Months Aged Out No longer eligible based on patient's age to complete this topic Care Teams Hard Tile Setter Apprentice Relationship Specialty Start Date End Date Melani Benton FNP [address] [place] [address] PCP - General 01/22/17
--- OUTSIDE RECORDS SUMMARY | 2025-06-16 14:47 | XMS_ITS | Encounter Summary ---
Author Organization [facility] Address [address] [place] [address] Care Team Providers Care Tax Map Technician Name Role Phone Kaycee Marie MD Primary Care Provider [phone] Encounter Details Date Type Department Care Team (Late st Contact Info) Description 10/15/2024 Orders Only [facility] [address] [place] [address] [place] [address] [facility] [address] [place], [place] [id number] Social History Tobacco Use Types Packs/Day Years Used Date Smoking Tobacco: Former Cigarettes Q uit: 1994 [facility] Utilities Answer Date Recorded In the [...] often do you attend chur ch or buddhist services? Never 04/13/2024 Do you belong to any clubs o r organizations such as catholic groups, unions, fraternal or athletic groups, or [...] any time in the past [address] [facility], were you homeless or living in a intermediate (including now)? No 04/13/2024 Personal Safety Answer Date Recorded Have you ever been in or are you currently in a harmful physical or emotional relationship or is someone making you feel afraid or unsafe? Denies 04/12/2024 Comments No Sex and Gender Information Value Date Recorded Sex Assigned at Not on file Legal Sex Female 9:01 PM DISPENSING OPTICIAN Gender Identity Not on file Sexual Orientation Not on file documented as of this encounter Plan of Treatment Not on file documented as of this encounter Procedures Procedure Name Priority Date/Time Associated Diagnosis Comments SCAN - RADIOLOGY/IMAGING 10/15/2024 11:38 AM DISPENSING OPTICIAN documented in this encounter Results * SCAN - RADIOLOGY/IMAGING (10/15/2024 11:38 AM DISPENSING OPTICIAN) Anatomical Region Laterality Modality Other us Laisha Coreas MD Final Resu lt documented in this encounter Visit Diagnoses Not on filedocumented in this encounter Care Teams Tax Map Technician Relationship Specialty Start Date End Date Kaycee Marie MD PCP - General Family Medicine 01/30/24 documented as of this encounter
--- OUTSIDE RECORDS SUMMARY | 2025-06-16 14:47 | XMS_ITS | Clinical Summary ---
Author Organization [facility] Address [facility] [facility] [place] [address] Care Team Providers Care Provider Service Representative Name Role Phone Kaycee Marie MD Primary Care Provider [phone] Source Comments [facility] Affiliates and Associated Physician Practices is amultiple site organization consisting of ambulatory clinics and hospital sitesin [place], [place], [place] and [place]. This disclosure is being madepursuant to the Care Everywhere program and may not contain all information available regarding this patient. Last updated 18.[facility] Allergies No known active allergies Medications * [...] on file Legal Sex Female 6:15 AM KICK BOXER Gender Identity Not on file Sexual Orientation Not on file Last Filed Vital Signs Vital Sign Reading Time Taken Comments Blood Pressure 119/82 10/18/2021 9:55 AM KICK BOXER Pulse 73 10/18/2021 9:55 AM KICK BOXER Temperature 36.2 C (97.1 F) 10/18/2021 6:15 AM KICK BOXER Respiratory Rate 12 10/18/2021 9:55 AM KICK BOXER Oxygen Saturation 97% 10/18/2021 10:05 AM KICK BOXER Inhaled Oxygen Concentration - - Weight 97.1 kg (214 lb) 10/18/2021 6:15 AM KICK BOXER Height 170.2 cm (5' 7) 10/11/2021 1:09 PM KICK BOXER Body Mass Index 33.52 10/11/2021 1:09 PM KICK BOXER Plan of Treatment Health Maintenance Due Date [...] this topic Medical Devices Implanted Type Area Farm Equipment Engineer Device Identifier Shelf Expiration Date Model / Serial / Lot Vtoss Bone Graft Implanted:Qty: 1 on 12/05/2017 by George Sanchez DPM at [facility] Right: Foot [id number] / / [id number] Stpl Bone 45d25l7.5-1.6mm 3mm Easyclip Implanted:Qty: 1 on 12/05/2017 by George Sanchez DPM at [facility] Right: Ankle [employer] Inc 06/03/2020 [id number] / / [id number] 7.0mm / 70 Mm Headless Compression Screw Implanted:Qty: 1 on 12/05/2017 by George Sanchez DPM at [facility] Right: Ankle [id number] / / 50 Mm Screw Implanted:Qty: 1 on 12/05/2017 by George Sanchez DPM at [facility] Right: Ankle [id number] / / Ti Asanis Iii Washer 5.0 Mm Implanted:Qty: 1 on 12/05/2017 by George Sanchez DPM at [facility] Right: Ankle [id number] / / Screw 3mm 16mm Chaitanya Rvrs Cut Flut Slf Cut Implanted:Qty: 2 on 09/24/2019 at [facility] Left: Foot [employer] [id number] / / Graft Bone Alfs + Dbm 1cc Algrf Pst Implanted:Qty: 1 on 10/18/2021 by George Sanchez DPM at [facility] Right: Foot [employer] 05/30/2022 [id number] / / [id number] Wire K .045in 6in 2 End Troc Pnt Smth Ss Implanted:Qty: 4 on 10/18/2021 by George Sanchez DPM at [facility] Right: Foot [employer] [id number] / / Explanted Type Area Farm Equipment Engineer Device Identifier Shelf Expiration Date Model / Serial / Lot Pin Fx 2.5mm Smth 100mm Orth Stnm Ss Ns Explanted:Qty: 2 on 12/05/2017 at [facility] Right: Ankle [employer] [id number] / / Gw Orth 2mm 150mm Unthread Fixos Explanted:Qty: 2 on 12/05/2017 at [facility] Right: Ankle [employer] [id number] / / Gw Orth 3.2mm 150mm Unthread Explanted:Qty: 1 on 12/05/2017 at [facility] Right: Ankle [employer] [id number] / / Wire K 1.2mm 100mm 3mm Asns Chaitanya Screw Fx Explanted:Qty: 2 on 09/24/2019 at [facility] Left: Foot [employer] [id number] / / Procedures Procedure Name Priority Date/Time Associated Diagnosis Comments BASIC METABOLIC PANEL (CALCIUM TOTAL) AM Draw 12/14/2017 5:06 AM KICK BOXER from Last 3 Months or Most Recently Relevant to Health Maintenance Results * (ABNORMAL) BASIC METABOLIC PANEL (CALCIUM TOTAL) (12/14/2017 5:06 AM KICK BOXER) Glucose 79 74 - 106 mg/dL 12/14/2017 5:[address] [facility] Sodium 140 136 - 145 mmol/L 12/14/2017 5:[address] [facility] Potassium 3.8 3.5 - 5.1 mmol/L 12/14/2017 5:[address] [facility] Chloride 105 98 - 107 mmol/L 12/14/2017 5:[address] [facility] CO2 28 22 - 31 mmol/L 12/14/2017 5:[address] [facility] Calcium 9.5 8.5 - 10.1 mg/dL 12/14/2017 5:[address] [facility] Anion Gap 7(L) 8 - 16 mmol/L 12/14/2017 5:[address] [facility] BUN 10 7 - 21 mg/dL 12/14/2017 5:[address] [facility] Creatinine 0.65 0.50 - 1.30 mg/dL 12/14/2017 5:[address] [facility] eGFR by MDRD >60 >60 mL/min/1.7 3m2 12/14/2017 5:[address] [facility] eGFR by MDRD >60 >60 mL/min/1.7 3m2 12/14/2017 5:[address] [facility] Blood BLOOD SPECIMEN / Unknown Venipuncture / Unknown 12/14/2017 5:06 AM KICK BOXER 12/14/2017 5:10 AM KICK BOXER us Osvaldo Hawkins MD LAB - CHEMISTRY ORDERABLES Vanessa braga Result [facility] [address] [place] [address] from Last 3 Months or Most Recently Relevant to Health Maintenance Advance Directives * Full Code (Latest Code Status on File) Date Activated Date Inactivated Comments 12/05/2017 2:29 PM 12/15/2017 2:21 PM Care Teams Provider Service Representative Relationship Specialty Start Date End Date Kaycee Marie MD [address] [place] [address] PCP - General Family Medicine 09/17/19
--- OUTSIDE RECORDS SUMMARY | 2025-06-16 14:47 | XMS_ITS | Clinical Summary ---
Author Organization [facility] [address] [place] Address [address] [place] [id number] Care Team Providers Care Studio Artist Name Role Phone Kaycee Marie MD Primary Care Provider [phone] Allergies Active Allergy Reactions Criticality Noted Date Comments Hydrocodone-Acetaminophen Mental status changes Low 04/13/2024 Medications buPROPion XL (WELLBUTRIN XL) 150 mg 24 hr tablet Take 1 tablet (150 mg total) by mouth every morning Active multivit,Ca,iron-FA -lycopn-lut [id number] tl-pfm-bhc-mcg tablet Take 1 tablet by mouth every [...] Tobacco: Never Tobacco Cessation:Counseling Given: Not Answered [facility] Utilities Answer Date Recorded In the [...] often do you attend chur ch or temple services? Never 04/13/2024 Do you belong to any clubs o r organizations such as mandaeism groups, unions, fraternal or athletic groups, or [...] time in the past [address] [facility], were you homeless or living in [...] on file Legal Sex Female 9:01 PM DIGITAL RESEARCH ANALYST Gender Identity Not on file Sexual Orientation Not on file Obstetrics History Para Term AB IAB SAB Ectopic Multiple Livin g Live Births 0 0 0 0 0 0 0 0 0 0 0 Last Filed Vital Signs Vital Sign Reading Time Taken Comments Blood Pressure 131/80 12/16/2024 2:30 PM DIGITAL RESEARCH ANALYST Pulse 68 12/16/2024 2:30 PM DIGITAL RESEARCH ANALYST Temperature 36.5 C (97.7 F) 12/16/2024 1:35 PM DIGITAL RESEARCH ANALYST Respiratory Rate 12 12/16/2024 2:30 PM DIGITAL RESEARCH ANALYST Oxygen Saturation 97% 12/16/2024 2:30 PM DIGITAL RESEARCH ANALYST Inhaled Oxygen Concentration - - Weight 95.3 kg (210 lb 1.6 oz) 12/16/2024 9:29 A M DIGITAL RESEARCH ANALYST Height 167.6 cm (5' 6) 11/24/2024 4:39 PM DIGITAL RESEARCH ANALYST Body Mass Index 33.91 11/24/2024 4:39 PM DIGITAL RESEARCH ANALYST Plan of Treatment Health Maintenance Due Date [...] this topic Medical Devices Implanted Type Area Hat Forming Machine Feeder Device Identifier Shelf Expiration Date Model / Serial / Lot Metal Bilateral: Foot [employer] Arthrex 24mm Modular Shoulder +4mm Baseplate Glenoid Sterile [id number] - [id number] Implanted:Qty: 1 on 04/12/2024 by Malik Leavitt MD at [facility] Right: Shoulder [employer] [id number] 11/02/2028 AR-9560-2 4-4 / / [id number] [employer] Univers Revers Univers Dawson Shoulder 8 Stem Humeral Ar-9501-08s - [id number] Implanted:Qty: 1 on 04/12/2024 by Malik Leavitt MD at [facility] Right: Shoulder [employer] [id number] 04/02/2028 AR-9501-0 8S / / [id number] [employer] Arthrex 25mm Central Modular Shoulder Screw Baseplate Sterile Ar-9561-25s - [id number] Implanted:Qty: 1 on 04/12/2024 by Malik Leavitt MD at [facility] Right: Shoulder [employer] [id number] 11/02/2027 AR-9561-2 5S / / [id number] [employer] 36mm 24 Baseplate Taper Sphere Glenoid [id number] - [id number] Implanted:Qty: 1 on 04/12/2024 by Malik Leavitt MD at [facility] Right: Shoulder [employer] [id number] 06/02/2028 AR-9564-2 436 / / [id number] [employer] Inc 4.5mm 32mm Peripheral Screw Bone Sterile [id number]-[id number] - [id number] Implanted:Qty: 1 on 04/12/2024 by Malik Leavitt MD at [facility] Right: Shoulder [employer] [id number] 09/02/2028 AR-9562-3 2NL / / [id number] [employer] 4.5mm 32mm Peripheral Screw Bone Sterile Ch-[id number] - [id number] Implanted:Qty: 1 on 04/12/2024 by Malik Leavitt MD at [facility] Right: Shoulder [employer] [id number] 09/02/2028 AR-9562-3 2NL / / [id number] [employer] Screw Glenoid Locking Reverse Univers Revers 5.5x20mm Titanium Ar-9563-20 - [id number] Implanted:Qty: 1 on 04/12/2024 by Malik Leavitt MD at [facility] Right: Shoulder [employer] [id number] 11/02/2028 AR-9563-2 0 / / [id number] [employer] Screw Glenoid Locking Reverse Univers Revers 5.5x20mm Titanium Ar-9563-20 - [id number] Implanted:Qty: 1 on 04/12/2024 by Malik Leavitt MD at [facility] Right: Shoulder [employer] [id number] 11/02/2028 AR-9563-2 0 / / [id number] [employer] Arthrex Univers Revers 36mm Suture Cup Humeral Sterile Latex Free [id number] - [id number] Implanted:Qty: 1 on 04/12/2024 by Malik Leavitt MD at [facility] Right: Shoulder [employer] [id number] 11/02/2028 AR-9502F- 36CPC / / [id number] [employer] Univers Revers 36mm Shoulder +3mm Small Insert Humeral Sterile Ar-9503s-03 - [id number] Implanted:Qty: 1 on 04/12/2024 by Malik Leavitt MD at [facility] Right: Shoulder [employer] [id number] 09/02/2028 AR-9503S- 03 / / [id number] Procedures Procedure Name Priority Date/Time Associated Diagnosis Comments SCREENING MAMMOGRAM Schedule Routine, Read Routine (OP Routine) 11/24/2024 7:51 AM DIGITAL RESEARCH ANALYST from Last 3 Months or Most Recently Relevant to Health Maintenance Results * Screening Mammogram (11/24/2024 7:51 AM DIGITAL RESEARCH ANALYST) Anatomical Region Laterality Modality Breast N/A Mammography us Historical Provider MD HERNANDEZ MAMMO PROCEDURES Vanessa l Result from Last 3 Months or Most Recently Relevant to Health Maintenance Insurance [address] ESTRADA [address] [place] [id number] [employer] [facility] MEDICARE O [facility] MEDICARE HMO IDPA Advance Directives For more information, please contact: [phone] * Full Code (Latest Code Status on File) Date Activated Date Inactivated Comments 04/12/2024 5:42 PM 04/16/2024 12:17 AM Care Teams Studio Artist Relationship Specialty Start Date End Date Kaycee Marie MD PCP - General Family Medicine 01/30/24
--- OUTSIDE RECORDS SUMMARY | 2025-06-16 14:47 | XMS_ITS | Clinical Summary ---
Author Organization [facility] Address [address] [place] [id number] Care Team Providers Care Care Rep Name Role Phone Melani Bentno Primary Care Provider [phone] Social History Tobacco Use Types Packs/Day Years [...] age to complete this topic Care Teams Care Rep Relationship Specialty Start Date End Date Melani Benton FNP [address] [place] [address] PCP - General 01/22/17
[2025-06-16] MEDS: ACETAMINOPHEN 500 MG TABLET 1000 MG PO (15:04)
[2025-06-16] MEDS: oxyCODONE HCL (*CRX) 5 MG TAB IR PO (15:05)
--- NOTE | 2025-06-16 17:12 | PC.NURSE ---
Attempted to ambulate pt per EDP. Used walker to stand, pt reports unable to walk d/t extreme pain. made aware. Awaiting new orders for pain medication per dr. Henry
[2025-06-16] MEDS: KETOROLAC 30 MG/ML VIAL (*BKC) IM (17:33)
[2025-06-16] MEDS: HYDROmorphone HCL INJ (*CRX) 1 MG/ML SYR IM (17:34)
--- NOTE | 2025-06-16 18:04 | PC.NURSE ---
Attempted to ambulate pt for second time per EDP after pain medication administration. Pt continues to not ambulate or bear weight on L leg d/t pain. at bedside, aware.
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
[2025-06-16 20:56] LABS: Hematocrit 40.5 % (37.0-47.0); Hemoglobin 13.2 g/dL (12.0-15.0); Mean Corpuscular HGB Conc 32.6 g/dl (32-36); Mean Corpuscular Hemoglobin 29.2 pg (26-34); Mean Corpuscular Volume 89.6 fl (80-100); Platelet Count Result 329 k/mm3 (150-375); Red Blood Count 4.52 M/mm3 (4.2-5.4); White Blood Count 7.1 K/mm3 (4.5-10.0)
[2025-06-16 21:01] VITALS: BP 119/60; PULSE 62; RESP 16; TEMP 36.4; O2SAT 96
[2025-06-16 21:02] VITALS: BP 119/60; PULSE 62; RESP 16; TEMP 36.4; O2SAT 96
[2025-06-16 21:14] LABS: Anion Gap 8 mmol/L (4-12); Blood Urea Nitrogen 29 mg/dL (7-17); Calcium 9.2 mg/dL (8.4-10.2); Carbon Dioxide 21 mmol/L (22-30); Chloride 109 mmol/L (98-107); Estimated CRCL calculation 95 ml/min; Estimated Glomerular Filt Rate > 60; Glucose 110 mg/dL (65-110); Potassium 3.9 mmol/L (3.4-5.0); Sodium 138 mmol/L (137-145)
[2025-06-16 21:41] VITALS: BP 104/71; PULSE 53; RESP 16; TEMP 36.5; O2SAT 98
[2025-06-16 22:51] VITALS: BMI 37.5
--- NOTE | 2025-06-16 23:02 | ADMGEN ---
This patient, Cherri Ferreira, was admitted to [facility] Surg Room 325-01. Patient/family oriented to hospital policies and general routines including ID bracelet, bed and alarms, visiting hours, pain management, procedures, bathroom and other care routines, personal items, smoking policy, room service/diet, and visiting hours. Information on how to activate the Rapid Response Team has been discussed. Patient/Family are encouraged to report perceived risks to care and to ask questions if they do not understand what they are told or what they should do.
[2025-06-16] MEDS: MORPHINE SULFATE (*CRX) 2 MG/ML INJ IV PUSH (23:40)
[2025-06-17 06:00] VITALS: BP 110/68; PULSE 60; RESP 18; TEMP 36.6; O2SAT 100
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
[2025-06-17] MEDS: ENOXAPARIN 40 MG/0.4 ML SYRINGE SUB-Q (08:52)
[2025-06-17] MEDS: buPROPion HCL XL (24 HR) 150 MG TABCR PO (08:52)
[2025-06-17] MEDS: MORPHINE SULFATE (*CRX) 2 MG/ML INJ IV PUSH ×3 (08:53→20:59)
[2025-06-17 11:09] VITALS: O2SAT 97
[2025-06-17] MEDS: LORazepam INJ (*CRX) 2 MG/ML VIAL 1 MG IV PUSH (13:45)
[2025-06-17 22:00] VITALS: BP 114/65; PULSE 56; RESP 14; TEMP 36.2; O2SAT 99
[2025-06-18 06:00] VITALS: BP 122/68; PULSE 55; RESP 14; TEMP 36.6; O2SAT 99
--- NOTE | 2025-06-18 08:19 | P.PNIM_ITS ---
Progress Note: A&P Assessment and Plan (1) Knee pain: Qualifiers: Chronicity: acute Laterality: left Qualified Code(s): M25.562 - Pain in left knee Code(s): M25.569 - Pain in unspecified knee Status: Acute Assessment and Plan: * US LLE: * No acute deep venous thrombosis. Findings within the left femoral vein (as detailed above) which may represent prior deep venous thrombosis at this level, for which clinical correlation with patient's history is needed. * Tib/Fib XR: Indeterminate findings within the mid shaft of the tibia and fibula (as detailed above) which may represent sequelae of prior injury or a bony lesion for which contrast enhanced MRI is nonemergent follow-up is recommended. * Clinical correlation is also needed, regarding the indeterminate age of these findings (regarding a pertinent history of discrete fracture deformities within the left lower leg). * Ankle XR: No acute osseous adenopathy. Chronic postoperative, degenerative and post traumatic changes as detailed above. * Knee XR: * There is a 6.1 x 1.1 cm heterogeneous masslike structure about the medial femoral condyle and medial tibial plateau. Margins are indistinct. Differential includes but is not limited to a fluid collection or mass. An MRI of the left knee with and without contrast is recommended. * There is a possible large osteochondroma along the posterior medial aspect of the left distal femur. Other etiologies are possible. Attention on follow-up MRI imaging. * No acute fracture or dislocation. * Severe narrowing of the patellofemoral joint. * Subtle bony irregularity along the medial cortex of the distal third of the left tibia. The finding is nonspecific. Attention follow-up MRI imaging. * There is a 1.2 x 2.3 cm probable osteophyte about the tibial spine. * MRI of L Knee: * Tricompartmental osteoarthritis at the left knee, moderate severity with high-grade lateral trochlear chondromalacia at the patellofemoral compartment and minimal to mild at the medial and lateral compartments. * Postoperative change at the left knee suggesting prior medial collateral ligament and medial patellofemoral retinaculum repairs with likely secondary heterotopic ossification as detailed above and as seen on prior knee radiographs. No lesion suspicious for malignancy or other acute osseous abnormality. 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 * Ortho consult, appreciate further recommendations * analgesics prn * PT/OT for decreased mobility and possible placement/rehab (2) Leg pain: Qualifiers: Laterality: left Qualified Code(s): M79.605 - Pain in left leg Code(s): M79.606 - Pain in leg, unspecified Status: Acute Assessment and Plan: * see above (3) Inability to walk: Code(s): R26.2 - Difficulty in walking, not elsewhere classified Status: Acute Assessment and Plan: * see work up above * PT/OT evaluation and treatment * may need care coordination for placement dependent on PT/OT assessment (4) Schizophrenia: Qualifiers: Schizophrenia type: unspecified Qualified Code(s): F20.9 - Schizophrenia, unspecified Code(s): F20.9 - Schizophrenia, unspecified Status: Chronic Assessment and Plan: * continue home medications (5) Bipolar 1 disorder: Code(s): F31.9 - Bipolar disorder, unspecified Status: Chronic Assessment and Plan: * continue home medications Plan Diet: Heart healthy GI Prophylaxis: n/a DVT Prophylaxis: Lovenox SQ IV fluids: None Lines/Tubes: Peripheral IV Code Status: Full code Subjective Date/time seen: 06/18/25 08:19 Interval history: 60 y/o F with PMH of bipolar 1 disorder, hyperlipidemia, and schizophrenia presents here with left calf pain. 06/18/2025 Patient sitting comfortably in bed at time of exam. Denies any chest pain or SOB at this time. Still has yet to work with PT/OT yet. Ortho consulted regarding findings of chondromalacia. She reports knee is feeling better and can flex the knee joint but has no been able to ambulate today. Pt otherwise stable and has no concerns. Review of Systems Review of Systems: All systems reviewed & are unremarkable except as noted in HPI and below Exam Const: General: comfortable and no acute distress Other: , female, nontoxic appearance HENMT: Face/Nose/Sinus: Normal nares present Mouth: Yes moist mucous membranes Eyes: General: appearance normal, both eyes and all related structures Sclera: sclerae normal Pupils: Equal, round and reactive pupils present EOM: EOMs intact bilaterally Resp: Effort & Inspection: normal respiratory effort Auscultation: clear to auscultation bilaterally Cardio: Rate: regular rate Rhythm: regular rhythm Other: S1-S2 present without murmur, rub, ectopy GI: Other: Abdomen soft, nondistended, nontender. Normoactive bowel sounds in all quadrants. Skin: General skin exam: normal color and no rashes or lesions noted Wounds: no wounds Neuro: Cranial nerves: Yes Equal, round and reactive pupils present Speech: normal speech Motor exam (neuro): 5/5 motor strength present throughout Sensory Exam: normal sensation Other: A&O x4 Extrem: Other: No edema, erythema, or grimace/particular facial expression with palpation. Reporting tenderness to the left posterior knee. Psych: Mental Status: mental status grossly normal Affect: normal affect Other: Fair insight and judgment. Objective Data Vital Signs Vital Signs: Vital Signs - 24 hr 06/17/25 11:09 06/17/25 22:00 06/18/25 06:00 Temperature 97.2 F L 97.9 F Pulse Rate 56 L 55 L Respiratory Rate 14 14 Blood Pressure 114/65 122/68 Pulse Oximetry 97 99 99 Oxygen Delivery Room Air Intake/Output Intake/Output: Intake & Output 06/15/25 06/16/25 06/17/25 06/18/25 23:59 23:59 23:59 23:59 Intake Total 720 350 Output Total 550 Balance 170 350 Meds/Results Medications: Active Medications Generic Name Dose Route Start Last Admin Trade Name Freq PRN Reason Stop Dose Admin Acetaminophen 650 mg 06/16/25 20:18 Acetaminophen 325 Mg Tablet PO Q6H PRN Mild Pain (1-3) or Fever Hydrocodone Bitart/Acetaminophen 1 tab 06/16/25 20:18 Hydrocodone/Acetaminophen (*Crx) 5-325 Mg Tablet PO Q6H PRN Pain Rated 4-6 Aripiprazole 5 mg 06/17/25 09:00 06/17/25 08:52 Aripiprazole 5 Mg Tablet PO 5 mg DAILY [facility] Administration Bupropion HCl 150 mg 06/17/25 09:00 06/17/25 08:52 Bupropion Hcl Xl (24 Hr) 150 Mg Tabcr PO 150 mg QAM [facility] Administration Celecoxib 200 mg 06/16/25 23:39 Celecoxib 200 Mg Capsule PO BID PRN pain Enoxaparin Sodium 40 mg 06/17/25 09:00 06/17/25 08:52 Enoxaparin 40 Mg/0.4 Ml Syringe SUB-Q 40 mg DAILY [facility] Administration Miscellaneous Information 1 each 06/16/25 00:01 Celecoxib Ordered Prn For Pain, Pain Scale 1-10 Is Already Covered, Please Clarify XX 07/16/25 00:00 CLARIFY [facility] Morphine Sulfate 2 mg 06/16/25 20:18 06/17/25 20:59 Morphine Sulfate (*Crx) 2 Mg/Ml Inj IV PUSH 2 mg Q4H PRN Administration Pain Rated 7-10 Radiology Results: ITS Impressions Venous Doppler Study 06/16/25 13:53 IMPRESSION: 1. No acute deep venous thrombosis. Findings within the left femoral vein (as detailed above) which may represent prior deep venous thrombosis at this level, for which clinical correlation with patient's history is needed. Tibia/Fibula X-Ray 06/16/25 14:13 IMPRESSION: Indeterminate findings within the mid shaft of the tibia and fibula (as detailed above) which may represent sequelae of prior injury or a bony lesion for which contrast enhanced MRI is nonemergent follow-up is recommended. Clinical correlation is also needed, regarding the indeterminate age of these findings (regarding a pertinent history of discrete fracture deformities within the left lower leg). Ankle X-Ray 06/16/25 15:38 IMPRESSION: 1. No acute osseous adenopathy. Chronic postoperative, degenerative and post traumatic changes as detailed above. Knee X-Ray 06/16/25 15:40 IMPRESSION: 1.There is a 6.1 x 1.1 cm heterogeneous masslike structure about the medial femoral condyle and medial tibial plateau. Margins are indistinct. Differential includes but is not limited to a fluid collection or mass. An MRI of the left knee with and without contrast is recommended. 2.There is a possible large osteochondroma along the posterior medial aspect of the left distal femur. Other etiologies are possible. Attention on follow-up MRI imaging. 3. No acute fracture or dislocation. 4. Severe narrowing of the patellofemoral joint. 5. Subtle bony irregularity along the medial cortex of the distal third of the left tibia. The finding is nonspecific. Attention follow-up MRI imaging. 6.There is a 1.2 x 2.3 cm probable osteophyte about the tibial spine. Knee MRI 06/17/25 16:08 IMPRESSION: 1. Tricompartmental osteoarthritis at the left knee, moderate severity with high-grade lateral trochlear chondromalacia at the patellofemoral compartment and minimal to mild at the medial and lateral compartments. 2. Postoperative change at the left knee suggesting prior medial collateral ligament and medial patellofemoral retinaculum repairs with likely secondary heterotopic ossification as detailed above and as seen on prior knee radiographs. No lesion suspicious for malignancy or other acute osseous abnormality. 3. 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 Lower Extremity MRI 06/17/25 16:08 IMPRESSION: 1. Tricompartmental osteoarthritis at the left knee, moderate severity with high-grade lateral trochlear chondromalacia at the patellofemoral compartment and minimal to mild at the medial and lateral compartments. 2. Postoperative change at the left knee suggesting prior medial collateral ligament and medial patellofemoral retinaculum repairs with likely secondary heterotopic ossification as detailed above and as seen on prior knee radiographs. No lesion suspicious for malignancy or other acute osseous abnormality. 3. 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 Quality VTE Prophylaxis VTE prophylaxis: pharmacologic ordered
[2025-06-18] MEDS: buPROPion HCL XL (24 HR) 150 MG TABCR PO (09:43)
[2025-06-18] MEDS: ENOXAPARIN 40 MG/0.4 ML SYRINGE SUB-Q (09:43)
--- NOTE | 2025-06-18 12:45 | PCPTNOTE ---
Ortho referral made to check out knee after MRI. Physical therapy will wait until ortho sees patient and evaluate as time allows.
[2025-06-18 14:00] VITALS: BP 116/85; PULSE 61; RESP 16; TEMP 36.1; O2SAT 100
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
[2025-06-18] MEDS: MORPHINE SULFATE (*CRX) 2 MG/ML INJ IV PUSH (20:28)
[2025-06-18 22:00] VITALS: BP 109/89; PULSE 94; RESP 18; TEMP 36.3; O2SAT 99
[2025-06-18 22:33] VITALS: O2SAT 99
[2025-06-18] MEDS: MELATONIN 5 MG TABLET PO (23:03)
[2025-06-19 06:00] VITALS: BP 110/79; PULSE 89; RESP 18; TEMP 36.4; O2SAT 100
--- NOTE | 2025-06-19 07:24 | P.PNIM_ITS ---
Progress Note: A&P Assessment and Plan (1) Knee pain: Qualifiers: Chronicity: acute Laterality: left Qualified Code(s): M25.562 - Pain in left knee Code(s): M25.569 - Pain in unspecified knee Status: Acute Assessment and Plan: * US LLE: * No acute deep venous thrombosis. Findings within the left femoral vein (as detailed above) which may represent prior deep venous thrombosis at this level, for which clinical correlation with patient's history is needed. * Tib/Fib XR: Indeterminate findings within the mid shaft of the tibia and fibula (as detailed above) which may represent sequelae of prior injury or a bony lesion for which contrast enhanced MRI is nonemergent follow-up is recommended. * Clinical correlation is also needed, regarding the indeterminate age of these findings (regarding a pertinent history of discrete fracture deformities within the left lower leg). * Ankle XR: No acute osseous adenopathy. Chronic postoperative, degenerative and post traumatic changes as detailed above. * Knee XR: * There is a 6.1 x 1.1 cm heterogeneous masslike structure about the medial femoral condyle and medial tibial plateau. Margins are indistinct. Differential includes but is not limited to a fluid collection or mass. An MRI of the left knee with and without contrast is recommended. * There is a possible large osteochondroma along the posterior medial aspect of the left distal femur. Other etiologies are possible. Attention on follow-up MRI imaging. * No acute fracture or dislocation. * Severe narrowing of the patellofemoral joint. * Subtle bony irregularity along the medial cortex of the distal third of the left tibia. The finding is nonspecific. Attention follow-up MRI imaging. * There is a 1.2 x 2.3 cm probable osteophyte about the tibial spine. * MRI of L Knee: * Tricompartmental osteoarthritis at the left knee, moderate severity with high-grade lateral trochlear chondromalacia at the patellofemoral compartment and minimal to mild at the medial and lateral compartments. * Postoperative change at the left knee suggesting prior medial collateral ligament and medial patellofemoral retinaculum repairs with likely secondary heterotopic ossification as detailed above and as seen on prior knee radiographs. No lesion suspicious for malignancy or other acute osseous abnormality. 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 * Ortho consult * Most likely calf strain related to traumatic degenerative changes of the knee joint * Recommend continued PT/OT with WBAT * No surgical indication at this time * analgesics prn * PT/OT for decreased mobility and possible placement/rehab * recommends SNF vs home health * Consult CC regarding placement (2) Leg pain: Qualifiers: Laterality: left Qualified Code(s): M79.605 - Pain in left leg Code(s): M79.606 - Pain in leg, unspecified Status: Acute Assessment and Plan: * see above (3) Inability to walk: Code(s): R26.2 - Difficulty in walking, not elsewhere classified Status: Acute Assessment and Plan: * see work up above * PT/OT evaluation and treatment * may need care coordination for placement dependent on PT/OT assessment (4) Schizophrenia: Qualifiers: Schizophrenia type: unspecified Qualified Code(s): F20.9 - Schizophrenia, unspecified Code(s): F20.9 - Schizophrenia, unspecified Status: Chronic Assessment and Plan: * continue home medications (5) Bipolar 1 disorder: Code(s): F31.9 - Bipolar disorder, unspecified Status: Chronic Assessment and Plan: * continue home medications Plan Diet: Heart healthy GI Prophylaxis: n/a DVT Prophylaxis: Lovenox SQ IV fluids: None Lines/Tubes: Peripheral IV Code Status: Full code Subjective Date/time seen: 06/19/25 07:24 Interval history: 60 y/o F with PMH of bipolar 1 disorder, hyperlipidemia, and schizophrenia presents here with left calf pain. 06/19/2025 Patient sitting comfortably in bed at time of exam. Seen by orthopedics yesterday - recommend continued PT/OT as pt likely experiencing calf strain 2/2 traumatic degenerative changes of the knee joint. Patient otherwise clinically stable at point. Working with care coordination regarding placement to SNF vs home health. Review of Systems Review of Systems: All systems reviewed & are unremarkable except as noted in HPI and below Exam Const: General: comfortable and no acute distress Other: , female, nontoxic appearance HENMT: Face/Nose/Sinus: Normal nares present Mouth: Yes moist mucous membranes Eyes: General: appearance normal, both eyes and all related structures Sclera: sclerae normal Pupils: Equal, round and reactive pupils present EOM: EOMs intact bilaterally Resp: Effort & Inspection: normal respiratory effort Auscultation: clear to auscultation bilaterally Cardio: Rate: regular rate Rhythm: regular rhythm Other: S1-S2 present without murmur, rub, ectopy GI: Other: Abdomen soft, nondistended, nontender. Normoactive bowel sounds in all quadrants. Skin: General skin exam: normal color and no rashes or lesions noted Wounds: no wounds Neuro: Cranial nerves: Yes Equal, round and reactive pupils present Speech: normal speech Motor exam (neuro): 5/5 motor strength present throughout Sensory Exam: normal sensation Other: A&O x4 Extrem: Other: No edema, erythema, or grimace/particular facial expression with palpation. Reporting tenderness to the left posterior knee. Psych: Mental Status: mental status grossly normal Affect: normal affect Other: Fair insight and judgment. Objective Data Vital Signs Vital Signs: Vital Signs - 24 hr 06/18/25 09:43 06/18/25 13:25 06/18/25 14:00 Temperature 96.9 F L Pulse Rate 61 Respiratory Rate 16 Blood Pressure 116/85 Pulse Oximetry 100 Oxygen Delivery Room Air Room Air 06/18/25 20:59 06/18/25 22:00 06/18/25 22:33 Temperature 97.4 F L Pulse Rate 94 Respiratory Rate 18 Blood Pressure 109/89 Pulse Oximetry 99 99 Oxygen Delivery Room Air Room Air 06/19/25 06:00 Temperature 97.6 F Pulse Rate 89 Respiratory Rate 18 Blood Pressure 110/79 Pulse Oximetry 100 Oxygen Delivery Intake/Output Intake/Output: Intake & Output 06/16/25 06/17/25 06/18/25 06/19/25 23:59 23:59 23:59 23:59 Intake Total 720 1292 200 Output Total 550 Balance 170 1292 200 Meds/Results Medications: Active Medications Generic Name Dose Route Start Last Admin Trade Name Freq PRN Reason Stop Dose Admin Acetaminophen 650 mg 06/16/25 20:18 Acetaminophen 325 Mg Tablet PO Q6H PRN Mild Pain (1-3) or Fever Hydrocodone Bitart/Acetaminophen 1 tab 06/16/25 20:18 Hydrocodone/Acetaminophen (*Crx) 5-325 Mg Tablet PO Q6H PRN Pain Rated 4-6 Aripiprazole 5 mg 06/17/25 09:00 06/18/25 09:43 Aripiprazole 5 Mg Tablet PO 5 mg DAILY PETEY Administration Bupropion HCl 150 mg 06/17/25 09:00 06/18/25 09:43 Bupropion Hcl Xl (24 Hr) 150 Mg Tabcr PO 150 mg QAM PETEY Administration Celecoxib 200 mg 06/16/25 23:39 Celecoxib 200 Mg Capsule PO BID PRN pain Enoxaparin Sodium 40 mg 06/17/25 09:00 06/18/25 09:43 Enoxaparin 40 Mg/0.4 Ml Syringe SUB-Q 40 mg DAILY PETEY Administration Melatonin 5 mg 06/18/25 22:45 06/18/25 23:03 Melatonin 5 Mg Tablet PO 5 mg HS PRN Administration Insomnia Morphine Sulfate 2 mg 06/16/25 20:18 06/18/25 20:28 Morphine Sulfate (*Crx) 2 Mg/Ml Inj IV PUSH 2 mg Q4H PRN Administration Pain Rated 7-10 Radiology Results: ITS Impressions Venous Doppler Study 06/16/25 13:53 IMPRESSION: 1. No acute deep venous thrombosis. Findings within the left femoral vein (as detailed above) which may represent prior deep venous thrombosis at this level, for which clinical correlation with patient's history is needed. Tibia/Fibula X-Ray 06/16/25 14:13 IMPRESSION: Indeterminate findings within the mid shaft of the tibia and fibula (as detailed above) which may represent sequelae of prior injury or a bony lesion for which contrast enhanced MRI is nonemergent follow-up is recommended. Clinical correlation is also needed, regarding the indeterminate age of these findings (regarding a pertinent history of discrete fracture deformities within the left lower leg). Ankle X-Ray 06/16/25 15:38 IMPRESSION: 1. No acute osseous adenopathy. Chronic postoperative, degenerative and post traumatic changes as detailed above. Knee X-Ray 06/16/25 15:40 IMPRESSION: 1.There is a 6.1 x 1.1 cm heterogeneous masslike structure about the medial femoral condyle and medial tibial plateau. Margins are indistinct. Differential includes but is not limited to a fluid collection or mass. An MRI of the left knee with and without contrast is recommended. 2.There is a possible large osteochondroma along the posterior medial aspect of the left distal femur. Other etiologies are possible. Attention on follow-up MRI imaging. 3. No acute fracture or dislocation. 4. Severe narrowing of the patellofemoral joint. 5. Subtle bony irregularity along the medial cortex of the distal third of the left tibia. The finding is nonspecific. Attention follow-up MRI imaging. 6.There is a 1.2 x 2.3 cm probable osteophyte about the tibial spine. Knee MRI 06/17/25 16:08 IMPRESSION: 1. Tricompartmental osteoarthritis at the left knee, moderate severity with high-grade lateral trochlear chondromalacia at the patellofemoral compartment and minimal to mild at the medial and lateral compartments. 2. Postoperative change at the left knee suggesting prior medial collateral ligament and medial patellofemoral retinaculum repairs with likely secondary heterotopic ossification as detailed above and as seen on prior knee radiographs. No lesion suspicious for malignancy or other acute osseous abnormality. 3. 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 Lower Extremity MRI 06/17/25 16:08 IMPRESSION: 1. Tricompartmental osteoarthritis at the left knee, moderate severity with high-grade lateral trochlear chondromalacia at the patellofemoral compartment and minimal to mild at the medial and lateral compartments. 2. Postoperative change at the left knee suggesting prior medial collateral ligament and medial patellofemoral retinaculum repairs with likely secondary heterotopic ossification as detailed above and as seen on prior knee radiographs. No lesion suspicious for malignancy or other acute osseous abnormality. 3. 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 Quality VTE Prophylaxis VTE prophylaxis: pharmacologic ordered
[2025-06-19] MEDS: buPROPion HCL XL (24 HR) 150 MG TABCR PO (09:12)
[2025-06-19] MEDS: ENOXAPARIN 40 MG/0.4 ML SYRINGE SUB-Q (09:12)
[2025-06-19] MEDS: HYDROcodone/acetaminophen (*CRX) 5-325 MG TABLET 1 TAB PO ×2 (11:37→17:33)
[2025-06-19 14:00] VITALS: BP 100/57; PULSE 84; RESP 18; TEMP 36.5; O2SAT 98
[2025-06-19] MEDS: CELECOXIB 200 MG CAPSULE PO (20:55)
[2025-06-19 22:00] VITALS: BP 100/59; PULSE 67; RESP 18; TEMP 36.9; O2SAT 95
[2025-06-20] VITALS: BP 111/74; PULSE 63; RESP 18; TEMP 36.8; O2SAT 95
[2025-06-20 06:00] VITALS: BP 102/58; PULSE 60; RESP 18; TEMP 36.7; O2SAT 98
[2025-06-20 08:37] LABS: Hematocrit 40.3 % (37.0-47.0); Hemoglobin 13.5 g/dL (12.0-15.0); Immature Granulocyte Percent A 0.3 % (0-0.5); Lymphocytes Absolute Auto 1.41 K/mm3 (0.9-3.2); Mean Corpuscular HGB Conc 33.5 g/dl (32-36); Mean Corpuscular Hemoglobin 29.9 pg (26-34); Mean Corpuscular Volume 89.2 fl (80-100); Nucleated Red Blood Cells Absolute Auto 0.000 K/mm3 (0.0-0.012); Nucleated Red Blood Cells Perc 0.0 % (0.0-0.2); Platelet Count Result 294 k/mm3 (150-375); Red Blood Count 4.52 M/mm3 (4.2-5.4); White Blood Count 6.1 K/mm3 (4.5-10.0)
[2025-06-20] MEDS: ENOXAPARIN 40 MG/0.4 ML SYRINGE SUB-Q (08:39)
[2025-06-20] MEDS: buPROPion HCL XL (24 HR) 150 MG TABCR PO (08:39)
[2025-06-20 08:58] LABS: Alanine Aminotransferase 18 U/L (6-35); Albumin Level 4.0 g/dL (3.5-5.1); Alkaline Phosphatase 90 U/L (38-126); Anion Gap 9 mmol/L (4-12); Aspartate Amino Transferase 24 U/L (14-36); Bilirubin,Total 0.4 mg/dL (0.2-1.3); Blood Urea Nitrogen 20 mg/dL (7-17); Calcium 9.2 mg/dL (8.4-10.2); Carbon Dioxide 23 mmol/L (22-30); Chloride 105 mmol/L (98-107); Estimated CRCL calculation 85 ml/min; Estimated Glomerular Filt Rate > 60; Glucose 107 mg/dL (65-110); Potassium 4.0 mmol/L (3.4-5.0); Sodium 137 mmol/L (137-145); Total Protein 6.9 g/dL (6.3-8.2)
--- NOTE | 2025-06-20 10:37 | P.PNIM_ITS ---
Progress Note: A&P Assessment and Plan (1) Knee pain: Qualifiers: Chronicity: acute Laterality: left Qualified Code(s): M25.562 - Pain in left knee Code(s): M25.569 - Pain in unspecified knee Status: Acute Assessment and Plan: * US LLE: * No acute deep venous thrombosis. Findings within the left femoral vein (as detailed above) which may represent prior deep venous thrombosis at this level, for which clinical correlation with patient's history is needed. * Tib/Fib XR: Indeterminate findings within the mid shaft of the tibia and fibula (as detailed above) which may represent sequelae of prior injury or a bony lesion for which contrast enhanced MRI is nonemergent follow-up is recommended. * Clinical correlation is also needed, regarding the indeterminate age of these findings (regarding a pertinent history of discrete fracture deformities within the left lower leg). * Ankle XR: No acute osseous adenopathy. Chronic postoperative, degenerative and post traumatic changes as detailed above. * Knee XR: * There is a 6.1 x 1.1 cm heterogeneous masslike structure about the medial femoral condyle and medial tibial plateau. Margins are indistinct. Differential includes but is not limited to a fluid collection or mass. An MRI of the left knee with and without contrast is recommended. * There is a possible large osteochondroma along the posterior medial aspect of the left distal femur. Other etiologies are possible. Attention on follow-up MRI imaging. * No acute fracture or dislocation. * Severe narrowing of the patellofemoral joint. * Subtle bony irregularity along the medial cortex of the distal third of the left tibia. The finding is nonspecific. Attention follow-up MRI imaging. * There is a 1.2 x 2.3 cm probable osteophyte about the tibial spine. * MRI of L Knee: * Tricompartmental osteoarthritis at the left knee, moderate severity with high-grade lateral trochlear chondromalacia at the patellofemoral compartment and minimal to mild at the medial and lateral compartments. * Postoperative change at the left knee suggesting prior medial collateral ligament and medial patellofemoral retinaculum repairs with likely secondary heterotopic ossification as detailed above and as seen on prior knee radiographs. No lesion suspicious for malignancy or other acute osseous abnormality. 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 * Ortho consult * Most likely calf strain related to traumatic degenerative changes of the knee joint * Recommend continued PT/OT with WBAT * No surgical indication at this time * analgesics prn * PT/OT for decreased mobility and possible placement/rehab * recommends SNF vs home health * Referrals have been sent - pending acceptance (2) Leg pain: Qualifiers: Laterality: left Qualified Code(s): M79.605 - Pain in left leg Code(s): M79.606 - Pain in leg, unspecified Status: Acute Assessment and Plan: * see above (3) Inability to walk: Code(s): R26.2 - Difficulty in walking, not elsewhere classified Status: Acute Assessment and Plan: * see work up above * PT/OT evaluation and treatment * may need care coordination for placement dependent on PT/OT assessment (4) Schizophrenia: Qualifiers: Schizophrenia type: unspecified Qualified Code(s): F20.9 - Schizophrenia, unspecified Code(s): F20.9 - Schizophrenia, unspecified Status: Chronic Assessment and Plan: * continue home medications (5) Bipolar 1 disorder: Code(s): F31.9 - Bipolar disorder, unspecified Status: Chronic Assessment and Plan: * continue home medications Plan Diet: Heart healthy GI Prophylaxis: n/a DVT Prophylaxis: Lovenox SQ IV fluids: None Lines/Tubes: Peripheral IV Code Status: Full code Subjective Date/time seen: 06/20/25 10:37 Interval history: 60 y/o F with PMH of bipolar 1 disorder, hyperlipidemia, and schizophrenia presents here with left calf pain. 06/20/2025 Patient sitting comfortably in bed at time of exam. No acute overnight events. Continue PT/OT. Patient otherwise clinically stable at point. Working with care coordination regarding placement to SNF vs home health - referrals have been sent, pending acceptance. Review of Systems Review of Systems: All systems reviewed & are unremarkable except as noted in HPI and below Exam Const: General: comfortable and no acute distress Other: , female, nontoxic appearance HENMT: Face/Nose/Sinus: Normal nares present Mouth: Yes moist mucous membranes Eyes: General: appearance normal, both eyes and all related structures Sclera: sclerae normal Pupils: Equal, round and reactive pupils present EOM: EOMs intact bilaterally Resp: Effort & Inspection: normal respiratory effort Auscultation: clear to auscultation bilaterally Cardio: Rate: regular rate Rhythm: regular rhythm Other: S1-S2 present without murmur, rub, ectopy GI: Other: Abdomen soft, nondistended, nontender. Normoactive bowel sounds in all quadrants. Skin: General skin exam: normal color and no rashes or lesions noted Wounds: no wounds Neuro: Cranial nerves: Yes Equal, round and reactive pupils present Speech: normal speech Motor exam (neuro): 5/5 motor strength present throughout Sensory Exam: normal sensation Other: A&O x4 Extrem: Other: No edema, erythema, or grimace/particular facial expression with palpation. Reporting tenderness to the left posterior knee. Psych: Mental Status: mental status grossly normal Affect: normal affect Other: Fair insight and judgment. Objective Data Vital Signs Vital Signs: Vital Signs - 24 hr 06/19/25 14:00 06/19/25 22:00 06/20/25 00:00 Temperature 97.7 F 98.5 F 98.2 F Pulse Rate 84 67 63 Respiratory Rate 18 18 18 Blood Pressure 100/57 L 100/59 L 111/74 Pulse Oximetry 98 95 95 Oxygen Delivery 06/20/25 06:00 06/20/25 08:18 Temperature 98.0 F Pulse Rate 60 Respiratory Rate 18 Blood Pressure 102/58 L Pulse Oximetry 98 Oxygen Delivery Room Air Intake/Output Intake/Output: Intake & Output 06/17/25 06/18/25 06/19/25 06/20/25 23:59 23:59 23:59 23:59 Intake Total 720 1292 920 240 Output Total 550 300 Balance 170 1292 620 240 Meds/Results Medications: Active Medications Generic Name Dose Route Start Last Admin Trade Name Freq PRN Reason Stop Dose Admin Acetaminophen 650 mg 06/16/25 20:18 Acetaminophen 325 Mg Tablet PO Q6H PRN Mild Pain (1-3) or Fever Hydrocodone Bitart/Acetaminophen 1 tab 06/16/25 20:18 06/19/25 17:33 Hydrocodone/Acetaminophen (*Crx) 5-325 Mg Tablet PO 1 tab Q6H PRN Administration Pain Rated 4-6 Aripiprazole 5 mg 06/17/25 09:00 06/20/25 08:39 Aripiprazole 5 Mg Tablet PO 5 mg DAILY PETEY Administration Bupropion HCl 150 mg 06/17/25 09:00 06/20/25 08:39 Bupropion Hcl Xl (24 Hr) 150 Mg Tabcr PO 150 mg QAM PETEY Administration Celecoxib 200 mg 06/16/25 23:39 06/19/25 20:55 Celecoxib 200 Mg Capsule PO 200 mg BID PRN Administration pain Enoxaparin Sodium 40 mg 06/17/25 09:00 06/20/25 08:39 Enoxaparin 40 Mg/0.4 Ml Syringe SUB-Q 40 mg DAILY PETEY Administration Melatonin 5 mg 06/18/25 22:45 06/18/25 23:03 Melatonin 5 Mg Tablet PO 5 mg HS PRN Administration Insomnia Morphine Sulfate 2 mg 06/16/25 20:18 06/18/25 20:28 Morphine Sulfate (*Crx) 2 Mg/Ml Inj IV PUSH 2 mg Q4H PRN Administration Pain Rated 7-10 Radiology Results: ITS Impressions Venous Doppler Study 06/16/25 13:53 IMPRESSION: 1. No acute deep venous thrombosis. Findings within the left femoral vein (as detailed above) which may represent prior deep venous thrombosis at this level, for which clinical correlation with patient's history is needed. Tibia/Fibula X-Ray 06/16/25 14:13 IMPRESSION: Indeterminate findings within the mid shaft of the tibia and fibula (as detailed above) which may represent sequelae of prior injury or a bony lesion for which contrast enhanced MRI is nonemergent follow-up is recommended. Clinical correlation is also needed, regarding the indeterminate age of these fi ndings (regarding a pertinent history of discrete fracture deformities within the left lower leg). Ankle X-Ray 06/16/25 15:38 IMPRESSION: 1. No acute osseous adenopathy. Chronic postoperative, degenerative and post traumatic changes as detailed above. Knee X-Ray 06/16/25 15:40 IMPRESSION: 1.There is a 6.1 x 1.1 cm heterogeneous masslike structure about the medial femoral condyle and medial tibial plateau. Margins are indistinct. Differential includes but is not limited to a fluid collection or mass. An MRI of the left knee with and without contrast is recommended. 2.There is a possible large osteochondroma along the posterior medial aspect of the left distal femur. Other etiologies are possible. Attention on follow-up MRI imaging. 3. No acute fracture or dislocation. 4. Severe narrowing of the patellofemoral joint. 5. Subtle bony irregularity along the medial cortex of the distal third of the left tibia. The finding is nonspecific. Attention follow-up MRI imaging. 6.There is a 1.2 x 2.3 cm probable osteophyte about the tibial spine. Knee MRI 06/17/25 16:08 IMPRESSION: 1. Tricompartmental osteoarthritis at the left knee, moderate severity with high-grade lateral trochlear chondromalacia at the patellofemoral compartment and minimal to mild at the medial and lateral compartments. 2. Postoperative change at the left knee suggesting prior medial collateral ligament and medial patellofemoral retinaculum repairs with likely secondary heterotopic ossification as detailed above and as seen on prior knee radiographs. No lesion suspicious for malignancy or other acute osseous abnormality. 3. 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 Lower Extremity MRI 06/17/25 16:08 IMPRESSION: 1. Tricompartmental osteoarthritis at the left knee, moderate severity with high-grade lateral trochlear chondromalacia at the patellofemoral compartment and minimal to mild at the medial and lateral compartments. 2. Postoperative change at the left knee suggesting prior medial collateral ligament and medial patellofemoral retinaculum repairs with likely secondary heterotopic ossification as detailed above and as seen on prior knee radiographs. No lesion suspicious for malignancy or other acute osseous abnormality. 3. 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 Labs Labs: Laboratory Results - last 24 hr 06/20/25 08:24 WBC 6.1 RBC 4.52 Hgb 13.5 Hct 40.3 MCV 89.2 MCH 29.9 MCHC 33.5 RDW 12.6 Plt Count 294 MPV 9.0 Immature Gran % (Auto) 0.3 Neut % (Auto) 68.6 Lymph % (Auto) 23.0 [place] % (Auto) 5.1 Eos % (Auto) 2.5 Baso % (Auto) 0.5 Lymph # (Auto) 1.41 [place] # (Auto) 0.3 Eos # (Auto) 0.2 Baso # (Auto) 0.0 Abs Immat Gran (auto) 0.02 Absolute Neuts (auto) 4.2 Absolute Nucleated RBC 0.000 Nucleated RBC % 0.0 Sodium 137 Potassium 4.0 Chloride 105 Carbon Dioxide 23 Anion Gap 9 BUN 20 H Creatinine 0.77 Estim Creat Clear Calc 85 Estimated GFR > 60 Glucose 107 Calcium 9.2 Total Bilirubin 0.4 AST 24 ALT 18 Alkaline Phosphatase 90 Total Protein 6.9 Albumin 4.0 Quality VTE Prophylaxis VTE prophylaxis: pharmacologic ordered
[2025-06-20 14:00] VITALS: BP 101/64; PULSE 90; RESP 18; TEMP 36.7; O2SAT 99
[2025-06-20] MEDS: HYDROcodone/acetaminophen (*CRX) 5-325 MG TABLET 1 TAB PO (17:53)
[2025-06-20 21:08] VITALS: BP 96/63; PULSE 65; RESP 16; TEMP 36.6; O2SAT 97
[2025-06-20] MEDS: MELATONIN 5 MG TABLET PO (21:22)
[2025-06-21] MEDS: HYDROcodone/acetaminophen (*CRX) 5-325 MG TABLET 1 TAB PO ×3 (02:24→14:11)
[2025-06-21 06:00] VITALS: BP 113/73; PULSE 68; RESP 16; TEMP 36.6; O2SAT 96
[2025-06-21] MEDS: ENOXAPARIN 40 MG/0.4 ML SYRINGE SUB-Q (08:14)
[2025-06-21] MEDS: buPROPion HCL XL (24 HR) 150 MG TABCR PO (08:14)
[2025-06-21] MEDS: CELECOXIB 200 MG CAPSULE PO ×2 (09:37→17:45)
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
[2025-06-21 14:00] VITALS: BP 115/93; PULSE 72; RESP 18; TEMP 36.2; O2SAT 98
== END 2025-06-21 19:06 | DRG 554 ==
LOC: ANHED 18:09 → ANH3MEDSUR 19:23
PROVIDERS: Student in an Organized Health Care Education/Training Program; Admitting Provider General Practice; Emergency Provider Emergency Medicine; PCP Family Medicine; Visit Provider Physician Assistant
DX: M12.562 Traumatic arthropathy, left knee (principal); S86.812A Strain of other muscle(s) and tendon(s) at lower leg level, left leg, initial encounter; R26.2 Difficulty in walking, not elsewhere classified; G89.29 Other chronic pain; E78.5 Hyperlipidemia, unspecified; M54.10 Radiculopathy, site unspecified; F31.9 Bipolar disorder, unspecified; F20.9 Schizophrenia, unspecified; S87.82XS Crushing injury of left lower leg, sequela; V89.2XXS Person injured in unspecified motor-vehicle accident, traffic, sequela; Z87.891 Personal history of nicotine dependence
CPT/HCPCS: 36415; 73562; 73590; 73610; 73720; 73723; 80048; 80053; 85025; 85027; 93971; 96372; 97110; 97116; 97161; 97165; 97530; 97535; 99285; A9270; A9577; J1171; J1650; J1885; J2060; J2270

== ENCOUNTER 2025-10-25 03:13 | Emergency (ER) | payer MEDICARE, MEDICAID, SELFPAY ==
--- NOTE | ~2025-10-25 | XR_ITS ---
Examination: XR shoulder LT min 2V Clinical History: L shoulder injury, pulling a heavy basket up steps Comparison: None Technique: 4 views left shoulder Findings/impression: 1. No acute fracture or dislocation left shoulder. 2. Moderate degenerative changes along inferior glenohumeral joint with marginal osteophytes along glenoid and humeral head lesser tubercle. Reviewed, dictated and finalized at location R. R PHOTOVOLTAIC ELECTRICIAN
--- OUTSIDE RECORDS SUMMARY | 2025-10-25 03:15 | XMS_ITS | Clinical Summary ---
Author Organization [facility] Address [address] [place] [id number] Care Team Providers Care Neurobiologist Name Role Phone Melani Benton Primary Care Provider [phone] Social History Tobacco Use Types Packs/Day Years [...] 50+ Ye ars (2 of 2 - PCV20 or PCV21) 06/17/2018 06/17/2017 COVID-19 Vaccine (1 - 2024-2 6 season) 2025 Influenza Adult (#1) 2025 07/28/2017 Hepatitis A Vaccines Aged Out No long er eligible based [...] age to complete this topic Care Teams Neurobiologist Relationship Specialty Start Date End Date Melani Benton FNP [address] [place] [address] PCP - General 01/22/17
--- OUTSIDE RECORDS SUMMARY | 2025-10-25 03:16 | XMS_ITS | Clinical Summary ---
Author Organization [facility] [address] [place] Address [address] [place] [id number] Care Team Providers Care Biopsychologist Name Role Phone Kaycee Marie MD Primary Care Provider [phone] Allergies Active Allergy Reactions Criticality Noted Date Comments Hydrocodone-Acetaminophen Mental status changes Low 04/13/2024 Medications buPROPion XL (WELLBUTRIN XL) 150 mg 24 hr tablet Take 1 tablet (150 mg total) by mouth every morning Active multivit,Ca,iron-F M-sgcite-mgu [phone] oq-max-mzv-mcg tablet Take 1 tablet by mouth every morning Active traMADoL (ULTRAM) 50 mg tabletIndications: Pain Take 1 tablet (50 mg total) by mouth as needed for pain Active ARIPiprazole (ABILIFY) 5 mg tablet Take 1 tablet (5 mg total) by mouth every morning 10/25/20 24 Active polyethylene glycol (MIRALAX) 17 gram/dose bulk powder Take 17 g by mouth daily as needed (constipation) 578 g 12/16/19 25 Active docusate sodium (COLACE) 100 mg capsuleIndications :constipation Take 1 capsule (100 mg total) by mouth 2 (two) times a day 60 capsule 2 12/16/19 25 Active Additional Information Patient not taking.Reported on 10/12/2025 estradioL (ESTRACE) 0.01 % (0.1 mg/gram) vaginal cream Apply 1 gram nightly to vagina for 1 week, then Friday/ y/ Friday 42.5 g 11 12/16/19 25 Active Additional Information Patient not taking.Reported on 10/12/2025 ibuprofen (ADVIL,MOTRIN) 800 mg tablet Take 1 tablet (800 mg total) by mouth every 8 (eight) hours 30 tablet 12/16/19 25 Active ondansetron ODT (ZOFRAN-ODT) 4 mg disintegrating tablet Take 1 tablet (4 mg total) by mouth every 8 (eight) hours as needed for nausea or vomiting 3 tablet 12/16/19 25 Active acetaminophen (TYLENOL) 325 mg tablet Take 2 tablets (650 mg total) by mouth every 6 (six) hours as needed for pain 30 tablet 12/16/19 25 Active Hospital, Clinic, or Other Facility Administered Medication Ordered Dose Route Frequency Start Date End Date Status BUPivacaine HCl (MARCAINE) 0.25 % (2.5 mg/mL) injection 6 mLIndications:Primar y osteoarthritis of left knee,Chronic pain of left knee 6 mL intra-artic One-Time Injection 10/12/2025 5 Ended triamcinolone (KENALOG) 40 mg/mL injection 80 mgIndications:Primar y osteoarthritis of left knee,Chronic pain of left knee 80 mg intra-artic One-Time Injection 10/12/2025 5 Ended Active Problems Problem Noted Date Diagnosed Date Primary osteoarthritis of left knee 10/12/2025 Vaginal prolapse 11/02/2024 Rectocele 10/05/2024 Cystocele, midline 10/05/2024 Vaginal enterocele 10/05/2024 Chronic idiopathic constipation 10/05/2024 S/P reverse total shoulder arthroplasty, right 0 04/12/2024 Nontraumatic complete tear of right rotator cuff 08/28/2023 Allergic arthritis of shoulder region, right Bicipital tendinitis of right shoulder 3 Right foot pain 12/05/2017 Ankle pain 05/01/2017 Arthralgia of hip 08/26/2013 Encounters Date Type Department Care Team Description 10/21/2025 Documentation [facility] Medicine Orthopaedic Surgery [address] [place] [address] [address] [place] [phone] Belgica Oneill RN 10/12/2025 12:40 PM MANAGER UTILITIES Office Visit [facility] Medicine Orthopaedic Surgery [address] [place] [address] 4 [address] [place] [address] Malik Chan MD Left knee pain, unspecified chronicity (Primary Dx); Primary osteoarthritis of left knee; Chronic pain of left knee 10/12/2025 12:15 PM MANAGER UTILITIES - 10/12/2025 11:59 PM MANAGER UTILITIES Hospital Encounter [facility] [address] [facility] [address] [place] [address] Left knee pain, unspecified chronicity Discharge Disposition: Discharge to home or self care from Last 3 Months Immunizations Immunization Administration Dates Next Due Influenza, [...] Tobacco: Never Tobacco Cessation:Counseling Given: Not Answered [place] Utilities Answer Date Recorded In the past 12 months has [employer], gas, oil, or water company threatened to [...] week 04/13/2024 How often do you attend [facility] or alevism services? Never 04/13/2024 Do you belong to any clubs o r organizations such as pentecostalism groups, unions, fraternal or athletic groups, or [...] any time in the past 12 m [facility], were you homeless or living in a custodial (including now)? No 04/13/2024 Personal Safety Answer Date Recorded Have you ever been in or are you currently in a harmful physical or emotional relationship or is someone making you feel afraid or unsafe? Denies 12/16/2024 Comments No Sex and Gender Information Value Date Recorded Sex Assigned at Not on file Legal Sex Female 9:01 PM MANAGER UTILITIES Gender Identity Not on file Sexual Orientation Not on file Obstetrics History Para Term AB IAB SAB Ectopic Multiple Livin g Live Births 0 0 0 0 0 0 0 0 0 0 0 Last Filed Vital Signs Vital Sign Reading Time Taken Comments Blood Pressure 131/80 12/16/2024 2:30 PM MANAGER UTILITIES Pulse 68 12/16/2024 2:30 PM MANAGER UTILITIES Temperature 36.5 C (97.7 F) 12/16/2024 1:35 PM MANAGER UTILITIES Respiratory Rate 12 12/16/2024 2:30 PM MANAGER UTILITIES Oxygen Saturation 97% 12/16/2024 2:30 PM MANAGER UTILITIES Inhaled Oxygen Concentration - - Weight 95.3 kg (210 lb 1.6 oz) 12/16/2024 9:29 A M MANAGER UTILITIES Height 167.6 cm (5' 6) 11/24/2024 4:39 PM MANAGER UTILITIES Body Mass Index 33.91 11/24/2024 4:39 PM MANAGER UTILITIES Plan of Treatment Upcoming Encounters Date Type Department Care Team (Late st Contact Info) Description 03/30/2026 Hospital Encounter [facility] Operating Room [address] [address] Malik Chan MD [address] [place] [address] Scheduled Procedures Name Priority Associated Diagnoses Date/Ti me ARTHROPLASTY TOTAL KNEE - DEPUY Primary osteoarthritis of left knee Health Maintenance Due Date Last Done Comments Colon Cancer Screening-Colonoscopy 1967 Depression Screening 1967 Hepatitis C Screening 1967 DTaP/Tdap/Td Vaccine (1 - Tdap) 1978 Hepatitis B Screening 1985 Zoster Vaccine (3 of 3) 11/26/2018 10/01/2018, 07/28 Influenza Vaccine (#1) 2025 2, 07/16/2021, 07/11/2020, Additional history exists Regular Well Visit/Exam 18-64 10/05/2025 10/05/2024, 12/23/2019 Breast Cancer Screening-Mammogram 11/24/2025 11/24/2024 Pneumococcal vaccine <65 Aged Out 06/17/2017 No longer eligible based on patient's age to complete this topic Medical Devices Implanted Type Area Registration Representative Device Identifier Shelf Expiration Date Model / Serial / Lot Metal Bilateral: Foot [employer] Arthrex 24mm Modular Shoulder +4mm Baseplate Glenoid Sterile Bd-[id number] - [id number] Implanted:Qty: 1 on 04/12/2024 by Malik Leavitt MD at [facility] Right: Shoulder [employer] Inc [id number] 11/02/2028 AR-9560-2 4-4 / / [id number] Ar[employer]rex Inc [facility] Shoulder 8 Stem Humeral Ar-9501-08s - [id number] Implanted:Qty: 1 on 04/12/2024 by Malik Leavitt MD at [facility] Right: Shoulder [employer] Inc [id number] 04/02/2028 AR-9501-0 8S / / [id number] Ar[employer]rex Inc Arthrex 25mm Central Modular Shoulder Screw Baseplate Sterile Ar-9561-25s - [id number] Implanted:Qty: 1 on 04/12/2024 by Malik Leavitt MD at [facility] Right: Shoulder [employer] Inc [id number] 11/02/2027 AR-9561-2 5S / / [id number] Ar[employer]rex Inc 36mm 24 Baseplate Taper Sphere Glenoid Rx-[id number] - [id number] Implanted:Qty: 1 on 04/12/2024 by Malik Leavitt MD at [facility] Right: Shoulder [employer] Inc [id number] 06/02/2028 AR-9564-2 436 / / [id number] Ar[employer]rex Inc 4.5mm 32mm Peripheral Screw Bone Sterile St-[id number] - [id number] Implanted:Qty: 1 on 04/12/2024 by Malik Leavitt MD at [facility] Right: Shoulder [employer] Inc [id number] 09/02/2028 AR-9562-3 2NL / / [id number] Ar[employer]rex Inc 4.5mm 32mm Peripheral Screw Bone Sterile Lb-[id number] - [id number] Implanted:Qty: 1 on 04/12/2024 by Malik Leavitt MD at [facility] Right: Shoulder [employer] Inc [id number] 09/02/2028 AR-9562-3 2NL / / [id number] Ar[employer] Inc Screw Glenoid Locking Reverse Univers Revers 5.5x20mm Titanium Ar-9563-20 - [id number] Implanted:Qty: 1 on 04/12/2024 by Malik Leavitt MD at [facility] Right: Shoulder [employer] Inc [id number] 11/02/2028 AR-9563-2 0 / / [id number] [employer] Inc Screw Glenoid Locking Reverse Univers Revers 5.5x20mm Titanium Ar-9563-20 - [id number] Implanted:Qty: 1 on 04/12/2024 by Malik Leavitt MD at [facility] Right: Shoulder [employer] [id number] 11/02/2028 AR-9563-2 0 / / [id number] Ar[employer] Inc Arthrex Univers Revers 36mm Suture Cup Humeral Sterile Latex Free Hl-[id number]-[id number] - [id number] Implanted:Qty: 1 on 04/12/2024 by Malik Leavitt MD at [facility] Right: Shoulder [employer] Inc [id number] 11/02/2028 AR-9502F- 36CPC / / [id number] Ar[employer]rex Inc Univers Revers 36mm Shoulder +3mm Small Insert Humeral Sterile Ar-9503s-03 - [id number] Implanted:Qty: 1 on 04/12/2024 by Malik Leavitt MD at [facility] Right: Shoulder [employer] Inc [id number] 09/02/2028 AR-9503S- 03 / / [id number] Procedures Procedure Name Priority Date/Time Associated Diagnosis Comments XR KNEE LEFT 4 OR MORE VIEWS Schedule Routine, Read Routine (OP Routine) 10/12/2025 1:06 PM MANAGER UTILITIES Left knee pain, unspecified chronicity [place] ARTHROCENTESIS ASPIR&/INJ MAJOR JT/BURSA W/O US Routine 10/12/2025 12:40 PM MANAGER UTILITIES Primary osteoarthritis of left knee Chronic pain of left knee SCREENING MAMMOGRAM Schedule Routine, Read Routine (OP Routine) 11/24/2024 7:51 AM MANAGER UTILITIES from Last 3 Months or Most Recently Relevant to Health Maintenance Results * XR Knee Left 4 or More Views (10/12/2025 1:06 PM MANAGER UTILITIES) Anatomical Region Laterality Modality Lower Extremities, Knee Left Computed Radiography 10/12/2025 1:33 PM MANAGER UTILITIES Impressions 10/12/2025 3:28 PM MANAGER UTILITIES 1. Moderate lateral compartment predominant tricompartmental left knee osteoarthritis. 2. Significant heterotopic ossification formation at the anterolateral aspect of the tibia, posterior femur, and along the medial collateral ligament which seen with an old fibular fracture can be seen in a posttraumatic setting. Dictated by: Elliot Kay M.D. The radiology attending physician has personally reviewed this study, and had reviewed and/or edited this written report and agrees with it. Electronically signed by: Beto Keen M.D. Narrative 10/12/2025 3:28 PM MANAGER UTILITIES EXAMINATION: XR KNEE LEFT 4 OR MORE VIEWS HISTORY: left knee pain COMPARISON: No prior images are available for comparison. FINDINGS: 4 radiographs of the left knee are submitted for interpretation. Normal alignment. No acute fracture or dislocation. Moderate lateral compartment predominant tricompartmental left knee osteoarthritis. There is significant heterotopic ossification formation at the anterolateral aspect of the tibia, posterior femur, and along the medial collateral ligament. No knee joint effusion. Partially imaged fracture deformity of the left fibular mid shaft with synostosis formation. Procedure Note Beto Keen MD PhD - 10/12/2025 EXAMINATION: XR KNEE LEFT 4 OR MORE VIEWS HISTORY: left knee pain COMPARISON: No prior images are available for comparison. FINDINGS: 4 radiographs of the left knee are submitted for interpretation. Normal alignment. No acute fracture or dislocation. Moderate lateral compartment predominant tricompartmental left knee osteoarthritis. There is significant heterotopic ossification formation at the anterolateral aspect of the tibia, posterior femur, and along the medial collateral ligament. No knee joint effusion. Partially imaged fracture deformity of the left fibular mid shaft with synostosis formation. IMPRESSION: 1. Moderate lateral compartment predominant tricompartmental left knee osteoarthritis. 2. Significant heterotopic ossification formation at the anterolateral aspect of the tibia, posterior femur, and along the medial collateral ligament which seen with an old fibular fracture can be seen in a posttraumatic setting. Dictated by: Elliot Kay M.D. The radiology attending physician has personally reviewed this study, and had reviewed and/or edited this written report and agrees with it. Electronically signed by: Beto Keen M.D. us Malik Chan MD IMG XR PROCEDURES Final R esult * TX ARTHROCENTESIS ASPIR&/INJ MAJOR JT/BURSA W/O US (10/12/2025 12:40 PM MANAGER UTILITIES) Narrative Malik Chan MD - 10/12/2025 12:40 PM MANAGER UTILITIES Malik Chan MD 10/16/2025 11:54 PM Large Joint Injection: L knee Performed by: Malik Chan MD Authorized by: Malik Chan MD Large Joint Injection/Aspiration: Consent Given by: Patient Timeout: prior to procedure the correct patient, procedure, and site was verified Verbal consent obtained: Yes Supporting Documentation: Indications: Pain Procedure Details: Location: Knee Site: L knee Prep: patient was prepped and draped in usual sterile fashion Needle Size: 22 G Approach: Superior lateral Ultrasound guided: No Medications: 80 mg triamcinolone 40 mg/mL; 6 mL BUPivacaine HCl 0.25 % (2.5 mg/mL) Patient tolerance: Patient tolerated the procedure well with no immediate complications us Malik Chan MD IN CLINIC/BEDSIDE ORDERAB LES Final Result * Screening Mammogram (11/24/2024 7:51 AM MANAGER UTILITIES) Anatomical Region Laterality Modality Breast N/A Mammography us Historical Provider IMG MAMMO PROCEDURES Vanessa l Result from Last 3 Months or Most Recently Relevant to Health Maintenance Insurance IDPA IDPA [facility] MEDICARE HMO [facility] MEDICARE HMO IDPA Advance Directives For more information, please contact: [phone] * Full Code (Latest Code Status on File) Date Activated Date Inactivated Comments 04/12/2024 5:42 PM 04/16/2024 12:17 AM Care Teams Biopsychologist Relationship Specialty Start Date End Date Kaycee Marie MD PCP - General Family Medicine 01/30/24
--- OUTSIDE RECORDS SUMMARY | 2025-10-25 03:16 | XMS_ITS | Clinical Summary ---
Author Organization [facility] Address [employer] [facility] [place] [address] Care Team Providers Care Provisioning Analyst Name Role Phone Kaycee Marie MD Primary Care Provider [phone] Source Comments [facility],non-[facility] Affiliates and Associated Physician Practices is amultiple site organization consisting of ambulatory clinics and hospital sitesin [place], [place], [place] and [place]. This disclosure is being madepursuant to the Care Everywhere program and may not contain all information available regarding this patient. Last updated 18.[facility] Allergies No known active allergies Medications * [...] Years Used Date Smoking Tobacco: Former Cigarettes 14 1 981 - 1994 Smokeless Tobacco: Never Alcohol Use [...] on file Legal Sex Female 6:15 AM GLOBAL SALES MANAGER Gender Identity Not on file Sexual Orientation Not on file Last Filed Vital Signs Vital Sign Reading Time Taken Comments Blood Pressure 119/82 10/18/2021 9:55 AM GLOBAL SALES MANAGER Pulse 73 10/18/2021 9:55 AM GLOBAL SALES MANAGER Temperature 36.2 C (97.1 F) 10/18/2021 6:15 AM GLOBAL SALES MANAGER Respiratory Rate 12 10/18/2021 9:55 AM GLOBAL SALES MANAGER Oxygen Saturation 97% 10/18/2021 10:05 AM GLOBAL SALES MANAGER Inhaled Oxygen Concentration - - Weight 97.1 kg (214 lb) 10/18/2021 6:15 AM GLOBAL SALES MANAGER Height 170.2 cm (5' 7) 10/11/2021 1:09 PM GLOBAL SALES MANAGER Body Mass Index 33.52 10/11/2021 1:09 PM GLOBAL SALES MANAGER Plan of Treatment Health Maintenance Due Date Last Done Comments COLON MONITORING 1967 COLONOSCOPY - COLON CA SCREENING 1967 CT COLONOGRAPHY - COLON CA SCREENING 1967 FIT - COLON CA SCREENING 1967 [...] 12/14/2020 8, 12/10/2017, 12/09/2017, Additional history exists DEPRESSION SCREENING 11/03/2024 COVID-19 VACCINE (3 - season) 2025 09/29/2021, 01/09/2021 INFLUENZA VACCINE (#1) 2025 2, 07/16/2021, 07/11/2020, Additional history exists COLOGUARD (AGES 45-75) - COLON CA SCREENING 10/21/2027 10/21/2024 Colorectal Cancer Screening 10/21/2027 HIB VACCINE Aged Out No longer eligi [...] this topic Medical Devices Implanted Type Area Sterilization Specialist Device Identifier Shelf Expiration Date Model / Serial / Lot Vtoss Bone Graft Implanted:Qty: 1 on 12/05/2017 by George Sanchez DPM at [facility] Right: Foot [id number] / / [id number] Stpl Bone [id number] 3mm Easyclip Implanted:Qty: 1 on 12/05/2017 by George Sanchez DPM at [facility] Right: Ankle [employer] 06/03/2020 [id number] / / [id number] 7.0mm / 70 Mm Headless Compression Screw Implanted:Qty: 1 on 12/05/2017 by George Sanchez DPM at [facility] Right: Ankle [id number] / / 50 Mm Screw Implanted:Qty: 1 on 12/05/2017 by George Sanchez DPM at [facility] Right: Ankle [id number] / / Ti Asanis Iii Washer 5.0 Mm Implanted:Qty: 1 on 12/05/2017 by George Sanchez DPM at [facility] Right: Ankle [id number] / / Screw 3mm 16mm Chaitanya Rvrs Cut Flut Slf Cut Implanted:Qty: 2 on 09/24/2019 at [facility] Left: Foot [employer] [id number] / / Graft Bone Alfs + Dbm 1cc Algrf Pst Implanted:Qty: 1 on 10/18/2021 by George Sanchez DPM at [facility] Right: Foot [employer] 05/30/2022 [id number] / / [id number] Wire K .045in 6in 2 End Troc Pnt Smth Ss Implanted:Qty: 4 on 10/18/2021 by George Sanchez DPM at [facility] Right: Foot [employer] [id number] / / Explanted Type Area Sterilization Specialist Device Identifier Shelf Expiration Date Model / Serial / Lot Pin Fx 2.5mm Smth 100mm Orth Stnm Ss Ns Explanted:Qty: 2 on 12/05/2017 at [facility] Right: Ankle [employer] [id number] / / Gw Orth 2mm 150mm Unthread Fixos Explanted:Qty: 2 on 12/05/2017 at [facility] Right: Ankle [employer] [id number] / / Gw Orth 3.2mm 150mm Unthread Explanted:Qty: 1 on 12/05/2017 at [facility] Right: Ankle [employer] [id number] / / Wire K 1.2mm 100mm 3mm Asns Chaitanya Screw Fx Explanted:Qty: 2 on 09/24/2019 at [facility] Left: Foot [employer] [id number] / / Procedures Procedure Name Priority Date/Time Associated Diagnosis Comments BASIC METABOLIC PANEL (CALCIUM TOTAL) AM Draw 12/14/2017 5:06 AM GLOBAL SALES MANAGER from Last 3 Months or Most Recently Relevant to Health Maintenance Results * (ABNORMAL) BASIC METABOLIC PANEL (CALCIUM TOTAL) (12/14/2017 5:06 AM GLOBAL SALES MANAGER) Glucose 79 74 - 106 mg/dL 12/14/2017 5:31 AM [facility] Sodium 140 136 - 145 mmol/L 12/14/2017 5:31 AM [facility] Potassium 3.8 3.5 - 5.1 mmol/L 12/14/2017 5:31 AM [facility] Chloride 105 98 - 107 mmol/L 12/14/2017 5:31 AM [facility] CO2 28 22 - 31 mmol/L 12/14/2017 5:31 AM [facility] Calcium 9.5 8.5 - 10.1 mg/dL 12/14/2017 5:31 AM [facility] Anion Gap 7(L) 8 - 16 mmol/L 12/14/2017 5:31 AM [facility] BUN 10 7 - 21 mg/dL 12/14/2017 5:31 AM [facility] Creatinine 0.65 0.50 - 1.30 mg/dL 12/14/2017 5:31 AM [facility] eGFR by MDRD >60 >60 mL/min/1.7 3m2 12/14/2017 5:31 AM [facility] eGFR by MDRD >60 >60 mL/min/1.7 3m2 12/14/2017 5:31 AM [facility] Blood BLOOD SPECIMEN / Unknown Venipuncture / Unknown 12/14/2017 5:06 AM GLOBAL SALES MANAGER 12/14/2017 5:10 AM GLOBAL SALES MANAGER us Osvaldo Hawkins MD LAB - CHEMISTRY ORDERABLES Vanessa braga Result [facility] [address] [place] [address] from Last 3 Months or Most Recently Relevant to Health Maintenance Advance Directives * Full Code (Latest Code Status on File) Date Activated Date Inactivated Comments 12/05/2017 2:29 PM 12/15/2017 2:21 PM Care Teams Provisioning Analyst Relationship Specialty Start Date End Date Kaycee Marie MD [address] [place] [address] PCP - General Family Medicine 09/17/19
[2025-10-25 03:20] VITALS: BP 134/87; PULSE 88; RESP 14; TEMP 36.4; O2SAT 100
--- NOTE | 2025-10-25 07:33 | ED.GENADULT ---
HPI - General Adult General Chief complaint: Extremity Injury, Upper Stated complaint: L arm pain I may have torn a muscle Time Seen by Provider: 10/25/25 06:53 History of Present Illness HPI narrative: 60-year-old female present to the emergency department for evaluation of left shoulder pain. Patient does have prior history of eye right shoulder replacement. Patient states she was pulling a heavy car with bottles of water up some stairs and had pain in her left shoulder. Patient reports pain does radiate down to her elbow into her hand. Patient did take Advil for pain control prior to arrival. Patient reports since being in the emergency department and lying down the shoulder pain has since improved. Patient does have good range of motion of the shoulder elbow and wrist. Patient denies any other falls or injuries. Related Data Allergies Allergy/AdvReac Type Severity Reaction Status Date / Time No Known Allergies Allergy Verified 10/25/25 03:19 Review of Systems Review of Systems: All systems reviewed & are unremarkable except as noted in HPI and below PMFSH Past Medical History Medical History Traumatic arthritis of left knee Strain of left calf muscle Hyperlipidemia Radiculopathy Bipolar 1 disorder Obesity Schizophrenia Surgical History Surgical History H/O shoulder surgery H/O knee surgery H/O: hysterectomy (~2014) S/P foot surgery, right (~2018) Family History Family History Mother Depression Family history of mental disorder Sibling Patient's brother is in good health Father Patient's father is Social History Social History Smoking packs per day: 1 Smoking cigarettes per day: 20.0 Years smoked: 15 Smoking pack-years: 15.00 Smoking status: Former smoker Tobacco type: cigarettes Second hand tobacco smoke exposure: No Smoking end date: 11/03/92 Alcohol intake: never Substance use: never Substance use type: does not use Lack of Transportation: No Lack of Food: Never True Current Housing: I Have Housing Concerned About Future Housing: No Difficulty Paying Gas/Electric Bills: No Difficulty Paying for Meds: No Currently Unemployed: No Education: High School Diploma/GED Difficulty w/ Childcare or Family Care: No Living arrangements: alone Occupation/Education: retired Gender identity (if verbalized by the patient): Female Spiritual care concerns: No Exam Narrative: APPEARANCE: Well appearing, no pain, no distress, well-nourished. HEAD: normocephalic, atraumatic. EYES: PERRLA/EOMI, conjunctivae clear. NOSE: Normal no drainage NECK: Supple. No adenopathy, no masses. RESPIRATORY: Airway patent, respirations nonlabored. Clear to auscultation bilaterally, no rales, rhonchi, wheezing. CARDIOVASCULAR: Regular rate and rhythm without murmurs rubs or gallops. ABDOMINAL: Soft, nontender, nondistended, normal bowel sounds MUSCULOSKELETAL: Moves all extremities. Strength/ROM intact, No edema, No calf tenderness. NEURO: Alert. Cranial nerves II through XII intact. Good gait. Good coordination SKIN: Warm, dry. Normal Color Course Vital Signs Vital signs: Vital Signs Temperature 97.5 F L 10/25/25 03:20 Pulse Rate 88 10/25/25 03:20 Respiratory Rate 14 10/25/25 03:20 Blood Pressure 134/87 10/25/25 03:20 Pulse Oximetry 100 10/25/25 03:20 Oxygen Delivery Room Air 10/25/25 03:20 Temperature 97.5 F L 10/25/25 03:20 Pulse Rate 66 10/25/25 08:05 Respiratory Rate 16 10/25/25 08:05 Blood Pressure 121/66 10/25/25 08:05 Pulse Oximetry 99 10/25/25 08:05 Oxygen Delivery Room Air 10/25/25 03:20 [facility] Narrative Medical decision making narrative: 60-year-old female present to the emergency department for evaluation for left shoulder pain. X-rays were negative for acute fracture dislocation. Patient does describe symptoms consistent with a rotator cuff strain or arm strain. Patient will be provided a sling for comfort and support. Patient will be started on anti-inflammatories. Patient also provided a muscle relaxant. Patient was encouraged close follow-up with Orthopedics. All questions concerns were addressed patient was well-appearing at time of discharge. Differential Diagnosis Differential Diagnosis: Muscular strain, rotator cuff strain, humerus fracture, shoulder dislocation Imaging Data Attestation: I personally reviewed and interpreted this imaging study as follows: My impression: left shoulder x-ray: No acute fracture or dislocation Discharge Plan Discharge Clinical Impression: Left shoulder strain Patient Disposition: Home Condition: Stable Instructions: Antibiotic Form, How to Use a Sling (ED), Shoulder Pain (ED) Additional Instructions: Your x-ray showed no acute fracture or dislocation. naproxen for pain control. Flexeril for muscle spasm. Sling as directed for comfort. Have close follow-up with Orthopedics. If you have any worsening symptoms then please call or return to the emergency department. Patient Language: Korean Prescriptions: New naproxen [Naprosyn] 500 mg tablet 500 mg PO BID 7 Days Qty: 14 0RF cyclobenzaprine 10 mg tablet 10 mg PO BID PRN (Reason: muscle spasm) Qty: 14 0RF Discontinued celecoxib [Celebrex] 200 mg capsule 200 mg PO BID PRN (Reason: pain) Qty: 180 0RF No Action bupropion HCl 150 mg tablet extended release 24 hr 150 mg PO QAM Qty: 90 3RF aripiprazole [Abilify] 5 mg tablet 5 mg PO DAILY Qty: 30 6RF fluconazole 150 mg tablet 150 mg PO DAILY Qty: 2 0RF tramadol 50 mg tablet 50 mg PO Q6H PRN (Reason: pain) Qty: 120 0RF Follow-up/Referrals: Tay Hoyt MD [Physician, Orthopedics] Quintin Jones MD [Primary Care Provider, Family Practice]
--- OUTSIDE RECORDS SUMMARY | 2025-10-25 07:44 | XMS_ITS | Encounter Summary ---
Author Organization [facility] Address [address] [place] [address] Care Team Providers Care Instructor Of Sociology Name Role Phone Kaycee Marie MD Primary Care Provider [phone] Encounter Details Date Type Department Care Team (Late st Contact Info) Description 10/15/2024 Orders Only [facility] [address] [place] [address] [place] [address] [facility] [address] [place], [place] [id number] Social History Tobacco Use Types Packs/Day Years Used Date Smoking Tobacco: Former Cigarettes Q uit: 1994 [facility] Utilities Answer Date Recorded In the [...] often do you attend chur ch or hinduism services? Never 04/13/2024 Do you belong to any clubs o r organizations such as zoroastrian groups, unions, fraternal or athletic groups, or [...] time in the past 12 m [facility], were you homeless or living in a long term (including now)? No 04/13/2024 Personal Safety Answer Date Recorded Have you ever been in or are you currently in a harmful physical or emotional relationship or is someone making you feel afraid or unsafe? Denies 04/12/2024 Comments No Sex and Gender Information Value Date Recorded Sex Assigned at Not on file Legal Sex Female 9:01 PM IT SECURITY CONSULTING DIRECTOR Gender Identity Not on file Sexual Orientation Not on file documented as of this encounter Plan of Treatment Upcoming Encounters Date Type Department Care Team (Late st Contact Info) Description 03/30/2026 Hospital Encounter [facility] Operating Room [address] [place] [address] Malik Chan MD [address] [place] [address] Scheduled Procedures Name Priority Associated Diagnoses Date/Ti me ARTHROPLASTY TOTAL KNEE - DEPUY Primary osteoarthritis of left knee documented as of this encounter Procedures Procedure Name Priority Date/Time Associated Diagnosis Comments SCAN - RADIOLOGY/IMAGING 10/15/2024 11:38 AM IT SECURITY CONSULTING DIRECTOR documented in this encounter Results * SCAN - RADIOLOGY/IMAGING (10/15/2024 11:38 AM IT SECURITY CONSULTING DIRECTOR) Anatomical Region Laterality Modality Other us Laisha Coreas MD Final Resu lt documented in this encounter Visit Diagnoses Not on filedocumented in this encounter Care Teams Instructor Of Sociology Relationship Specialty Start Date End Date Kaycee Marie MD PCP - General Family Medicine 01/30/24 documented as of this encounter
--- OUTSIDE RECORDS SUMMARY | 2025-10-25 07:45 | XMS_ITS | Clinical Summary ---
Author Organization [facility] [employer] Address [facility] [place] [address] Care Team Providers Care Assistant At Surgery Name Role Phone Kaycee Marie MD Primary Care Provider [phone] [facility] [employer],non-[facility] Affiliates and Associated Physician Practices is amultiple site organization consisting of ambulatory clinics and hospital sitesin [place], [place], [place] and [place]. This disclosure is being madepursuant to the Care Everywhere program and may not contain all information available regarding this patient. Last updated 18.[facility] [employer] Allergies No known active allergies Medications * [...] on file Legal Sex Female 6:15 AM PARTNERSHIP MANAGER Gender Identity Not on file Sexual Orientation Not on file Last Filed Vital Signs Vital Sign Reading Time Taken Comments Blood Pressure 119/82 10/18/2021 9:55 AM PARTNERSHIP MANAGER Pulse 73 10/18/2021 9:55 AM PARTNERSHIP MANAGER Temperature 36.2 C (97.1 F) 10/18/2021 6:15 AM PARTNERSHIP MANAGER Respiratory Rate 12 10/18/2021 9:55 AM PARTNERSHIP MANAGER Oxygen Saturation 97% 10/18/2021 10:05 AM PARTNERSHIP MANAGER Inhaled Oxygen Concentration - - Weight 97.1 kg (214 lb) 10/18/2021 6:15 AM PARTNERSHIP MANAGER Height 170.2 cm (5' 7) 10/11/2021 1:09 PM PARTNERSHIP MANAGER Body Mass Index 33.52 10/11/2021 1:09 PM PARTNERSHIP MANAGER Plan of Treatment Health Maintenance Due [...] this topic Medical Devices Implanted Type Area Central Office Equipment Engineer Device Identifier Shelf Expiration Date Model / Serial / Lot Vtoss Bone Graft Implanted:Qty: 1 on 12/05/2017 by George Sanchez DPM at [facility] Right: Foot [id number] / / [id number] Stpl Bone [id number] 3mm Easyclip Implanted:Qty: 1 on 12/05/2017 by George Sanchez DPM at [facility] Right: Ankle [employer] Inc 06/03/2020 [id number] / / [id number] 7.0mm / 70 Mm Headless Compression Screw Implanted:Qty: 1 on 12/05/2017 by George Sanchez DPM at [facility] Right: Ankle [id number] / / 50 Mm Screw Implanted:Qty: 1 on 12/05/2017 by George Sanchez DPM at [facility] Right: Ankle [id number] / / Ti Asanis Iii Washer 5.0 Mm Implanted:Qty: 1 on 12/05/2017 by George Sanchez DPM at [facility] Right: Ankle [id number] / / Screw 3mm 16mm Chaitanya Rvrs Cut Flut Slf Cut Implanted:Qty: 2 on 09/24/2019 at [facility] Left: Foot [employer] [id number] / / Graft Bone Alfs + Dbm 1cc Algrf Pst Implanted:Qty: 1 on 10/18/2021 by George Sanchez DPM at [facility] Right: Foot [employer] 05/30/2022 [id number] / / [id number] Wire K .045in 6in 2 End Troc Pnt Smth Ss Implanted:Qty: 4 on 10/18/2021 by George Sanchez DPM at [facility] Right: Foot [employer] [id number] / / Explanted Type Area Central Office Equipment Engineer Device Identifier Shelf Expiration Date Model / Serial / Lot Pin Fx 2.5mm Smth 100mm Orth Stnm Ss Ns Explanted:Qty: 2 on 12/05/2017 at [facility] Right: Ankle [employer] [id number] / / Gw Orth 2mm 150mm Unthread Fixos Explanted:Qty: 2 on 12/05/2017 at [facility] Right: Ankle [employer] [id number] / / Gw Orth 3.2mm 150mm Unthread Explanted:Qty: 1 on 12/05/2017 at [facility] Right: Ankle [employer] [id number] / / Wire K 1.2mm 100mm 3mm Asns Chaitanya Screw Fx Explanted:Qty: 2 on 09/24/2019 at [facility] Left: Foot [employer] [id number] / / Procedures Procedure Name Priority Date/Time Associated Diagnosis Comments BASIC METABOLIC PANEL (CALCIUM TOTAL) AM Draw 12/14/2017 5:06 AM PARTNERSHIP MANAGER from Last 3 Months or Most Recently Relevant to Health Maintenance Results * (ABNORMAL) BASIC METABOLIC PANEL (CALCIUM TOTAL) (12/14/2017 5:06 AM PARTNERSHIP MANAGER) Glucose 79 74 - 106 mg/dL 12/14/2017 5:31 AM [facility] Sodium 140 136 - 145 mmol/L 12/14/2017 5:31 AM [facility] Potassium 3.8 3.5 - 5.1 mmol/L 12/14/2017 5:31 AM [facility] Chloride 105 98 - 107 mmol/L 12/14/2017 5:31 AM [facility] CO2 28 22 - 31 mmol/L 12/14/2017 5:31 AM [facility] Calcium 9.5 8.5 - 10.1 mg/dL 12/14/2017 5:31 AM [facility] Anion Gap 7(L) 8 - 16 mmol/L 12/14/2017 5:31 AM [facility] BUN 10 7 - 21 mg/dL 12/14/2017 5:31 AM [facility] Creatinine 0.65 0.50 - 1.30 mg/dL 12/14/2017 5:31 AM [facility] eGFR by MDRD >60 >60 mL/min/1.7 3m2 12/14/2017 5:31 AM [facility] eGFR by MDRD >60 >60 mL/min/1.7 3m2 12/14/2017 5:31 AM [facility] Blood BLOOD SPECIMEN / Unknown Venipuncture / Unknown 12/14/2017 5:06 AM PARTNERSHIP MANAGER 12/14/2017 5:10 AM PARTNERSHIP MANAGER us Osvaldo Hawkins MD LAB - CHEMISTRY ORDERABLES Vanessa braga Result [facility] [address] [place] [address] from Last 3 Months or Most Recently Relevant to Health Maintenance Advance Directives * Full Code (Latest Code Status on File) Date Activated Date Inactivated Comments 12/05/2017 2:29 PM 12/15/2017 2:21 PM Care Teams Assistant At Surgery Relationship Specialty Start Date End Date Kaycee Marie MD [address] [place] [address] PCP - General Family Medicine 09/17/19
--- OUTSIDE RECORDS SUMMARY | 2025-10-25 07:45 | XMS_ITS | Clinical Summary ---
Author Organization [facility] [place] [address] [place] Address [address] [place] [address] Care Team Providers Care Inside Solar Sales Consultant Name Role Phone Kaycee Marie MD Primary Care Provider [phone] Allergies Active Allergy Reactions Criticality Noted Date Comments Hydrocodone-Acetaminophen Mental status changes Low 04/13/2024 Medications buPROPion XL (WELLBUTRIN XL) 150 mg 24 hr tablet Take 1 tablet (150 mg total) by mouth every morning Active multivit,Ca,iron-F E-efncol-lku [id number] ci-grw-kvs-mcg tablet Take 1 tablet by mouth every [...] Type Department Care Team Description 10/21/2025 Documentation [facility] Medicine Orthopaedic Surgery [address] [place] [address] [place] [id number] Belgica Oneill RN 10/12/2025 12:40 PM GYM INSTRUCTOR Office Visit [facility] Medicine Orthopaedic Surgery [address] [place] [address] 4 [address] [place] [address] Malik Chan MD Left knee pain, unspecified chronicity (Primary Dx); Primary osteoarthritis of left knee; Chronic pain of left knee 10/12/2025 12:15 PM GYM INSTRUCTOR - 10/12/2025 11:59 PM GYM INSTRUCTOR Hospital Encounter [facility] [address] [place] [address] Left knee pain, unspecified chronicity Discharge Disposition: [...] Tobacco: Never Tobacco Cessation:Counseling Given: Not Answered [facility] Utilities Answer Date Recorded In the past 12 months has [employer], gas, oil, or water company threatened to [...] you attend [facility] or confucianism services? Never 04/13/2024 Do you belong to any clubs o r organizations such as restoration groups, unions, fraternal or athletic groups, or [...] in the past 12 m [facility], were you homeless or living in a alf (including now)? No 04/13/2024 Personal Safety Answer Date Recorded Have you ever been in or are you currently in a harmful physical or emotional relationship or is someone making you feel afraid or unsafe? Denies 12/16/2024 Comments No Sex and Gender Information Value Date Recorded Sex Assigned at Not on file Legal Sex Female 9:01 PM GYM INSTRUCTOR Gender Identity Not on file Sexual Orientation Not on file Obstetrics History Para Term AB IAB SAB Ectopic Multiple Livin g Live Births 0 0 0 0 0 0 0 0 0 0 0 Last Filed Vital Signs Vital Sign Reading Time Taken Comments Blood Pressure 131/80 12/16/2024 2:30 PM GYM INSTRUCTOR Pulse 68 12/16/2024 2:30 PM GYM INSTRUCTOR Temperature 36.5 C (97.7 F) 12/16/2024 1:35 PM GYM INSTRUCTOR Respiratory Rate 12 12/16/2024 2:30 PM GYM INSTRUCTOR Oxygen Saturation 97% 12/16/2024 2:30 PM GYM INSTRUCTOR Inhaled Oxygen Concentration - - Weight 95.3 kg (210 lb 1.6 oz) 12/16/2024 9:29 A M GYM INSTRUCTOR Height 167.6 cm (5' 6) 11/24/2024 4:39 PM GYM INSTRUCTOR Body Mass Index 33.91 11/24/2024 4:39 PM GYM INSTRUCTOR Plan of Treatment Upcoming Encounters Date Type Department Care Team (Late st Contact Info) Description 03/30/2026 Hospital Encounter [facility] Operating Room [address] [place] [address] Malik Chan MD [address] [place] [address] Scheduled Procedures Name Priority Associated Diagnoses Date/Ti [...] this topic Medical Devices Implanted Type Area Project Production Engineer Device Identifier Shelf Expiration Date Model / Serial / Lot Metal Bilateral: Foot [employer] Arthrex 24mm Modular Shoulder +4mm Baseplate Glenoid Sterile [id number] - [id number] Implanted:Qty: 1 on 04/12/2024 by Malik Leavitt MD at [facility] Right: Shoulder [employer] Inc [id number] 11/02/2028 AR-9560-2 4-4 / / [id number] Arthrex Inc [facility] Shoulder 8 Stem Humeral Ar-9501-08s - [id number] Implanted:Qty: 1 on 04/12/2024 by Malik Leavitt MD at [facility] Right: Shoulder [employer] Inc [id number] 04/02/2028 AR-9501-0 8S / / [id number] Ar[employer]rex Inc Arthrex 25mm Central Modular Shoulder Screw Baseplate Sterile Ar-9561-25s - [id number] Implanted:Qty: 1 on 04/12/2024 by Malik Leavitt MD at [facility] Right: Shoulder [employer] Inc [id number] 11/02/2027 AR-9561-2 5S / / [id number] Ar[employer]rex Inc 36mm 24 Baseplate Taper Sphere Glenoid [id number] - [id number] Implanted:Qty: 1 on 04/12/2024 by Malik Leavitt MD at [facility] Right: Shoulder [employer] Inc [id number] 06/02/2028 AR-9564-2 436 / / [id number] Ar[employer]rex Inc 4.5mm 32mm Peripheral Screw Bone Sterile Gm-[id number] - [id number] Implanted:Qty: 1 on 04/12/2024 by Malik Leavitt MD at [facility] Right: Shoulder [employer] Inc [id number] 09/02/2028 AR-9562-3 2NL / / [id number] Ar[employer] Inc 4.5mm 32mm Peripheral Screw Bone Sterile Kv-[id number] - [id number] Implanted:Qty: 1 on 04/12/2024 by Malik Leavitt MD at [facility] Right: Shoulder [employer] Inc [id number] 09/02/2028 AR-9562-3 2NL / / [id number] Ar[employer] Inc Screw Glenoid Locking Reverse Univers Revers 5.5x20mm Titanium Ar-9563-20 - [id number] Implanted:Qty: 1 on 04/12/2024 by Malik Leavitt MD at [facility] Right: Shoulder [employer] Inc [id number] 11/02/2028 AR-9563-2 0 / / [id number] Ar[employer]rex Inc Screw Glenoid Locking Reverse Univers Revers 5.5x20mm Titanium Ar-9563-20 - [id number] Implanted:Qty: 1 on 04/12/2024 by Malik Leavitt MD at [facility] Right: Shoulder [employer] Inc [id number] 11/02/2028 AR-9563-2 0 / / [id number] Ar[employer]rex Inc Arthrex Univers Revers 36mm Suture Cup Humeral Sterile Latex Free [id number]-[id number] - [id number] Implanted:Qty: 1 on 04/12/2024 by Malik Leavitt MD at [facility] Right: Shoulder Ar[employer] Inc [id number] 11/02/2028 AR-9502F- 36CPC / / [id number] Arthrex Inc Univers Revers 36mm Shoulder +3mm Small Insert Humeral Sterile Ar-9503s-03 - [id number] Implanted:Qty: 1 on 04/12/2024 by Malik Leavitt MD at [facility] Right: Shoulder [employer] Inc [id number] 09/02/2028 AR-9503S- 03 / / [id number] Procedures Procedure Name Priority Date/Time Associated Diagnosis Comments XR KNEE LEFT 4 OR MORE VIEWS Schedule Routine, Read Routine (OP Routine) 10/12/2025 1:06 PM GYM INSTRUCTOR Left knee pain, unspecified chronicity OK ARTHROCENTESIS ASPIR&/INJ MAJOR JT/BURSA W/O US Routine 10/12/2025 12:40 PM GYM INSTRUCTOR Primary osteoarthritis of left knee Chronic pain of left knee SCREENING MAMMOGRAM Schedule Routine, Read Routine (OP Routine) 11/24/2024 7:51 AM GYM INSTRUCTOR from Last 3 Months or Most Recently Relevant to Health Maintenance Results * XR Knee Left 4 or More Views (10/12/2025 1:06 PM GYM INSTRUCTOR) Anatomical Region Laterality Modality Lower Extremities, Knee Left Computed Radiography 10/12/2025 1:33 PM GYM INSTRUCTOR Impressions 10/12/2025 3:28 PM GYM INSTRUCTOR 1. Moderate lateral compartment predominant tricompartmental left [...] Beto Keen M.D. Narrative 10/12/2025 3:28 PM GYM INSTRUCTOR EXAMINATION: XR KNEE LEFT 4 OR MORE [...] IMG XR PROCEDURES Final R esult * OK ARTHROCENTESIS ASPIR&/INJ MAJOR JT/BURSA W/O US (10/12/2025 12:40 PM GYM INSTRUCTOR) Narrative Malik Chan MD - 10/12/2025 12:40 PM GYM INSTRUCTOR Malik Chan MD 10/16/2025 11:54 PM Large [...] Result * Screening Mammogram (11/24/2024 7:51 AM GYM INSTRUCTOR) Anatomical Region Laterality Modality Breast N/A Mammography us Historical Provider IMG MAMMO PROCEDURES Vanessa l Result from Last 3 Months or Most Recently Relevant to Health Maintenance Insurance IDPA IDPA [facility] MEDICARE HMO [facility] MEDICARE HMO IDPA Advance Directives For more information, please contact: [phone] * Full Code (Latest Code Status on File) Date Activated Date Inactivated Comments 04/12/2024 5:42 PM 04/16/2024 12:17 AM Care Teams Inside Solar Sales Consultant Relationship Specialty Start Date End Date Kaycee Marie MD PCP - General Family Medicine 01/30/24
[2025-10-25 08:05] VITALS: BP 121/66; PULSE 66; RESP 16; O2SAT 99
== END 2025-10-25 08:07 | disposition home or self-care (01) ==
PROVIDERS: Emergency Provider Emergency Medicine; PCP Family Medicine Adolescent Medicine
DX: S46.912A Strain of unspecified muscle, fascia and tendon at shoulder and upper arm level, left arm, initial encounter (principal); E78.5 Hyperlipidemia, unspecified; F31.9 Bipolar disorder, unspecified; F20.9 Schizophrenia, unspecified; Z96.611 Presence of right artificial shoulder joint; Z87.891 Personal history of nicotine dependence; Z90.710 Acquired absence of both cervix and uterus; Z79.899 Other long term (current) drug therapy; X50.0XXA Overexertion from strenuous movement or load, initial encounter
CPT/HCPCS: 73030; 99283; A4565